=== PATIENT | female | born 1955 | race Caucasian/White ===

== ENCOUNTER → 2017-06-08 | Outpatient (CLI) | payer BC ==
--- NOTE | 2017-06-08 14:04 | MAMMOGRAPHY REPORT ---
BILATERAL DIGITAL SCREENING MAMMOGRAM TOMOSYNTHESIS WITH CAD: 06/08/2017 CLINICAL HISTORY: Routine screening. Patient has no complaints. TECHNIQUE: Breast tomosynthesis in addition to standard 2D mammography was performed. Current study was also evaluated with a Computer Aided Detection (CAD) system. COMPARISON: Comparison is made to exams dated: 05/24/2016 mammogram, 04/16/2015 mammogram, 02/18/2014 m ammogram, 01/31/2013 mammogram, 01/09/2012 mammogram, and 11/15/2010 mammogram - [facility] nter. BREAST COMPOSITION: There are scattered areas of fibroglandular density in both breasts. FINDINGS: No suspicious masses, calcifications, or areas of architectural distortion are noted in ei ther breast. There has been no significant interval change compared to prior exams. There are stable nodular asymmetries in the left inferior breast. IMPRESSION: ACR BI-RADS CATEGORY 2: BENIGN There is no mammographic evidence of malignancy. A 1 year screening mammogram is recommended. The pa tient will receive written notification of the results. Approximately 10% of breast cancers are not detected with mammography. A negative mammographic report should not delay biopsy if a clinically suggestive mass is present. Bel Mir M.D. /:06/08/2017 08:59:23 Cloth Inspector: Tash SHAW)(M), [facility] letter sent: Normal 1/2 BI-RADS Code: ACR BI-RADS Category 2: Benign
== END | disposition home or self-care (01) ==
LOC: C.MAMM 08:26
PROVIDERS: ATTEND Physician Assistant
DX: Z12.31 Encounter for screening mammogram for malignant neoplasm of breast (principal)

== ENCOUNTER 2022-01-18 17:34 | Observation (INO) ==
[2022-01-18 18:10] LABS: Basophils # (auto) 0.03 K/uL (0-0.2); Basophils % (auto) 0.3 %; Eosinophils # (auto) 0.01 K/uL (0-0.5); Eosinophils % (auto) 0.1 %; Hematocrit (blood only) 44.9 % (37-47); Hemoglobin 15.2 g/dL (12.0-16.0); Immature Granulocytes # (auto) 0.02 K/uL (0.00-0.02); Immature Granulocytes % (auto) 0.2 %; Lymphocytes % (auto) 5.1 %; Mean Corpuscular Hemoglobin 30.3 pg (25-34); Mean Corpuscular Hgb Conc 33.9 g/dL (32-36); Mean Corpuscular Volume 89.6 fL (80-100); Mean Platelet Volume 10.5 fL (7.4-10.4); Monocytes # (auto) 0.02 K/uL (0.11-0.59); Monocytes % (auto) 0.2 %; Neutrophils % (auto) 94.1 %; Platelet Count 250 K/uL (130-400); RDW Coefficient of Variation 12.9 % (11.5-14.5); RDW Standard Deviation 42.1 fL (36.4-46.3); Red Blood Count 5.01 M/uL (4.2-5.4); White Blood Count 9.78 K/uL (4.8-10.8)
[2022-01-18 18:26] LABS: Albumin Globulin Ratio 1.5 (0.9-2); Albumin Level 4.4 gm/dl (3.4-5.0); BUN Creatinine Ratio 20.6 (10-20); Bilirubin,Total 0.5 mg/dl (0.2-1.0); Calcium 9.4 mg/dl (8.5-10.1); Creatinine Clr Calc Pharmacy 84.6 ml/min; Est GFR (African American) 104.9 ml/min; Est GFR (Non-African American) 90.5 ml/min; Globulin 2.9 gm/dl (2.5-4.0); Potassium 3.7 mmol/L (3.5-5.1); Total Protein 7.3 gm/dl (6.0-8.3)
[2022-01-18] MEDS ORDERED: SODIUM CHLORIDE 0.9% 1000ML 1,000 ML IV ONE (20:03)
[2022-01-18] MEDS ORDERED: OPTIRAY 320 100ml IV ONE (20:13)
--- NOTE | 2022-01-18 20:29 | Emergency Department Note ---
Impression & Plan Acute appendicitis, Abdominal pain, Hepatic steatosis, Pulmonary nodule ED Provider Note NAME: EDILBERTO LEAL AGE: 66 SEX: F : 1955 ARRIVES VIA: Walk-In INFORMANT: Patient, ED PROVIDER(S): Mika Sotelo MD Chief Complaint: Abdominal pain HPI: Patient presents due to concern for abdominal pain which is described as emanating from the epigastrium area and rating down to her vagina. The patient states that this began after eating lunch today. The patient states that her pain is quite severe and did have some associated nausea but no vomiting. The patient did take some [id number] medications which did slightly improve her symptoms and currently rates it a 6 out of 10 in nature. Patient denies any fevers but did have some chills. The patient denies any dysuria hematuria. The patient has had a recent bowel movement denies any blood in the stools. Patient denies any prior history of abdominal surgeries. The patient states that she had a bout of this that she attributed to eating the same meal for about a week in duration back in August and thought that this may have been similar. The patient thought this might have been due to greasy foods. Patient states that she does have some occasional right upper quadrant pain as well. Patient denies any recent trauma heavy lifting twisting or turning. The patient does not notice any abdominal masses or swelling. ROS: See HPI for pertinent positives and negatives. A total of 10 systems were reviewed and otherwise negative. Past medical history: See below Surgical history: See below Social history: See below Physical Exam: GENERAL: NAD, wearing glasses, wearing a mask, non-toxic. EYE EXAM: Normal conjunctiva. PERRL, no anisocoria and EOM's grossly intact w/o pain. NECK: Supple, no nuchal rigidity, no adenopathy, non-tender. No signs of meningismus. LUNGS: Clear to auscultation. Normal chest wall mechanics. HEART: NSR, no MRG. ABDOMEN: Abdomen soft, epigastric and right upper quadrant pain, suprapubic and right lower quadrant pain, negative obturators and psoas normo-active bowel sounds, no masses, no rebound or guarding. BACK: No CVA TTP. SKIN: No rashes and no bruising. UPPER EXTREMITIES: Upper extremities are grossly normal. LOWER EXTREMITIES: Grossly normal, no edema. NEURO EXAM: A&O x3, cranial nerves II-XII grossly intact, normal speech, moves all 4 extremities on command w/o issue. Differential diagnoses: Appendicitis, ovarian cyst, ovarian torsion, ectopic , TOA, PID, infections, diverticulitis, UTI, obstruction, mesenteric ischemia, aortic pathology, inflammatory bowel disease, renal colic, PUD, pancreatitis, biliary pathology, hernia, volvulus, constipation, as well as oth er pathologies. Course: Patient was seen and evaluated the bedside. Full history physical exam was performed. Imaging Studies: See Below Cardiac monitoring: An order was placed for continuous cardiac monitoring. The monitor shows a rate of 94 with sinus rhythm. MDM: Patient presented to for abdominal pain. Blood work is obtained along with CT abdomen pelvis. The patient has a normal white count H&H and platelet count. Kidney function unremarkable. Mild elevation in blood sugar 158. Patient's LFTs and lipase are unremarkable. Patient CT abdomen pelvis did show concern for appendicitis. Patient was ordered Mefoxin and ordered a Covid test. I did speak to the on-call general surgeon Dr. Hernandes the patient was admitted to the surgical service and pending operative treatment in the OR. Past Med/Surg History Medical History Arthritis Hypertension Hypothyroidism Prediabetes Rectocele Surgical History H/O oral surgery Tooth extraction History of tonsillectomy History of vaginal hysterectomy with anterior and posterior repair Family History Mother Lung cancer Hypothyroidism Father Diabetes Hypertension Sister Hypothyroidism Denies family history of Ovarian cancer Breast cancer Colorectal cancer Social History Smoking Status: Never smoker Preferred Language: [place]rugu[place] Feels Safe at Home: Yes Allergies Allergies Allergy/AdvReac Type Severity Reaction Status Date / Time ibuprofen Allergy Mild rash, hives Verified 01/18/22 20:13 Penicillins Allergy Mild rash, hives Verified 01/18/22 20:13 Sulfa (Sulfonamide Allergy Unknown rash, hives Verified 01/18/22 20:13 Antibiotics) aspirin Allergy Unknown Verified 01/18/22 20:13 Home Meds Home Medications Medication Instructions Recorded Confirmed amlodipine 5 mg tablet 5 mg PO DAILY 02/25/20 01/18/22 biotin 1 mg capsule 0 mg PO DAILY 01/18/22 01/18/22 cholecalciferol (vitamin D3) 25 0 mcg PO DAILY 01/18/22 01/18/22 mcg (1,000 unit) tablet (Vitamin D3) levothyroxine 100 mcg tablet 100 mcg PO DAILY 01/18/22 01/18/22 loratadine 10 mg tablet (Claritin) 10 mg PO DAILY PRN 01/18/22 01/18/22 Results & Data (ED) Vital Signs Vital Signs - 24 hr 01/18/22 17:39 01/18/22 21:00 Temperature 37.1 C Temperature Source Temporal Artery Scan Pulse Rate 110 H Pulse Rate [Right Finger] 92 H Pulse Rhythm [Right Finger] Regular Pulse Strength [Right Finger] Normal Respiratory Rate 19 18 Respiratory Effort / Characteristics Non-Labored Spontaneous Respiratory Depth Normal Blood Pressure 159/84 H Blood Pressure [Right Arm] 177/95 H Blood Pressure Mean 109 Blood Pressure Mean [Right Arm] 122 Blood Pressure Position [Right Arm] Lying Pulse Oximetry 97 97 Oxygen Delivery Method Room Air Room Air Sepsis Recent Fever Within 48 Hours No Sepsis New/Unexplained Change in Mental Status N/A Sepsis Action Taken by Nursing No Action Required Home Medications Current Medication List: was personally reviewed by me Laboratory Data Attestation: I reviewed the patient's lab results. Result diagrams: 01/18/22 17:53 01/18/22 17:53 Lab Results 01/18/22 01/18/22 Range/Units 17:53 17:53 WBC 9.78 (4.8-10.8) K/uL RBC 5.01 (4.2-5.4) M/uL Hgb 15.2 (12.0-16.0) g/dL Hct 44.9 (37-47) % MCV 89.6 (80-100) fL MCH 30.3 (25-34) pg MCHC 33.9 (32-36) g/dL RDW Std Deviation 42.1 (36.4-46.3) fL RDW Coeff of Abilio 12.9 (11.5-14.5) % Plt Count 250 (130-400) K/uL MPV 10.5 H (7.4-10.4) fL Immature Gran % (Auto) 0.2 % Neut % (Auto) 94.1 % Lymph % (Auto) 5.1 % Pratt % (Auto) 0.2 % Eos % (Auto) 0.1 % Baso % (Auto) 0.3 % Neut # (Auto) 9.20 H (1.4-6.5) K/uL Lymph # (Auto) 0.50 L (1.2-3.4) K/uL Pratt # (Auto) 0.02 L (0.11-0.59) K/uL Eos # (Auto) 0.01 (0-0.5) K/uL Baso # (Auto) 0.03 (0-0.2) K/uL Immature Gran # (Auto) 0.02 (0.00-0.02) K/uL Sodium 137 (136-145) mmol/L Potassium 3.7 (3.5-5.1) mmol/L Chloride 101 (98-107) mmol/L Carbon Dioxide 24 (21-32) mmol/L Anion Gap 12 H (3-11) BUN 14 (6-23) mg/dl Creatinine 0.68 (0.6-1.2) mg/dl Est Cr Clr Drug Dosing 84.6 ml/min Est GFR ( Amer) 104.9 ml/min Est GFR (Non-Af Amer) 90.5 ml/min BUN/Creatinine Ratio 20.6 H (10-20) Glucose 158 H (70-99(Fasting)) mg/dl Calcium 9.4 (8.5-10.1) mg/dl Total Bilirubin 0.5 (0.2-1.0) mg/dl AST 18 (13-39) U/L ALT 25 (7-52) U/L Alkaline Phosphatase 62 (34-104) U/L Total Protein 7.3 (6.0-8.3) gm/dl Albumin 4.4 (3.4-5.0) gm/dl Globulin 2.9 (2.5-4.0) gm/dl Albumin/Globulin Ratio 1.5 (0.9-2) Lipase 19 (11-82) U/L Administered Medications Cefoxitin Sodium (Mefoxin) 2,000 mg in 60 mls @ 100 mls/hr IV NOW STA Stop: 01/18/22 21:50 Last Admin: 01/18/22 21:47 Dose: 100 mls/hr Documented by: [id number] Discontinued Medications Sodium Chloride (Nss 1000ml) 1,000 mls @ 999 mls/hr IV .Q1H1M ONE Stop: 01/18/22 21:03 Last Admin: 01/18/22 21:02 Dose: 999 mls/hr Documented by: [id number] Ioversol (Optiray 320 100ml) 93 ml IV ONCE ONE Stop: 01/18/22 20:14 Last Admin: 01/18/22 20:17 Dose: 93 ml Documented by: [id number] Imaging Data Radiologist's Impression: Abdomen/Pelvis CT 01/18/22 20:[address] WITH IV CONTRAST CT DOSE: 578.89 mGy.cm HISTORY: epigastric/RUQ pain and RLQ/suprapubic pain TECHNIQUE: Multiaxial CT images of the abdomen and pelvis were performed following the use of intravenous contrast. A dose lowering technique was utilized adhering to the principles of ALARA. COMPARISON STUDY: None. FINDINGS: There are 2 subcentimeter nodules within the right lower lobe with the largest on image 25 measuring 4 mm. No pneumoperitoneum. No pneumatosis. No fractures within the visualized osseous structures. There is a small hiatus hernia. Hepatic steatosis. The gallbladder, pancreas, spleen, adrenal glands are unremarkable. No hydronephrosis. Bilateral renal peripelvic cysts most pronounced on the left. Mild bladder wall thickening which is likely reactive. The main portal vein is patent. Normal caliber abdominal aorta. No retroperitoneal lymphadenopathy. Prior hysterectomy. 1 cm cyst within the right ovary. Normal left ovary. No evidence for small bowel obstruction. A few right- sided colonic diverticula. No evidence for acute diverticulitis. Mild thickening at the cecal base. The appendix is thick-walled and distended up to 1.4 cm. There is periappendiceal fat stranding and trace fluid within the right lower quadrant. Findings are consistent with acute appendicitis. No perforation or abscess at this time. Mild thickening within the adjacent sigmoid colon and terminal ileum is likely reactive to the acute appendicitis. Small calcified splenic artery aneurysm is noted. IMPRESSION: 1. Acute appendicitis. 2. Hepatic steatosis. 3. Subcentimeter nodules within the right lower lobe measure up to 4 mm. 4. Additional findings as described above. Please refer to below summary of Fleischner criteria recommendations for follow- up of incidental CT nodules (Rocky Shields, Guidelines for management of small pulmonary nodules detected on CT scans: A statement from the Fleischner Society, Radiology 237: [phone].) SOLID NODULES Solitary nodule size: <6 mm * Low risk patients: no follow-up needed * high risk patients: optional CT at 12 months Solitary nodule size: 6-8 mm * Low risk patients: follow-up at 6-12 months, then consider further follow-up at 18-24 months * high risk patients: initial follow-up CT at 6-12 months and then at 18-24 months if no change Solitary nodule size: >8 mm * either low or high risk patients - consider follow-up CT at 3 months, and/or CT-PET, and/or biopsy Multiple nodules size: <6 mm * Low risk patients: no routine follow-up * high risk patients: optional CT at 12 months Multiple nodules size: 6-8 mm * Low risk patients: follow-up at 3-6 months, then consider further follow-up at 18-24 months * high risk patients: follow-up at 3-6 months, then at 18-24 months if no change Multiple nodules size: >8 mm * Low risk patients: follow-up at 3-6 months, then consider further follow-up at 18-24 months * high risk patients: follow-up at 3-6 months, then at 18-24 months if no change Note: newly detected indeterminate nodule in persons 35 years of age or older. * Low risk patients: minimal or absent history of smoking and/or other known risk factors * high risk patients: history of smoking or of other known risk factors (e.g. first degree relative with lung cancer, or exposure to asbestos, radon, uranium) * if a nodule up to 8 mm is partly solid or is ground glass further follow-up is required after 24 months to exclude possible slow growing adenocarcinoma (NAOMI) SUBSOLID NODULES Solitary pure ground-glass nodule * nodule size <6 mm - no CT follow-up required * nodule size >=6 mm - follow-up CT at 6-12 months, then every 2 years until 5 years Solitary part-solid nodule * nodule size <6 mm - no CT follow-up required * nodule size >=6 mm - follow-up CT at 3-6 months. If unchanged, and solid component remains <6 mm, then annual follow-up for 5 years Multiple subsolid nodules * nodule size <6 mm - follow-up CT at 3-6 months, consider further follow-up at 2 and 4 years if stable * nodule size >=6 mm - follow-up CT at 3-6 months, subsequent management based on the most suspicious nodule(s) ACT 112: Negative or not required by law. Electronically signed by: Sohail Zhu M.D. 01/18/2022 8:41 PM Discharge Plan Visit Data Chief Complaint: Abdominal Pain Stated Complaint: ABDOMINAL PAIN, CHILLS, SHAKING, ED Provider: Mika Sotelo Discharge Problem: Acute appendicitis, Abdominal pain, Hepatic steatosis, Pulmonary nodule Patient Disposition: Being Evaluated by Surgeon Forms Stand Alone [facility] Prescriptions Prescriptions: No Action amlodipine 5 mg tablet 5 mg PO DAILY RF: 0 levothyroxine 100 mcg tablet 100 mcg PO DAILY RF: 0 loratadine [Claritin] 10 mg Tablet 10 mg PO DAILY PRN (Reason: allergies) RF: 0 cholecalciferol (vitamin D3) [Vitamin D3] 25 mcg (1,000 unit) Tablet 0 mcg PO DAILY RF: 0 biotin 1 mg Capsule 0 mg PO DAILY RF: 0 Referrals Referrals: Chon Santillan, [Primary Care Provider] -
--- NOTE | 2022-01-18 20:43 | CT Scan Report ---
ABDOMEN AND PELVIS CT WITH IV CONTRAST CT DOSE: 578.89 mGy.cm HISTORY: epigastric/RUQ pain and RLQ/suprapubic pain TECHNIQUE: Multiaxial CT images of the abdomen and pelvis were performed following the use of intrave nous contrast. A dose lowering technique was utilized adhering to the principles of ALARA. COMPARISON STUDY: None. FINDINGS: There are 2 subcentimeter nodules within the right lower lobe with the largest on image 25 measuring 4 mm. No pneumoperitoneum. No pneumatosis. No fractures within the visualized osseous struc tures. There is a small hiatus hernia. Hepatic steatosis. The gallbladder, pancreas, spleen, adrenal glands are unremarkable. No hydronephrosis. Bilateral renal peripelvic cysts most pronounced on the l eft. Mild bladder wall thickening which is likely reactive. The main portal vein is patent. Normal ca liber abdominal aorta. No retroperitoneal lymphadenopathy. Prior hysterectomy. 1 cm cyst within the r ight ovary. Normal left ovary. No evidence for small bowel obstruction. A few right-sided colonic div erticula. No evidence for acute diverticulitis. Mild thickening at the cecal base. The appendix is th ick-walled and distended up to 1.4 cm. There is periappendiceal fat stranding and trace fluid within the right lower quadrant. Findings are consistent with acute appendicitis. No perforation or abscess at this time. Mild thickening within the adjacent sigmoid colon and terminal ileum is likely reactive to the acute appendicitis. Small calcified splenic artery aneurysm is noted. IMPRESSION: 1. Acute appendicitis. 2. Hepatic steatosis. 3. Subcentimeter nodules within the right lower lobe measure up to 4 mm. 4. Additional findings as described above. Please refer to below summary of Fleischner criteria recommendations for follow-up of incidental CT n odules ([place] [employer], Guidelines for management of small pulmonary nodules detected on CT scans: A sta tement from the Fleischner Society, Radiology 237: [phone].) SOLID NODULES Solitary nodule size: <6 mm * Low risk patients: no follow-up needed * high risk patients: optional CT at 12 months Solitary nodule size: 6-8 mm * Low risk patients: follow-up at 6-12 months, then consider further follow-up at 18-24 months * high risk patients: initial follow-up CT at 6-12 months and then at 18-24 months if no change Solitary nodule size: >8 mm * either low or high risk patients - consider follow-up CT at 3 months, and/or CT-PET, and/or biopsy Multiple nodules size: <6 mm * Low risk patients: no routine follow-up * high risk patients: optional CT at 12 months Multiple nodules size: 6-8 mm * Low risk patients: follow-up at 3-6 months, then consider further follow-up at 18-24 months * high risk patients: follow-up at 3-6 months, then at 18-24 months if no change Multiple nodules size: >8 mm * Low risk patients: follow-up at 3-6 months, then consider further follow-up at 18-24 months * high risk patients: follow-up at 3-6 months, then at 18-24 months if no change Note: newly detected indeterminate nodule in persons 35 years of age or older. * Low risk patients: minimal or absent history of smoking and/or other known risk factors * high risk patients: history of smoking or of other known risk factors (e.g. first degree relative with lung cancer, or exposure to asbestos, radon, uranium) * if a nodule up to 8 mm is partly solid or is ground glass further follow-up is required after 24 m onths to exclude possible slow growing adenocarcinoma (NAOMI) SUBSOLID NODULES Solitary pure ground-glass nodule * nodule size <6 mm - no CT follow-up required * nodule size >=6 mm - follow-up CT at 6-12 months, then every 2 years until 5 years Solitary part-solid nodule * nodule size <6 mm - no CT follow-up required * nodule size >=6 mm - follow-up CT at 3-6 months. If unchanged, and solid component remains <6 mm, then annual follow-up for 5 years Multiple subsolid nodules * nodule size <6 mm - follow-up CT at 3-6 months, consider further follow-up at 2 and 4 years if sta ble * nodule size >=6 mm - follow-up CT at 3-6 months, subsequent management based on the most suspiciou s nodule(s) ACT 112: Negative or not required by law. Electronically signed by: Sohail Zhu M.D. 01/18/2022 8:41 PM
[2022-01-18] MEDS ORDERED: cefOXitin 2,000 MG/60 ML BAG IV STA (21:15)
[2022-01-18] MEDS ORDERED: LORazepam 2 MG/1 ML VIAL ONE (22:08)
[2022-01-18] MEDS ORDERED: LORazepam 2 MG/1 ML VIAL IV STA (22:10)
[2022-01-18] MEDS ORDERED: BACITRACIN OINT 15 GM TUBE ONE (22:18)
[2022-01-18] MEDS ORDERED: LIDOCAINE 1% LOCAL 20 ML VIAL ONE (22:18)
[2022-01-18] MEDS ORDERED: BUPIVACAINE 0.5 % 5 MG/1 ML MPF 30ML VIAL ONE (22:18)
[2022-01-18] MEDS ORDERED: PROPOFOL IV EMULSION 10 MG/ML 20 ML VIAL IV ONE (22:19)
[2022-01-18] MEDS ORDERED: ROCURONIUM BROMIDE 10 MG/ML 5 ML VIAL IV ONE (22:19)
[2022-01-18] MEDS ORDERED: SUCCINYLCHOLINE CHLORIDE 20 MG/ML 10 ML VIAL IV ONE (22:19)
[2022-01-18] MEDS ORDERED: GLYCOPYRROLATE 0.2 MG/ML VIAL ONE (22:19)
[2022-01-18] MEDS ORDERED: NEOSTIGMINE METHYLSULFATE 1 MG/ML 10ML VIAL ONE (22:19)
[2022-01-18] MEDS ORDERED: fentaNYL citrate 100 MCG/2 ML VIAL ONE ×2 (22:19)
[2022-01-18] MEDS ORDERED: MIDAZOLAM HCL 1 MG/ML 2ML VIAL ONE (22:19)
[2022-01-18] MEDS ORDERED: ONDANSETRON INJ 2 MG/ML 2 ML VIAL ONE (22:19)
--- NOTE | 2022-01-18 22:20 | Surgery Consultation ---
Date of Consultation January 18, 2022 Assessment & Plan (1) Acute appendicitis: pt is a 66 year-old female who presents with one day history abdominal pain, IMP: acute appendicitis, plan, I recommend to do laparoscopic appendectomy, possible open , D/W benefits, risks and alternatives of the surgery, the risks - infection, bleeding, injury other organs, abscess, NM, DVT, stroke, , incisional hernia, pt and her understood, they agree with the surgery, pt signed informed consent, I answered all questions, pre-op antibiotic, History of Present Illness Reason for Consultation: acute abdominal pain, appendicitis, Requesting Physician: Mika Luceor MD History of Present Illness CC: acute abdominal pain HPI: pt is a 66 year-old female who presents to ER with one day history epigastric pain with nausea, and chills, later on the pain is located at RLQ area, the pain is 7/10, last BM yesterday, pt denies chest pain, no diarrhea, no cough, no dysuria, pt had CT scan done at ER - diagnosis- acute appendicitis, I got a call for consult acute appendicitis, Allergies Allergy/AdvReac Type Severity Reaction Status Date / Time ibuprofen Allergy Mild rash, hives Verified 01/18/22 20:13 Penicillins Allergy Mild rash, hives Verified 01/18/22 20:13 Sulfa (Sulfonamide Allergy Unknown rash, hives Verified 01/18/22 20:13 Antibiotics) aspirin Allergy Unknown Verified 01/18/22 20:13 Home Medications Medication Instructions Recorded Confirmed Type amlodipine 5 mg tablet 5 mg PO DAILY 02/25/20 01/18/22 History biotin 1 mg capsule 0 mg PO DAILY 01/18/22 01/18/22 History cholecalciferol (vitamin D3) 25 0 mcg PO DAILY 01/18/22 01/18/22 History mcg (1,000 unit) tablet (Vitamin D3) levothyroxine 100 mcg tablet 100 mcg PO DAILY 01/18/22 01/18/22 History loratadine 10 mg tablet (Claritin) 10 mg PO DAILY PRN 01/18/22 01/18/22 History Patient History Medical History Arthritis Hypertension Hypothyroidism Prediabetes Rectocele Surgical History H/O oral surgery Tooth extraction History of tonsillectomy History of vaginal hysterectomy with anterior and posterior repair Family History Mother Lung cancer Hypothyroidism Father Diabetes Hypertension Sister Hypothyroidism Denies family history of Ovarian cancer Breast cancer Colorectal cancer Social History Smoking Status: Never smoker Preferred Language: Danish Feels Safe at Home: Yes Review of Systems Constitutional: as per Subjective / HPI Eyes: as per Subjective / HPI Respiratory: as per Subjective / HPI (pulmonary nodule, ) Cardiovascular: Additional Comments: HTN Gastrointestinal: as per Subjective / HPI Genitourinary: as per Subjective / HPI Musculoskeletal: arthritis Neurologic: as per Subjective / HPI Psychiatric: as per Subjective / HPI Endocrine: hypothyroidism Hematologic / Lymphatic: as per Subjective / HPI Physical Exam Constitutional: WD/WN, vitals as above Eyes: PERRL, conjunctivae normal, anicteric sclerae Neck: trachea midline, no thyromegaly Respiratory: normal respiratory effort, lungs clear to auscultation Cardiovascular: RRR, no murmur, no edema Gastrointestinal (Abdomen): soft, tenderness at RLQ, no rebound pain, no distend, BS + Musculoskeletal: no cyanosis or clubbing, extremities motor strength 5/5 Neurologic: patellar DTR's 2+ bilat, sensation intact Psychiatric: A+Ox3, euthymic affect Results & Data ([facility]) Vital Signs (Past 12 Hours) Vital Signs Temp Pulse Pulse Resp BP BP Pulse Ox 01/18/22 21:00 92 H 18 177/95 H 97 01/18/22 17:39 37.1 C 110 H 19 159/84 H 97 Laboratory Results Abnormal lab results 01/18/22 01/18/22 Range/Units 17:53 17:53 MPV 10.5 H (7.4-10.4) fL Neut # (Auto) 9.20 H (1.4-6.5) K/uL Lymph # (Auto) 0.50 L (1.2-3.4) K/uL [place] # (Auto) 0.02 L (0.11-0.59) K/uL Anion Gap 12 H (3-11) BUN/Creatinine Ratio 20.6 H (10-20) Glucose 158 H (70-99(Fasting)) mg/dl Diagnostic Findings ABDOMEN AND PELVIS CT WITH IV CONTRAST CT DOSE: 578.89 mGy.cm HISTORY: epigastric/RUQ pain and RLQ/suprapubic pain TECHNIQUE: Multiaxial CT images of the abdomen and pelvis were performed following the use of intravenous contrast. A dose lowering technique was utilized adhering to the principles of ALARA. COMPARISON STUDY: None. FINDINGS: There are 2 subcentimeter nodules within the right lower lobe with the largest on image 25 measuring 4 mm. No pneumoperitoneum. No pneumatosis. No fractures within the visualized osseous structures. There is a small hiatus hernia. Hepatic steatosis. The gallbladder, pancreas, spleen, adrenal glands are unremarkable. No hydronephrosis. Bilateral renal peripelvic cysts most pronounced on the left. Mild bladder wall thickening which is likely reactive. The main portal vein is patent. Normal caliber abdominal aorta. No retroperitoneal lymphadenopathy. Prior hysterectomy. 1 cm cyst within the right ovary. Normal left ovary. No evidence for small bowel obstruction. A few right- sided colonic diverticula. No evidence for acute diverticulitis. Mild thickening at the cecal base. The appendix is thick-walled and distended up to 1.4 cm. There is periappendiceal fat stranding and trace fluid within the right lower quadrant. Findings are consistent with acute appendicitis. No perforation or abscess at this time. Mild thickening within the adjacent sigmoid colon and terminal ileum is likely reactive to the acute appendicitis. Small calcified splenic artery aneurysm is noted. IMPRESSION: 1. Acute appendicitis. 2. Hepatic steatosis. 3. Subcentimeter nodules within the right lower lobe measure up to 4 mm. 4. Additional findings as described above. (1) Acute appendicitis Acute appendicitis type: with localized peritonitis Appendicitis abscess presence: without abscess Appendicitis gangrene presence: without gangrene Appendicitis perforation presence: without perforation Qualified Code(s): K35.30 - Acute appendicitis with localized peritonitis, without perforation or gangrene
[2022-01-18] MEDS ORDERED: fentaNYL citrate 100 MCG/2 ML VIAL IV PRN (22:23)
[2022-01-18] MEDS ORDERED: ONDANSETRON INJ 2 MG/ML 2 ML VIAL IV PRN (22:23)
[2022-01-18] MEDS ORDERED: ePHEDrine sulfate 50 MG/ML AMP IV PRN (22:23)
[2022-01-18] MEDS ORDERED: HYDROmorphone INJ 1 MG/ML SYRINGE IV PRN (22:23)
[2022-01-18] MEDS ORDERED: ATROPINE SULFATE 0.1 MG/ML 10ML SYR IV PRN (22:23)
--- NOTE | 2022-01-18 22:25 | History & Physical Bridge Note ---
Date of Service January 18, 2022 History & Physical Bridge Note I have examined the patient, reviewed the History & Physical and in the interval since the performance of the History & Physical I have noted the following changes of clinical significance: no changes noted
--- NOTE | 2022-01-18 22:26 | Anesthesiology Consultation ---
Date of Service January 18, 2022 Assessment & Plan (1) Encounter for pre-operative examination: Chart Review Chart Review: Acceptable Risk for Surgery and Patient NOT seen in Pre Admission Testing Consults Requested none History Surgery Operation Date: 01/18/22 23:00 Proposed Procedures p Laparoscopic Appendectomy - Maria Eugenia Hernandes MD Height/Weight Height: 5 ft 5 in Weight: 81.4 kg Allergies Allergy/AdvReac Type Severity Reaction Status Date / Time ibuprofen Allergy Mild rash, hives Verified 01/18/22 20:13 Penicillins Allergy Mild rash, hives Verified 01/18/22 20:13 Sulfa (Sulfonamide Allergy Unknown rash, hives Verified 01/18/22 20:13 Antibiotics) aspirin Allergy Unknown Verified 01/18/22 20:13 Medications Home Medications Medication Instructions Recorded Confirmed Last Taken amlodipine 5 mg tablet 5 mg PO DAILY 02/25/20 01/18/22 01/18/22 12:00 biotin 1 mg capsule 0 mg PO DAILY 01/18/22 01/18/22 Unknown cholecalciferol (vitamin D3) 25 0 mcg PO DAILY 01/18/22 01/18/22 Unknown mcg (1,000 unit) tablet (Vitamin D3) levothyroxine 100 mcg tablet 100 mcg PO DAILY 01/18/22 01/18/22 01/18/22 08:00 loratadine 10 mg tablet (Claritin) 10 mg PO DAILY PRN 01/18/22 01/18/22 Unknown Past Medical History Medical History Arthritis Hypertension Hypothyroidism Prediabetes Rectocele Exercise / Class Metabolic Activity II 4-5 Yardwork/Stairs/Walk up hill Past Family History Family History Mother Lung cancer Hypothyroidism Father Diabetes Hypertension Sister Hypothyroidism Denies family history of Ovarian cancer Breast cancer Colorectal cancer Past Surgical History Surgical History H/O oral surgery Tooth extraction History of tonsillectomy History of vaginal hysterectomy with anterior and posterior repair Past Anesthesia History No Hx of Anesthesia Complications and No Family Hx of Anesthesia Complications History of PONV No Hx of PONV and No Hx of Motion Sickness Social History Smoking Status: Never smoker Physical Exam Vital Signs Last Vital Signs Temp 37.1 C 01/18/22 17:39 Pulse 92 H 01/18/22 21:00 Resp 18 01/18/22 21:00 BP 177/95 H 01/18/22 21:00 Pulse Ox 97 01/18/22 21:00 Testing Laboratory Results 01/18/22 17:53 01/18/22 17:53 Urine Color Yellow 01/18/22 21:11 Urine Appearance Clear (Clear) 01/18/22 21:11 Urine pH 6.5 (4.5-7.5) 01/18/22 21:11 Ur Specific [place] > 1.045 (1.000-1.030) H 01/18/22 21:11 Urine Protein Negative (Negative) 01/18/22 21:11 Urine Glucose (UA) Negative (Negative) 01/18/22 21:11 Urine Ketones Negative (Negative) 01/18/22 21:11 Urine Nitrite Negative (Negative) 01/18/22 21:11 Ur Leukocyte Esterase Negative (Negative) 01/18/22 21:11
[2022-01-18 22:38] LABS: Appearance Urine Clear (Clear); Bilirubin Urine Negative (Negative); Blood Urine Negative (Negative); Color Urine Yellow; Glucose Urine UA Negative (Negative); Ketones Urine Negative (Negative); Leukocyte Esterase Urine Negative (Negative); Nitrite Urine Negative (Negative); Protein Urine Negative (Negative); Specific Gravity Urine > 1.045 (1.000-1.030); Urobilinogen Urine Negative (Negative); pH Urine 6.5 (4.5-7.5)
[2022-01-18] MEDS ORDERED: CIPROFLOXACIN / D5W 400 MG/200 ML BAG IV SCH (23:00)
--- NOTE | 2022-01-19 00:26 | Post Operative Brief Note ---
Immediate Post Op Note v1 Date of Surgery January 19, 2022 Pre & Post Diagnosis Operation Date: 01/18/22 23:00 Pre-Op Diagnosis: Acute appendicitis Post-Op Diagnosis: Acute appendicitis , perforation of appendix I identified the patient and participated in the time-out.: Yes Procedure Operation Date: 01/18/22 23:00 Actual Procedures p Laparoscopic Appendectomy - Maria Eugenia Hernandes MD Surgeon Maria Eugenia Hernandes MD [employer] registered nurse surgical services Estimated Blood Loss 10 Findings Consistent with Post-Op Diagnosis acute appendicitis, with perforation Fluids 1000ml Specimens appendix Drains Cesar-Brewer Drain (10mm Flat) Anesthesia Type General Complications none Disposition Accompanied Patient To Recovery: Yes
--- NOTE | 2022-01-19 01:46 | Anesthesiology Progress Note ---
Date of Service January 19, 2022 Anesthesia Post Procedure Vital Signs Vital Signs: Temp Pulse Pulse Resp BP BP Pulse Ox 01/19/22 01:30 36.6 C 89 20 145/63 H 95 01/19/22 01:25 91 H 16 159/76 H 94 01/19/22 01:20 92 H 12 167/81 H 93 01/19/22 01:15 93 H 16 160/94 H 95 01/19/22 01:10 93 H 22 169/84 H 92 01/19/22 01:05 91 H 20 164/80 H 91 01/19/22 01:01 96 H 17 94 01/19/22 01:00 167/82 H 01/19/22 00:59 97 H 17 93 01/19/22 00:55 98 H 19 174/81 H 94 01/19/22 00:50 100 H 18 171/79 H 95 01/19/22 00:46 101 H 23 92 01/19/22 00:45 178/81 H 01/18/22 23:38 37.5 C 108 H 16 175/93 H 92 01/18/22 21:00 92 H 18 177/95 H 97 01/18/22 17:39 37.1 C 110 H 19 159/84 H 97 Transfer of Care Handoff Completed per policy Notes Mental Status: alert / awake / arousable and participated in evaluation Patient Amnestic to Procedure: Yes Nausea / Vomiting: adequately controlled Pain: adequately controlled Airway Patency, RR, SpO2: stable & adequate BP & HR: stable & adequate Hydration State: stable & adequate Anesthetic Complications: no major complications apparent and Pt Satisfied with anesthetic care Notes: pt to be kept on 2l nc and continuous pulse ox on floor
[2022-01-19] MEDS ORDERED: LORATADINE 10 MG TAB PO PRN (02:02)
[2022-01-19] MEDS ORDERED: ONDANSETRON INJ 2 MG/ML 2 ML VIAL IV PRN (02:02)
[2022-01-19] MEDS: LACTATED RINGER'S 1,000 ML IV SCH ×2 (02:55→16:01)
[2022-01-19] MEDS: HYDROmorphone INJ 0.5 MG/0.5 ML SYR IV PRN ×4 (02:56→21:01)
[2022-01-19] MEDS: CIPROFLOXACIN / D5W 400 MG/200 ML BAG IV SCH ×2 (04:13→16:30)
[2022-01-19] MEDS: LEVOTHYROXINE SODIUM 100 MCG TABLET PO SCH (06:34)
--- NOTE | 2022-01-19 07:05 | Operative Report (OR) ---
DATE OF PROCEDURE: 01/18/2022 PREOPERATIVE DIAGNOSIS: Acute appendicitis. POSTOPERATIVE DIAGNOSIS: Acute appendicitis with perforation of the appendix. OPERATION: Laparoscopic appendectomy. SURGEON: Maria Eugenia Hernandes MD. ANESTHESIA: General. ESTIMATED BLOOD LOSS: About 10 mL FINDINGS: Acute appendicitis with perforation. COMPLICATIONS: None. INDICATIONS FOR THE PROCEDURE: This is a 66-year-old female who presented to ED with 1-day history of abdominal pain and the patient had a CT scan diagnosis of acute appendicitis. I recommended to do laparoscopic appendectomy, possible open. I did talk to the patient and the patient's about the benefits, risks, and alternate procedure. I indicated the risks may include, but not limited to, such as bleeding, infection, abscess, injury to the bowel, bowel perforation, leak, sepsis, myocardial infarction, DVT, stroke, even , incisional hernia. They understand. The patient signed informed consent and I answered all questions. DETAILS OF PROCEDURE: After we identified the patient and verified the procedure, we brought the patient to the OR, put the patient in the supine position on the OR table. The patient received SCD on bilateral leg to prevent DVT. Also, patient received 2 grams cefoxitin IV for prophylactic antibiotic and 400 mg of Cipro IV for prophylactic antibiotic. The patient received general anesthesia without difficulty. The abdomen was prepped and draped in routine sterile fashion. After timeout, I injected the local anesthesia by using 1% lidocaine mixed with 0.5% Marcaine just above the umbilicus. I then made a small incision just above umbilicus, opened fascia, opened peritoneum under direct vision, put a Andreea trocar in, connected to CO2 to create pneumoperitoneum, flow rate at 6 liters per minute, pressure not more than 14 mmHg. Once we got a nice pneumoperitoneum, we put a camera in, looked around the abdomen, it shows significant inflammation with free fluid pus on the right lower quadrant area. Then we put another two 5 mm trocars on the left lower quadrant area, then we mobilized the cecum area. We found the patient had acute appendicitis with appendix base perforation and we suctioned some fluid and send the culture and at this moment, we mobilized the appendix, used the Harmonic to take down the appendiceal, and also the patient has significant inflammation on the cecum. We used a 45 mm Endo-ELVER stapler for transection on the base of appendix, rechecked, no leak, no active bleeding. Then, we used the saline to flush the right lower quadrant area and pelvic area to suction all the fluid out. Then, we put a 10 mm AMARI drainage on the right lower quadrant area and used 2-0 silk to fix the AMARI on the skin. Again, after we removed the appendix through the catch bag. Then, we reinserted the Andreea trocar in, connected to CO2 to create pneumoperitoneum, again looked around the abdomen. No leak on the cecum area and AMARI drainage put on the right lower quadrant area near the cecum. Then, we removed all trocars under direct vision. No active bleeding from the trocar site. Pneumoperitoneum was released, then I closed umbilical incision fascia by using 0 Vicryl [id number] x2, closed subcutaneous layer by using 2-0 Vicryl interruptedly, closed skin by using 4-0 Vicryl continuous running, closed another 5 mm trocar sites skin only by using 4-0 Vicryl. Then, we put the dressing on. The patient tolerated the procedure well. All instrument, needle and sponge counts were correct x2 at the end of the case. The patient was transferred to recovery room in stable condition. The specimen was sent to pathology. After the procedure, I did talk to the patient and the patient's about the OR finding and the procedure we did, they understand. Job ID: [id number] MTDD
[2022-01-19 08:26] LABS: Albumin Globulin Ratio 1.4 (0.9-2); Albumin Level 3.8 gm/dl (3.4-5.0); BUN Creatinine Ratio 13.9 (10-20); Bilirubin,Total 0.5 mg/dl (0.2-1.0); Calcium 8.7 mg/dl (8.5-10.1); Creatinine Clr Calc Pharmacy 76.6 ml/min; Est GFR (African American) 100.4 ml/min; Est GFR (Non-African American) 86.7 ml/min; Globulin 2.7 gm/dl (2.5-4.0); Total Protein 6.5 gm/dl (6.0-8.3)
[2022-01-19] MEDS: amLODIPine BESYLATE 5 MG TAB PO SCH (08:44)
[2022-01-19] MEDS: CHOLECALCIFEROL 1,000 UNITS 25 MCG TAB PO SCH (08:45)
[2022-01-19] MEDS ORDERED: NON-FORMULARY MEDICATION (Biotin 1 mg Capsule) PO SCH (09:00)
[2022-01-19] MEDS ORDERED: ACETAMINOPHEN 325 MG TAB PO PRN (10:53)
[2022-01-19] MEDS ORDERED: LORATADINE 10 MG TAB PO ONE (15:38)
[2022-01-19] MEDS ORDERED: VANCOMYCIN CONSULT ACTIVE PRN (15:47)
[2022-01-19] MEDS ORDERED: VANCOMYCIN HCL 1,000 MG in SODIUM CHLORIDE 0.9% 250 ML IV SCH (16:00)
[2022-01-19] MEDS: metroNIDAZOLE 500 MG/100 ML BAG IV SCH (16:30)
--- NOTE | 2022-01-19 16:44 | Surgery Progress Note ---
Date of Service January 19, 2022 Assessment & Plan (1) Acute appendicitis: Plan: Postop day #0 status post laparoscopic appendectomy for perforated appendicitis Afebrile, vital signs stable Moderate postop pain not well controlled AMARI drain with serosanguineous output No nausea no vomiting Rash of forehead and back, questionable etiology possibly linens versus cefoxitin given her penicillin allergy Plan: Continue pain management as needed we will change IV Dilaudid to every 3 hours as needed and add p.o. Percocet and p.o. Tylenol as needed Advance diet to clear liquids Continue IV fluids Continue IV Cipro but will stop cefoxitin and add IV Flagyl Continue AMARI drain to bulb suction Encourage out of bed to chair and ambulation with better pain management Repeat a.m. labs Likely will be hospitalized for 3 days for IV antibiotics given perforation Discussed with Dr. Hernandes who agrees with above Admission and Anticipated Discharge Date Admission Date: January 19, 2022 Subjective Having moderate amount of pain at incision sites. States forehead and back has a red rash and forehead feels hot to touch. No fevers., No nausea, no vomiting No chest pain or shortness of breath Getting out of bed and ambulating to the bathroom Urinating without difficulty Physical Exam Constitutional: WD/WN, vitals as above no acute distress and not ill appearing Neck: normal visual inspection and trachea midline Respiratory: normal respiratory effort; no respiratory distress, no labored breathing and no retractions Gastrointestinal (Abdomen): Inspection/Auscultation: abdomen normal to inspection, + abdominal surgical incision (Covered with clean, dry, intact dressings) and + abdominal surgical drain present (Serosanguineous); abdomen not distended Percussion/Palpation: + abdomen tender (At incision sites and drain site) and abdomen soft; no guarding and abdomen not rigid Skin: + rash (Small maculopapular rash of the forehead and back no hives) Psychiatric: A+Ox3, euthymic affect Results & Data ([facility]) Vital Signs (Past 12 Hours) Vital Signs Temp Pulse Resp BP Pulse Ox 01/19/22 16:34 37.1 C 01/19/22 15:34 37.1 C 80 16 143/80 H 95 01/19/22 07:37 36.9 C 85 16 139/76 95 01/19/22 05:02 37 C 90 16 149/77 H 97 Laboratory Results 01/19/22 01/18/22 01/18/22 Range/Units 07:12 22:00 21:11 WBC (4.8-10.8) K/uL RBC (4.2-5.4) M/uL Hgb (12.0-16.0) g/dL Hct (37-47) % MCV (80-100) fL MCH (25-34) pg MCHC (32-36) g/dL RDW Std Deviation (36.4-46.3) fL RDW Coeff of Abilio (11.5-14.5) % Plt Count (130-400) K/uL MPV (7.4-10.4) fL Immature Gran % (Auto) % Neut % (Auto) % Lymph % (Auto) % [place] % (Auto) % Eos % (Auto) % Baso % (Auto) % Neut # (Auto) (1.4-6.5) K/uL Lymph # (Auto) (1.2-3.4) K/uL [place] # (Auto) (0.11-0.59) K/uL Eos # (Auto) (0-0.5) K/uL Baso # (Auto) (0-0.2) K/uL Immature Gran # (Auto) (0.00-0.02) K/uL Sodium 135 L (136-145) mmol/L Potassium 4.0 (3.5-5.1) mmol/L Chloride 102 (98-107) mmol/L Carbon Dioxide 24 (21-32) mmol/L Anion Gap 9 (3-11) BUN 10 (6-23) mg/dl Creatinine 0.72 (0.6-1.2) mg/dl Est Cr Clr Drug Dosing 76.6 ml/min Est GFR ( Amer) 100.4 ml/min Est GFR (Non-Af Amer) 86.7 ml/min BUN/Creatinine Ratio 13.9 (10-20) Glucose 188 H (70-99(Fasting)) mg/dl Calcium 8.7 (8.5-10.1) mg/dl Total Bilirubin 0.5 (0.2-1.0) mg/dl AST 14 (13-39) U/L ALT 20 (7-52) U/L Alkaline Phosphatase 48 (34-104) U/L Total Protein 6.5 (6.0-8.3) gm/dl Albumin 3.8 (3.4-5.0) gm/dl Globulin 2.7 (2.5-4.0) gm/dl Albumin/Globulin Ratio 1.4 (0.9-2) Lipase (11-82) U/L Urine Color Yellow Urine Appearance Clear (Clear) Urine pH 6.5 (4.5-7.5) Ur Specific [place] > 1.045 H (1.000-1.030) Urine Protein Negative (Negative) Urine Glucose (UA) Negative (Negative) Urine Ketones Negative (Negative) Urine Blood Negative (Negative) Urine Nitrite Negative (Negative) Urine Bilirubin Negative (Negative) Urine Urobilinogen Negative (Negative) Ur Leukocyte Esterase Negative (Negative) SARS-CoV-2, RNA, NAAT NEGATIVE (NEGATIVE) 01/18/22 01/18/22 Range/Units 17:53 17:53 WBC 9.78 (4.8-10.8) K/uL RBC 5.01 (4.2-5.4) M/uL Hgb 15.2 (12.0-16.0) g/dL Hct 44.9 (37-47) % MCV 89.6 (80-100) fL MCH 30.3 (25-34) pg MCHC 33.9 (32-36) g/dL RDW Std Deviation 42.1 (36.4-46.3) fL RDW Coeff of Abilio 12.9 (11.5-14.5) % Plt Count 250 (130-400) K/uL MPV 10.5 H (7.4-10.4) fL Immature Gran % (Auto) 0.2 % Neut % (Auto) 94.1 % Lymph % (Auto) 5.1 % [place] % (Auto) 0.2 % Eos % (Auto) 0.1 % Baso % (Auto) 0.3 % Neut # (Auto) 9.20 H (1.4-6.5) K/uL Lymph # (Auto) 0.50 L (1.2-3.4) K/uL [place] # (Auto) 0.02 L (0.11-0.59) K/uL Eos # (Auto) 0.01 (0-0.5) K/uL Baso # (Auto) 0.03 (0-0.2) K/uL Immature Gran # (Auto) 0.02 (0.00-0.02) K/uL Sodium 137 (136-145) mmol/L Potassium 3.7 (3.5-5.1) mmol/L Chloride 101 (98-107) mmol/L Carbon Dioxide 24 (21-32) mmol/L Anion Gap 12 H (3-11) BUN 14 (6-23) mg/dl Creatinine 0.68 (0.6-1.2) mg/dl Est Cr Clr Drug Dosing 84.6 ml/min Est GFR ( Amer) 104.9 ml/min Est GFR (Non-Af Amer) 90.5 ml/min BUN/Creatinine Ratio 20.6 H (10-20) Glucose 158 H (70-99(Fasting)) mg/dl Calcium 9.4 (8.5-10.1) mg/dl Total Bilirubin 0.5 (0.2-1.0) mg/dl AST 18 (13-39) U/L ALT 25 (7-52) U/L Alkaline Phosphatase 62 (34-104) U/L Total Protein 7.3 (6.0-8.3) gm/dl Albumin 4.4 (3.4-5.0) gm/dl Globulin 2.9 (2.5-4.0) gm/dl Albumin/Globulin Ratio 1.5 (0.9-2) Lipase 19 (11-82) U/L Urine Color Urine Appearance (Clear) Urine pH (4.5-7.5) Ur Specific [place] (1.000-1.030) Urine Protein (Negative) Urine Glucose (UA) (Negative) Urine Ketones (Negative) Urine Blood (Negative) Urine Nitrite (Negative) Urine Bilirubin (Negative) Urine Urobilinogen (Negative) Ur Leukocyte Esterase (Negative) SARS-CoV-2, RNA, NAAT (NEGATIVE) Microbiology 01/18/22 23:39 Gram Stain - Final Abdomen (1) Acute appendicitis Acute appendicitis type: with localized peritonitis Appendicitis abscess presence: without abscess Appendicitis gangrene presence: without gangrene Appendicitis perforation presence: without perforation Qualified Code(s): K35.30 - Acute appendicitis with localized peritonitis, without perforation or gangrene
[2022-01-20] MEDS: metroNIDAZOLE 500 MG/100 ML BAG IV SCH ×4 (00:22→23:21)
[2022-01-20] MEDS: HYDROmorphone INJ 0.5 MG/0.5 ML SYR IV PRN (00:36)
[2022-01-20] MEDS: CIPROFLOXACIN / D5W 400 MG/200 ML BAG IV SCH ×2 (05:02→16:25)
[2022-01-20] MEDS: LEVOTHYROXINE SODIUM 100 MCG TABLET PO SCH (05:17)
[2022-01-20] MEDS: LACTATED RINGER'S 1,000 ML IV SCH ×2 (05:36→09:51)
[2022-01-20 06:09] LABS: BUN Creatinine Ratio 16.7 (10-20); Calcium 8.5 mg/dl (8.5-10.1); Creatinine Clr Calc Pharmacy 83.5 ml/min; Est GFR (African American) 105.9 ml/min; Est GFR (Non-African American) 91.4 ml/min; Potassium 3.7 mmol/L (3.5-5.1)
[2022-01-20 06:17] LABS: Basophils # (auto) 0.02 K/uL (0-0.2); Basophils % (auto) 0.2 %; Eosinophils # (auto) 0.04 K/uL (0-0.5); Eosinophils % (auto) 0.4 %; Hematocrit (blood only) 39.1 % (37-47); Hemoglobin 13.1 g/dL (12.0-16.0); Immature Granulocytes # (auto) 0.02 K/uL (0.00-0.02); Immature Granulocytes % (auto) 0.2 %; Lymphocytes # (auto) 1.19 K/uL (1.2-3.4); Lymphocytes % (auto) 11.7 %; Mean Corpuscular Hemoglobin 30.6 pg (25-34); Mean Corpuscular Hgb Conc 33.5 g/dL (32-36); Mean Corpuscular Volume 91.4 fL (80-100); Mean Platelet Volume 10.4 fL (7.4-10.4); Monocytes # (auto) 0.84 K/uL (0.11-0.59); Monocytes % (auto) 8.3 %; Neutrophils # (auto) 8.04 K/uL (1.4-6.5); Neutrophils % (auto) 79.2 %; Platelet Count 224 K/uL (130-400); RDW Coefficient of Variation 13.4 % (11.5-14.5); RDW Standard Deviation 44.9 fL (36.4-46.3); Red Blood Count 4.28 M/uL (4.2-5.4); White Blood Count 10.15 K/uL (4.8-10.8)
[2022-01-20] MEDS: oxyCODONE/ACETAMINOPHEN 5mg/325mg TAB PO PRN ×4 (07:41→23:20)
[2022-01-20] MEDS: CHOLECALCIFEROL 1,000 UNITS 25 MCG TAB PO SCH (07:42)
[2022-01-20] MEDS: amLODIPine BESYLATE 5 MG TAB PO SCH ×3 (07:42→12:33)
[2022-01-20] MEDS ORDERED: Nursing to Pharmacy Communication SCH (07:45)
[2022-01-20] MEDS ORDERED: DOCUSATE SODIUM 100 MG CAP PO ONE (09:11)
--- NOTE | 2022-01-20 09:41 | Surgery Progress Note ---
Date of Service January 20, 2022 Assessment & Plan (1) Acute appendicitis: Plan: Postop day #1 status post laparoscopic appendectomy for perforated appendicitis Afebrile, vital signs stable postop pain better controlled AMARI drain with serosanguineous output No nausea no vomiting Rash of forehead and back resolved Plan: Continue pain management as needed, p.o. Percocet and p.o. Tylenol as needed Continue clear liquids Continue IV fluids, decrease rate to 50 cc/hr Continue IV Cipro and IV Flagyl Continue AMARI drain to bulb suction Encourage out of bed to chair and ambulation with better pain management Repeat a.m. labs We will add daily Colace Possibly home tomorrow with 7-day course of oral antibiotics Dr. Hernandes has seen patient and agrees with above Admission and Anticipated Discharge Date Admission Date: January 19, 2022 Subjective feeling better today No nausea, vomiting pain controlled, took Percocet this am, helped with headache rash and sensation of burning skin on forehead and back have resolved urinating without difficulty tolerating clear liquids Physical Exam Constitutional: WD/WN, vitals as above no acute distress and not ill appearing Neck: normal visual inspection and trachea midline Respiratory: normal respiratory effort; no respiratory distress, no labored breathing and no retractions Gastrointestinal (Abdomen): Inspection/Auscultation: abdomen normal to inspection, normal bowel sounds, + abdominal surgical incision (covered with clean,dry,intact dressings) and + abdominal surgical drain present (serosangu ineous); abdomen not distended Percussion/Palpation: + abdomen tender (at incision sites and drain site) and abdomen soft; no guarding and abdomen not rigid Skin: no rashes, warm and dry Psychiatric: A+Ox3, euthymic affect Results & Data ([facility]) Vital Signs (Past 12 Hours) Vital Signs Temp Pulse Resp BP Pulse Ox 01/20/22 07:24 37.6 C H 87 16 132/69 90 Laboratory Results 01/20/22 01/20/22 Range/Units 05:42 05:42 WBC 10.15 (4.8-10.8) K/uL RBC 4.28 (4.2-5.4) M/uL Hgb 13.1 (12.0-16.0) g/dL Hct 39.1 (37-47) % MCV 91.4 (80-100) fL MCH 30.6 (25-34) pg MCHC 33.5 (32-36) g/dL RDW Std Deviation 44.9 (36.4-46.3) fL RDW Coeff of Abilio 13.4 (11.5-14.5) % Plt Count 224 (130-400) K/uL MPV 10.4 (7.4-10.4) fL Immature Gran % (Auto) 0.2 % Neut % (Auto) 79.2 % Lymph % (Auto) 11.7 % [place] % (Auto) 8.3 % Eos % (Auto) 0.4 % Baso % (Auto) 0.2 % Neut # (Auto) 8.04 H (1.4-6.5) K/uL Lymph # (Auto) 1.19 L (1.2-3.4) K/uL [place] # (Auto) 0.84 H (0.11-0.59) K/uL Eos # (Auto) 0.04 (0-0.5) K/uL Baso # (Auto) 0.02 (0-0.2) K/uL Immature Gran # (Auto) 0.02 (0.00-0.02) K/uL Sodium 139 (136-145) mmol/L Potassium 3.7 (3.5-5.1) mmol/L Chloride 106 (98-107) mmol/L Carbon Dioxide 27 (21-32) mmol/L Anion Gap 6 (3-11) BUN 11 (6-23) mg/dl Creatinine 0.66 (0.6-1.2) mg/dl Est Cr Clr Drug Dosing 83.5 ml/min Est GFR ( Amer) 105.9 ml/min Est GFR (Non-Af Amer) 91.4 ml/min BUN/Creatinine Ratio 16.7 (10-20) Glucose 139 H (70-99(Fasting)) mg/dl Calcium 8.5 (8.5-10.1) mg/dl Microbiology 01/18/22 23:39 Gram Stain - Final Abdomen Aerobic and Anaerobic Culture - Preliminary Gram negative bacilli Gram negative bacilli#2 (1) Acute appendicitis Acute appendicitis type: with localized peritonitis Appendicitis abscess presence: without abscess Appendicitis gangrene presence: without gangrene Appendicitis perforation presence: without perforation Qualified Code(s): K35.30 - Acute appendicitis with localized peritonitis, without perforation or gangrene
[2022-01-21] MEDS: CIPROFLOXACIN / D5W 400 MG/200 ML BAG IV SCH (04:14)
[2022-01-21] MEDS: LEVOTHYROXINE SODIUM 100 MCG TABLET PO SCH (05:54)
[2022-01-21] MEDS: LACTATED RINGER'S 1,000 ML IV SCH (05:56)
[2022-01-21 06:18] LABS: Basophils # (auto) 0.02 K/uL (0-0.2); Basophils % (auto) 0.2 %; Eosinophils % (auto) 2.3 %; Hemoglobin 12.2 g/dL (12.0-16.0); Immature Granulocytes # (auto) 0.02 K/uL (0.00-0.02); Immature Granulocytes % (auto) 0.2 %; Lymphocytes % (auto) 14.8 %; Mean Corpuscular Hemoglobin 29.7 pg (25-34); Mean Corpuscular Hgb Conc 32.1 g/dL (32-36); Mean Corpuscular Volume 92.5 fL (80-100); Mean Platelet Volume 10.4 fL (7.4-10.4); Monocytes # (auto) 0.73 K/uL (0.11-0.59); Monocytes % (auto) 8.3 %; Neutrophils # (auto) 6.49 K/uL (1.4-6.5); Neutrophils % (auto) 74.2 %; Platelet Count 229 K/uL (130-400); RDW Coefficient of Variation 13.3 % (11.5-14.5); RDW Standard Deviation 44.6 fL (36.4-46.3); Red Blood Count 4.11 M/uL (4.2-5.4); White Blood Count 8.76 K/uL (4.8-10.8)
[2022-01-21 06:47] LABS: BUN Creatinine Ratio 9.7 (10-20); Calcium 8.1 mg/dl (8.5-10.1); Creatinine Clr Calc Pharmacy 76.6 ml/min; Est GFR (African American) 100.4 ml/min; Est GFR (Non-African American) 86.7 ml/min; Potassium 3.5 mmol/L (3.5-5.1)
[2022-01-21] MEDS ORDERED: DOCUSATE SODIUM 100 MG CAP PO SCH (09:00)
[2022-01-21] MEDS: metroNIDAZOLE 500 MG/100 ML BAG IV SCH (09:11)
[2022-01-21] MEDS: CHOLECALCIFEROL 1,000 UNITS 25 MCG TAB PO SCH (09:12)
--- NOTE | 2022-01-21 10:20 | Discharge Summary ---
Date of Service January 21, 2022 Admission HPI Per Admitting Provider t is a 66 year-old female who presents to ER with one day history epigastric pain with nausea, and chills, later on the pain is located at RLQ area, the pain is 7/10, last BM yesterday, pt denies chest pain, no diarrhea, no cough, no dysuria, pt had CT scan done at ER - diagnosis- acute appendicitis, I got a call for consult acute appendicitis, Principal Diagnosis Acute Perforated appendicitis Discharge Exam Constitutional WD/WN, vitals as above no acute distress and not ill appearing Neck normal visual inspection and trachea midline Respiratory normal respiratory effort; no respiratory distress, no labored breathing and no retractions Gastrointestinal (Abdomen) Inspection/Auscultation: abdomen normal to inspection, normal bowel sounds, + abdominal surgical incision (covered with clean,dry,intact dressings) and + abdominal surgical drain present (serosanguineous); abdomen not distended Percussion/Palpation: + abdomen tender (at incision sites and drain site) and abdomen soft; no guarding and abdomen not rigid Skin no rashes, warm and dry Psychiatric A+Ox3, euthymic affect Discharge Data Allergies Allergy/AdvReac Type Severity Reaction Status Date / Time ibuprofen Allergy Mild rash, hives Verified 01/18/22 20:13 Penicillins Allergy Mild rash, hives Verified 01/18/22 20:13 Sulfa (Sulfonamide Allergy Unknown rash, hives Verified 01/18/22 20:13 Antibiotics) aspirin Allergy Unknown Verified 01/18/22 20:13 Consultations 01/18/22 21:32 ED Decision to Admit Stat Procedures Performed Operation Date: 01/18/22 23:00 Actual Procedures p Laparoscopic Appendectomy - Maria Eugenia Hernandes MD Ordered Studies 01/18/22 20:03 CT abd pelvis IV con only Stat Hospital Course (1) Acute appendicitis: Patient was taken to the operating room for laparoscopic appendectomy by Dr. Hernandes. patient was found to have perforated appendicitis. She tolerated procedure well and was [facility]. She was started on IV Cefoxitin and Cipro. kept NPO. Alexander drain to bulb suction, scds for dvt prophylaxis. IV dilaudid as needed for pain and IV fluids. POD # 0 patient was evaluated and afebrile and vss. Her postop pain was moderate and not well controlled. She was having rash on forehead and back and feeling of forehead being hot. Mild nausea. No vomiting. Her diet was advanced to clear liquids for dinner and IV cefoxitin was discontinued given PCN allergy and possible crossreactivity. She was also given PO Claritin. Advised to ambulate and OOB to chair. POD # 1 , afebrile, vss. Pain better controlled and tolerated clear liquids without nausea or vomiting. Rash was gone. POD # 2 afebrile, vss. Pain minimal and controlled with PO Tylenol. Tolerated clear liquids. Ambulating and urinating without difficulty. Patient was discharged home on POD # 2.5 in stable condition with 7 day course of oral Cipro and Flagyl and pain medication as needed. Total Time Total Time Spent Total Time Spent (In Minutes): 1 hour Total Time Includes: Examination of the Patient, Discharge Planning and Medication Reconciliation Discharge Plan Discharge Items Patient Disposition: Home - Self-Care Reason For Visit: VOMITING, LOWER ABDOMINAL PAIN Discharge Diagnosis: Acute perforated appendicitis Activity: Per Instructions section Non-emergency contact: Surgeon Call non-emergency contact if: your pain is not controlled, your pain is worsening, your pain is concerning for you, you have a fever, your temperature is above 101, your wound has increased redness, your wound has increased drainage and your wound pain has increased Follow-up/Referrals: Chon Santillan DO [Primary Care Provider] - Maria Eguenia Hernandes MD [Physician] - 02/02/22 10:15 am Diet: Regular Addtl Attending Provider Instructions: Post-Surgical ~Discharge Instructions Activity Recommendations: - lifting limitation: (20 pounds for 4 weeks), - exercise/sex/sports limit: (nonstrenuous for 2 weeks), - driving or machine use limit: (none for 1 week, until pain free, and no longer taking narcotic pain medication), - Shower/bathe limit: (may shower beginning 01/22/2022) Diet: - Resume previous diet SPECIAL CARE INSTRUCTIONS: - May shower on 01/22/2022. Let water run over area and pat dry. - Leave steri strips on for one week and then remove. They may fall off on their own that is okay. - Surgical drain will be removed in office. Record output amount and color daily and bring record with you to your postop visit. - Call the surgeon's office with any questions or concerns - - (ex. temperature higher than 101 degrees F, excessive bleeding or pain). MEDICATIONS: - Resume previous medications unless instructed otherwise by your surgeon. - Can take extra strength Tylenol as needed for mild pain - 650 mg Tylenol every 6 hours as needed - Do not exceed 4,000 mg of Tylenol in a 24 hour period - Percocet 1 every 6 hours, as needed for moderate to severe pain - Percocet has 325 mg of Tylenol in each pill FOLLOW UP VISIT: - If not already scheduled, please call the office to schedule a one week follow-up appointment on Monday01/26/2022 for drain removal. Office number Pending Studies at Discharge: Yes (Appendix pathology, will be reviewed at follow-up visit) Stand-Alone Forms: [facility], Opioid Pain Management, Smoking Cessation Medications and DC Order Prescriptions: New ciprofloxacin HCl [Cipro] 500 mg tablet 500 mg PO BID Qty: 14 RF: 0 metronidazole 500 mg tablet 500 mg PO TID Qty: 21 RF: 0 oxycodone-acetaminophen 5-325 mg tablet 1 tab PO Q6H PRN (Reason: pain) Qty: 10 RF: 0 Continued amlodipine 5 mg tablet 5 mg PO DAILY RF: 0 levothyroxine 100 mcg tablet 100 mcg PO DAILY RF: 0 loratadine [Claritin] 10 mg Tablet 10 mg PO DAILY PRN (Reason: allergies) RF: 0 cholecalciferol (vitamin D3) [Vitamin D3] 25 mcg (1,000 unit) Tablet 0 mcg PO DAILY RF: 0 biotin 1 mg Capsule 0 mg PO DAILY RF: 0 Discharge Orders: Discharge Order (Routine); Ordered 01/21/22 Ordered By: Chanel Pool/Other Patient Handouts: What Is Appendicitis?, Surgery for Appendicitis Admission Data Admit Date/Time: 01/19/22 00:33 Attending Provider: Maria Eugenia Hernandes Admit Provider: Maria Eugenia Hernandes Primary Care Provider: Chon Santillan Other Providers: Maria Eugenia Hernandes Other Interventions: Discharge Summary Assessment (RN) Last Done: 01/21/22 11:59
[2022-01-21] MEDS: amLODIPine BESYLATE 5 MG TAB PO SCH (12:03)
== END 2022-01-21 14:53 | disposition home or self-care (01) ==
LOC: ED 17:34 → OR 23:08 → INTOOBSV 01-19 00:33 → 3E 01-19 00:33
DX: Z83.3 Family history of diabetes mellitus; I10 Essential (primary) hypertension; Z88.0 Allergy status to penicillin; R91.1 Solitary pulmonary nodule; E03.9 Hypothyroidism, unspecified; Z88.6 Allergy status to analgesic agent; Z88.2 Allergy status to sulfonamides; K35.32 Acute appendicitis with perforation, localized peritonitis, and gangrene, without abscess; K76.0 Fatty (change of) liver, not elsewhere classified; R73.03 Prediabetes

== ENCOUNTER 2022-02-08 09:59 | Inpatient (IN) ==
--- NOTE | 2022-02-08 11:04 | CT Scan Report ---
CT head/brain wo con CLINICAL HISTORY: 66 years-old Female with Stroke Alert. Acute strokelike symptoms TECHNIQUE: Multiple axial CT images of the head were obtained without contrast. A dose lowering tech nique was utilized adhering to the principles of ALARA. CT DOSE: 537.48 mGy.cm COMPARISON: None. FINDINGS: No acute intracranial hemorrhage, midline shift, intracranial mass, hydrocephalus, territorial ischem ia or abnormal extra-axial collection. Mild white matter hypodensities suggest chronic microvascular ischemic disease. The calvarium is intact. Postoperative changes of the paranasal sinuses. Mild mucosal thickening of the residual ethmoid air cells. Unremarkable soft tissues and orbits. IMPRESSION: No acute intracranial abnormality. ACT 112: Negative or not required by law. The above report was generated using voice recognition software. It may contain grammatical, syntax o r spelling errors. Electronically signed by: Lucius Walters M.D. 02/08/2022 11:02 AM
--- NOTE | 2022-02-08 11:05 | XRay Report ---
XR chest 2V PA/lateral CLINICAL HISTORY: stroke alert. Evaluate cardiopulmonary status COMPARISON STUDY: 04/18/2019 TECHNIQUE: 2 views of the chest FINDINGS: Frontal and lateral radiographs of the chest demonstrate the cardiomediastinal silhouette to be withi n normal limits. The lungs are clear of alveolar opacities. There is no evidence for effusion bilater ally. There is no evidence for vascular congestion. There is no acute osseous pathology. IMPRESSION: 1. No acute cardiopulmonary disease. ACT 112: Negative or not required by law. Electronically signed by: Erwin Koehler M.D. 02/08/2022 11:03 AM
[2022-02-08 11:18] LABS: Hematocrit (blood only) 44.3 % (37-47); Hemoglobin 14.7 g/dL (12.0-16.0); Mean Corpuscular Hemoglobin 29.8 pg (25-34); Mean Corpuscular Hgb Conc 33.2 g/dL (32-36); Mean Corpuscular Volume 89.9 fL (80-100); Mean Platelet Volume 10.3 fL (7.4-10.4); Platelet Count 381 K/uL (130-400); RDW Coefficient of Variation 12.8 % (11.5-14.5); RDW Standard Deviation 42.2 fL (36.4-46.3); Red Blood Count 4.93 M/uL (4.2-5.4); White Blood Count 6.37 K/uL (4.8-10.8)
[2022-02-08] MEDS ORDERED: SODIUM CHLORIDE 0.9% 1000ML 1,000 ML IV ONE (11:20)
--- NOTE | 2022-02-08 11:45 | Emergency Department Note ---
Impression & Plan Lacunar infarct, acute, Hypertension, Ambulatory dysfunction ED Provider Note NAME: EDILBERTO LEAL AGE: 66 SEX: F : 1955 ARRIVES VIA: Walk-In INFORMANT: Patient ED PROVIDER(S): Francisco Dougherty DO CHIEF COMPLAINT: Slow speech and dizzy HPI: Patient is a 66-year-old female who was recently admitted and diagnosed with ruptured appendicitis. She is on Flagyl but has since stopped. She notes this morning around 3 AM she noticed that she was Having trouble walking to the bathroom. She denies any headache or change in vision. She denies anything spi nning or feeling dizzy. No ringing in the ears. No weakness or numbness in arms or legs. No chest pain or shortness of breath. No nausea, vomiting, or diarrhea. She notes that she is talking slower than usual but has no slurred speech. The confirms all this. She also notes when she woke up her eyes were very heavy this morning. ROS: See above HPI for pertinent positives & negatives. A total of 10 systems reviewed and were otherwise negative. PAST MEDICAL HISTORY:See Below PAST SURGICAL HISTORY:See Below FAMILY HISTORY:See Below SOCIAL HISTORY:See Below HOME MEDICATIONS:See Below ALLERGIES:See Below VITALS:See Below PHYSICAL EXAMINATION: GENERAL: Sitting up in bed, alert, well appearing, well nourished, no distress, non-toxic EYE EXAM: normal conjunctiva. PERRL and EOM's intact. OROPHARYNX: no exudate, no erythema, lips, buccal mucosa, and tongue normal and mucous membranes are moist NECK: supple, no nuchal rigidity, no adenopathy, non-tender LUNGS: Clear to auscultation. Normal chest wall mechanics HEART: no murmurs, S1 normal and S2 normal ABDOMEN: abdomen soft, non-tender, normo-active bowel sounds, no masses, no rebound or guarding. BACK: Back is symmetrical on inspection and there is no deformity, no midline tenderness, no CVA tenderness. SKIN: no rashes and no bruising UPPER EXTREMITIES: upper extremities are grossly normal. LOWER EXTREMITIES: No pitting edema. NEURO EXAM: Normal sensorium, cranial nerves II-XII intact, normal speech, no weakness of arms, no weakness of legs. No drift. Finger to nose intact. Gross sensation intact.Rapid alternating movements of upper extremities intact. [id number] intact. MEDICAL DECISION MAKING: Patient is a 66-year-old female who presents the ER notes that she woke up this morning around 3 AM and was having trouble walking. She has no other complaints. On exam she is completely neurologically intact.Due to the protracted wait CTs were initially obtained and ordered by triage.IVs were established with orders obtained. Labs show no significant leukocytosis or anemia. INR unremarkable. BMP with slightly elevated glucose at 150. LFTs bilirubin were unremarkable. Troponins were negative. UA was clean. CT angios were then obtained and were unremarkable following my evaluation. She had no focal neuro deficit. NIH was 0. She was able to walk to the bathroom unas sisted. MR was then obtained and showed a CVA. Patient is allergic to aspirin and this was not given. Patient was updated bedside and discussed with the hospitalist for further evaluation.She was given a dose of Ativan as she was fairly anxious prior to MR.Again stroke alert was not called due to the NIH score and last known well time prior to going to bed last night. Triage Nursing notes reviewed. Limited review of prior medical records performed Vital Signs: reviewed and remarkable for no significant abnormalities Differential diagnosis: Differential diagnosis includes etiologies such as benign positional vertigo, dehydration, hypovolemia, anemia, tumor, infection, hypoglycemia, electrolyte abnormalities, cardiac sources, intracerebral event, toxicologic, neurological, as well as others were entertained. ER treatment provided: See below Diagnostics interpreted by me: ECG: Sinus rhythm rate 88 Normal axis No PVCs Nonspecific ST wave changes in the lateral leads QTC 445 No significant change from 2018 Cardiac Monitoring: An order was placed for continuous cardiac monitoring. The monitor shows a rate of 92 with sinus rhythm. Laboratory studies: As stated above and show below. Imaging studies: CT as well as CT angios the head and neck were negative MRI confirmed CVA Consultation(s): Discussed with hospitalist for further evaluation Procedures: none Critical Care: None Past Med/Surg History Medical History Arthritis Hypertension Hypothyroidism Prediabetes Rectocele Surgical History H/O oral surgery Tooth extraction History of tonsillectomy History of vaginal hysterectomy with anterior and posterior repair Family History Mother Lung cancer Hypothyroidism Father Diabetes Hypertension Sister Hypothyroidism Denies family history of Ovarian cancer Breast cancer Colorectal cancer Social History Smoking Status: Never smoker Second Hand Exposure: No; Hx Alcohol Use: Yes Alcohol type: wine Hx Substance Use: No Preferred Language: Divehi Communication Ability: Effective 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 Beliefs That Will Affect Care: None Current Living Situation: Spouse Current Living Situation Comment: Feels Safe at Home: Yes Assistive Devices: None Allergies Allergies Allergy/AdvReac Type Severity Reaction Status Date / Time ibuprofen Allergy Mild rash, hives Verified 02/08/22 13:15 Penicillins Allergy Mild rash, hives Verified 02/08/22 13:15 Sulfa (Sulfonamide Allergy Unknown rash, hives Verified 02/08/22 13:15 Antibiotics) aspirin Allergy Unknown Verified 02/08/22 13:15 Home Meds Home Medications Medication Instructions Recorded Confirmed amlodipine 5 mg tablet 5 mg PO QDL 02/25/20 02/08/22 biotin 1 mg capsule 0 mg PO HS 01/18/22 02/08/22 cholecalciferol (vitamin D3) 25 0 mcg PO QAM 01/18/22 02/08/22 mcg (1,000 unit) tablet (Vitamin D3) levothyroxine 100 mcg tablet 100 mcg PO DAILYBB 01/18/22 02/08/22 loratadine 10 mg tablet (Claritin) 10 mg PO DAILY PRN 01/18/22 02/08/22 Results & Data (ED) Vital Signs Vital Signs - 24 hr 02/08/22 10:10 02/08/22 11:01 02/08/22 11:17 Temperature 36.8 C Temperature Source Temporal Artery Scan Pulse Rate 101 H 94 H 92 H Pulse Rate [Apical] 98 H Pulse Rate from SpO2 Sensor 91 H Pulse Rhythm Regular Regular Pulse Rhythm [Apical] Regular Pulse Strength [Apical] Normal Respiratory Rate 17 18 17 Respiratory Effort / Characteristics Non-Labored Spontaneous Non-Labored Spontaneous Respiratory Depth Normal Normal Respiratory Pattern Regular Regular Blood Pressure 164/76 H 153/86 H Blood Pressure [Left Arm] 153/86 H Blood Pressure Mean 105 108 Blood Pressure Mean [Left Arm] 108 Blood Pressure Position Sitting Blood Pressure Position [Left Arm] Semi-fowlers Pulse Oximetry 98 98 97 Oxygen Delivery Method Room Air Room Air Sepsis Recent Fever Within 48 Hours No Sepsis New/Unexplained Change in Mental Status No Sepsis Action Taken by Nursing No Action Required 02/08/22 11:30 02/08/22 12:19 02/08/22 12:20 Temperature Temperature Source Pulse Rate 87 89 96 H Pulse Rate [Apical] Pulse Rate from SpO2 Sensor 93 H Pulse Rhythm Pulse Rhythm [Apical] Pulse Strength [Apical] Respiratory Rate 19 15 17 Respiratory Effort / Characteristics Respiratory Depth Respiratory Pattern Blood Pressure 167/80 H Blood Pressure [Left Arm] Blood Pressure Mean 109 Blood Pressure Mean [Left Arm] Blood Pressure Position Blood Pressure Position [Left Arm] Pulse Oximetry 96 Oxygen Delivery Method Room Air Room Air Room Air Sepsis Recent Fever Within 48 Hours Sepsis New/Unexplained Change in Mental Status Sepsis Action Taken by Nursing 02/08/22 12:41 02/08/22 13:00 02/08/22 13:01 Temperature Temperature Source Pulse Rate 108 H 93 H 92 H Pulse Rate [Apical] Pulse Rate from SpO2 Sensor 94 H 92 H Pulse Rhythm Pulse Rhythm [Apical] Pulse Strength [Apical] Respiratory Rate 6 L 17 21 Respiratory Effort / Characteristics Respiratory Depth Respiratory Pattern Blood Pressure 169/101 H Blood Pressure [Left Arm] Blood Pressure Mean 123 Blood Pressure Mean [Left Arm] Blood Pressure Position Blood Pressure Position [Left Arm] Pulse Oximetry 98 97 Oxygen Delivery Method Room Air Room Air Room Air Sepsis Recent Fever Within 48 Hours Sepsis New/Unexplained Change in Mental Status Sepsis Action Taken by Nursing 02/08/22 14:49 Temperature Temperature Source Pulse Rate Pulse Rate [Apical] 95 H Pulse Rate from SpO2 Sensor Pulse Rhythm Pulse Rhythm [Apical] Pulse Strength [Apical] Respiratory Rate 16 Respiratory Effort / Characteristics Non-Labored Spontaneous Respiratory Depth Normal Respiratory Pattern Regular Blood Pressure Blood Pressure [Left Arm] 155/102 H Blood Pressure Mean Blood Pressure Mean [Left Arm] 119 Blood Pressure Position Blood Pressure Position [Left Arm] Sitting Pulse Oximetry 97 Oxygen Delivery Method Room Air Sepsis Recent Fever Within 48 Hours Sepsis New/Unexplained Change in Mental Status Sepsis Action Taken by Nursing Laboratory Data Result diagrams: 02/08/22 11:07 02/08/22 11:07 Lab Results 02/08/22 02/08/22 02/08/22 Range/Units 11:07 11:07 11:07 WBC 6.37 (4.8-10.8) K/uL RBC 4.93 (4.2-5.4) M/uL Hgb 14.7 (12.0-16.0) g/dL Hct 44.3 (37-47) % MCV 89.9 (80-100) fL MCH 29.8 (25-34) pg MCHC 33.2 (32-36) g/dL RDW Std Deviation 42.2 (36.4-46.3) fL RDW Coeff of Abilio 12.8 (11.5-14.5) % Plt Count 381 (130-400) K/uL MPV 10.3 (7.4-10.4) fL PT 11.0 (9.0-12.0) Seconds INR 1.0 (0.9-1.1) APTT 26.3 (21.0-31.0) Seconds PTT Ratio 1.0 Sodium 139 (136-145) mmol/L Potassium 3.8 (3.5-5.1) mmol/L Chloride 105 (98-107) mmol/L Carbon Dioxide 24 (21-32) mmol/L Anion Gap 10 (3-11) BUN 17 (6-23) mg/dl Creatinine 0.75 (0.6-1.2) mg/dl Est Cr Clr Drug Dosing 79.1 ml/min Est GFR ( Amer) 95.6 ml/min Est GFR (Non-Af Amer) 82.5 ml/min BUN/Creatinine Ratio 22.7 H (10-20) Glucose 150 H (70-99(Fasting)) mg/dl Calcium 9.2 (8.5-10.1) mg/dl Magnesium 2.0 (1.7-2.4) mg/dl Total Bilirubin 0.5 (0.2-1.0) mg/dl AST 17 (13-39) U/L ALT 23 (7-52) U/L Alkaline Phosphatase 52 (34-104) U/L Troponin I High Sens (0-14) pg/ml Total Protein 7.5 (6.0-8.3) gm/dl Albumin 4.5 (3.4-5.0) gm/dl Globulin 3.0 (2.5-4.0) gm/dl Albumin/Globulin Ratio 1.5 (0.9-2) Urine Color Urine Appearance (Clear) Urine pH (4.5-7.5) Ur Specific [place] (1.000-1.030) Urine Protein (Negative) Urine Glucose (UA) (Negative) Urine Ketones (Negative) Urine Blood (Negative) Urine Nitrite (Negative) Urine Bilirubin (Negative) Urine Urobilinogen (Negative) Ur Leukocyte Esterase (Negative) 02/08/22 02/08/22 Range/Units 11:07 13:04 WBC (4.8-10.8) K/uL RBC (4.2-5.4) M/uL Hgb (12.0-16.0) g/dL Hct (37-47) % MCV (80-100) fL MCH (25-34) pg MCHC (32-36) g/dL RDW Std Deviation (36.4-46.3) fL RDW Coeff of Abilio (11.5-14.5) % Plt Count (130-400) K/uL MPV (7.4-10.4) fL PT (9.0-12.0) Seconds INR (0.9-1.1) APTT (21.0-31.0) Seconds PTT Ratio Sodium (136-145) mmol/L Potassium (3.5-5.1) mmol/L Chloride (98-107) mmol/L Carbon Dioxide (21-32) mmol/L Anion Gap (3-11) BUN (6-23) mg/dl Creatinine (0.6-1.2) mg/dl Est Cr Clr Drug Dosing ml/min Est GFR ( Amer) ml/min Est GFR (Non-Af Amer) ml/min BUN/Creatinine Ratio (10-20) Glucose (70-99(Fasting)) mg/dl Calcium (8.5-10.1) mg/dl Magnesium (1.7-2.4) mg/dl Total Bilirubin (0.2-1.0) mg/dl AST (13-39) U/L ALT (7-52) U/L Alkaline Phosphatase (34-104) U/L Troponin I High Sens 2.8 (0-14) pg/ml Total Protein (6.0-8.3) gm/dl Albumin (3.4-5.0) gm/dl Globulin (2.5-4.0) gm/dl Albumin/Globulin Ratio (0.9-2) Urine Color Yellow Urine Appearance Clear (Clear) Urine pH 6.5 (4.5-7.5) Ur Specific [place] 1.039 H (1.000-1.030) Urine Protein Negative (Negative) Urine Glucose (UA) Negative (Negative) Urine Ketones Trace H (Negative) Urine Blood Negative (Negative) Urine Nitrite Negative (Negative) Urine Bilirubin Negative (Negative) Urine Urobilinogen Negative (Negative) Ur Leukocyte Esterase Negative (Negative) Administered Medications Discontinued Medications Atorvastatin Calcium (Atorvastatin 40 Mg Tab) 80 mg PO QAM STA Stop: 02/08/22 15:17 Last Admin: 02/08/22 16:15 Dose: 80 mg Documented by: [id number] Clopidogrel Bisulfate (Clopidogrel Bisulfate 75 Mg Tab) 75 mg PO QAM STA Stop: 02/08/22 15:17 Last Admin: 02/08/22 16:15 Dose: 75 mg Documented by: [id number] Sodium Chloride (Nss 1000ml) 1,000 mls @ 999 mls/hr IV .Q1H1M ONE Stop: 02/08/22 12:20 Last Infusion: 02/08/22 12:34 Dose: 0 mls/hr Documented by: [id number] Admin: 02/08/22 11:29 Dose: 999 mls/hr Documented by: [id number] Ioversol (Optiray 320 125ml) 121 ml IV ONCE ONE Stop: 02/08/22 12:35 Last Admin: 02/08/22 12:36 Dose: 121 ml Documented by: [id number] Lorazepam (Lorazepam 2 Mg/1 Ml Vial) 0.5 mg IV NOW STA Stop: 02/08/22 12:57 Last Admin: 02/08/22 13:04 Dose: 0.5 mg Documented by: [id number] Lorazepam (Lorazepam 0.5 Mg Tab) 0.5 mg PO NOW STA Stop: 02/08/22 15:44 Last Admin: 02/08/22 16:15 Dose: 0.5 mg Documented by: [id number] Imaging Data Radiologist's Impression: Chest X-Ray 02/08/22 10:12 XR chest 2V PA/lateral CLINICAL HISTORY: stroke alert. Evaluate cardiopulmonary status COMPARISON STUDY: 04/18/2019 TECHNIQUE: 2 views of the chest FINDINGS: Frontal and lateral radiographs of the chest demonstrate the cardiomediastinal silhouette to be within normal limits. The lungs are clear of alveolar opacities. There is no evidence for effusion bilaterally. There is no evidence for vascular congestion. There is no acute osseous pathology. IMPRESSION: 1. No acute cardiopulmonary disease. ACT 112: Negative or not required by law. Electronically signed by: Erwin Koehler M.D. 02/08/2022 11:[address] 02/08/22 10:12 CT head/brain wo con CLINICAL HISTORY: 66 years-old Female with Stroke Alert. Acute strokelike symptoms TECHNIQUE: Multiple axial CT images of the head were obtained without contrast. A dose lowering technique was utilized adhering to the principles of ALARA. CT DOSE: 537.48 mGy.cm COMPARISON: None. FINDINGS: No acute intracranial hemorrhage, midline shift, intracranial mass, hydrocephalus, territorial ischemia or abnormal extra-axial collection. Mild white matter hypodensities suggest chronic microvascular ischemic disease. The calvarium is intact. Postoperative changes of the paranasal sinuses. Mild mucosal thickening of the residual ethmoid air cells. Unremarkable soft tissues and orbits. IMPRESSION: No acute intracranial abnormality. ACT 112: Negative or not required by law. The above report was generated using voice recognition software. It may contain grammatical, syntax or spelling errors. Electronically signed by: Lucius Walters M.D. 02/08/2022 11:02 AM Head CTA 02/08/22 11:42 CT ANGIOGRAM OF THE BRAIN; CT ANGIOGRAM OF THE NECK CLINICAL HISTORY: Dizziness. COMPARISON STUDY: Unenhanced CT of the brain dated 02/08/2022. TECHNIQUE: Following the IV administration of 121 of Optiray 320, CT angiogram of the head and neck was performed from the aortic arch to the vertex. Images are reviewed in the axial, sagittal, and coronal planes. 3-D MIPS images are created and assessed. IV contrast was administered without complication. All measurements were calculated based on NASCET criteria. A dose lowering technique was utilized adhering to the principles of ALARA. CT DOSE: 441.79 mGy.cm FINDINGS: Brain parenchyma: There is minimal microangiopathic change. There is no evidence of hemorrhage, mass effect, acute territorial ischemia noting angiographic phase technique. There is no evidence of enhancing mass lesion on the angiogram phase images. The ventricles, sulci, and cisterns are normal in configuration. Field- white matter differentiation is preserved. No extra-axial fluid collection is seen. Thoracic aorta: Visualized portions of the thoracic aorta are normal in caliber. The aortic arch demonstrates standard 3-vessel anatomy. Right carotid arterial system: The right common carotid artery is widely patent, as are the right internal and external carotid arteries. Minimal calcified plaque is noted in the carotid bulb. Left carotid arterial system: The left common carotid artery is widely patent, as are the left internal and external carotid arteries. Vertebral arteries: The vertebral arteries are widely patent bilaterally and codominant. Subclavian arteries: Widely patent bilaterally. Intracranial vasculature: There is atherosclerotic calcification of the cavernous carotid arteries. The internal carotid arteries are patent at the skull base, as are the anterior and middle cerebral arteries bilaterally. The vertebrobasilar system and posterior cerebral arteries are widely patent. The vertebral arteries are codominant. There is no aneurysm, high-grade stenosis, or focal vessel cut off seen throughout the intracranial circulation. Jugular veins: Patent bilaterally. Dural sinuses: Patent. Lung apices: Emphysematous change is noted at the lung apices. Upper lobe lung parenchyma is clear as visualized. Soft tissues: The visualized pharyngeal soft tissues are normal in appearance noting angiographic phase technique. The oropharyngeal airway appears widely patent. The salivary and thyroid glands are normal in appearance. No cervical lymphadenopathy is seen. Skeletal structures: The skeletal structures are osteopenic. The calvarium appears intact. The cervical spine is maintained noting multilevel spondylosis. No lytic or blastic lesion is identified. Orbits: The bony orbits are intact. Orbital contents are normal as visualized. Sinuses and mastoids: There is evidence of previous paranasal sinus surgery. Trace mucosal thickening is noted in the ethmoid cavity and the frontal sinuses. The remaining paranasal sinuses are clear. The mastoid air cells are well pneumatized. IMPRESSION: 1. There is no evidence of hemorrhage, mass effect, or acute territorial ischemia noting angiographic phase technique. 2. Unremarkable CT angiogram of the brain. 3. Unremarkable CT angiogram of the neck. 4. Emphysema. ACT 112: Negative or not required by law. Electronically signed by: Cory Cordova M.D. 02/08/2022 12:50 PM Neck CTA 02/08/22 11:42 CT ANGIOGRAM OF THE BRAIN; CT ANGIOGRAM OF THE NECK CLINICAL HISTORY: Dizziness. COMPARISON STUDY: Unenhanced CT of the brain dated 02/08/2022. TECHNIQUE: Following the IV administration of 121 of Optiray 320, CT angiogram of the head and neck was performed from the aortic arch to the vertex. Images are reviewed in the axial, sagittal, and coronal planes. 3-D MIPS images are created and assessed. IV contrast was administered without complication. All measurements were calculated based on NASCET criteria. A dose lowering technique was utilized adhering to the principles of ALARA. CT DOSE: 441.79 mGy.cm FINDINGS: Brain parenchyma: There is minimal microangiopathic change. There is no evidence of hemorrhage, mass effect, acute territorial ischemia noting angiographic phase technique. There is no evidence of enhancing mass lesion on the angiogram phase images. The ventricles, sulci, and cisterns are normal in configuration. Field- white matter differentiation is preserved. No extra-axial fluid collection is seen. Thoracic aorta: Visualized portions of the thoracic aorta are normal in caliber. The aortic arch demonstrates standard 3-vessel anatomy. Right carotid arterial system: The right common carotid artery is widely patent, as are the right internal and external carotid arteries. Minimal calcified plaque is noted in the carotid bulb. Left carotid arterial system: The left common carotid artery is widely patent, as are the left internal and external carotid arteries. Vertebral arteries: The vertebral arteries are widely patent bilaterally and codominant. Subclavian arteries: Widely patent bilaterally. Intracranial vasculature: There is atherosclerotic calcification of the cavernou s carotid arteries. The internal carotid arteries are patent at the skull base, as are the anterior and middle cerebral arteries bilaterally. The vertebrobasilar system and posterior cerebral arteries are widely patent. The vertebral arteries are codominant. There is no aneurysm, high-grade stenosis, or focal vessel cut off seen throughout the intracranial circulation. Jugular veins: Patent bilaterally. Dural sinuses: Patent. Lung apices: Emphysematous change is noted at the lung apices. Upper lobe lung parenchyma is clear as visualized. Soft tissues: The visualized pharyngeal soft tissues are normal in appearance noting angiographic phase technique. The oropharyngeal airway appears widely patent. The salivary and thyroid glands are normal in appearance. No cervical lymphadenopathy is seen. Skeletal structures: The skeletal structures are osteopenic. The calvarium appears intact. The cervical spine is maintained noting multilevel spondylosis. No lytic or blastic lesion is identified. Orbits: The bony orbits are intact. Orbital contents are normal as visualized. Sinuses and mastoids: There is evidence of previous paranasal sinus surgery. Trace mucosal thickening is noted in the ethmoid cavity and the frontal sinuses. The remaining paranasal sinuses are clear. The mastoid air cells are well pneumatized. IMPRESSION: 1. There is no evidence of hemorrhage, mass effect, or acute territorial ischemia noting angiographic phase technique. 2. Unremarkable CT angiogram of the brain. 3. Unremarkable CT angiogram of the neck. 4. Emphysema. ACT 112: Negative or not required by law. Electronically signed by: Cory Cordova M.D. 02/08/2022 12:50 PM Brain MRI 02/08/22 12:56 MRI OF THE BRAIN WITHOUT IV CONTRAST CLINICAL HISTORY: Loss of balance. COMPARISON STUDY: CT of the brain performed the same date 02/08/2022. TECHNIQUE: MRI of the brain was performed utilizing various T1 and T2-weighted sequences in the axial, sagittal, and coronal planes. IV contrast was not administered for this examination. FINDINGS: Brain parenchyma: There is mild microangiopathic change. There is a 1.4 cm focus of faint restricted diffusion identified in the left aspect of the wilda on axial image #8. There is mild corresponding T1 and T2 signal abnormality at this site, this is consistent with acute to subacute lacunar infarct. No additional foci of restricted diffusion are identified typical for acute ischemia. There is no hemorrhage or mass effect. Field-white matter differentiation is preserved. No extra-axial fluid collection is seen. The cerebellar tonsils are normal in configuration. Ventricles, sulci, and cisterns: Normal in configuration. Pituitary and sella: Unremarkable. Intracranial vasculature: Normal flow voids are maintained at the skull base. Orbits: The bony orbits are grossly intact. Orbital contents are normal in appearance. Sinuses and mastoids: There is evidence of previous paranasal sinus surgery. Mild mucosal thickening is noted within the frontal and ethmoid sinuses. The mastoid air cells are clear. Calvarium: Unremarkable. Cervical cord: Partially visualized cervical spinal cord is normal in morphology and signal intensity. IMPRESSION: 1. There is a 1.4 cm acute to subacute lacunar infarct identified in the left aspect of the wilda. 2. No additional foci of acute ischemia are identified. 3. There is no hemorrhage or mass effect.. ACT 112: Negative or not required by law. Electronically signed by: Cory Cordova M.D. 02/08/2022 2:34 PM Discharge Plan Visit Data Chief Complaint: Confusion Stated Complaint: DIFFICULTY WALKING AND TALKING ED Provider: Francisco Dougherty Discharge Problem: Lacunar infarct, acute, Hypertension, Ambulatory dysfunction Forms Stand Alone Forms: My [facility] Prescriptions Prescriptions: No Action amlodipine 5 mg tablet 5 mg PO QDL RF: 0 levothyroxine 100 mcg tablet 100 mcg PO DAILYBB RF: 0 loratadine [Claritin] 10 mg Tablet 10 mg PO DAILY PRN (Reason: allergies) RF: 0 cholecalciferol (vitamin D3) [Vitamin D3] 25 mcg (1,000 unit) Tablet 0 mcg PO QAM RF: 0 biotin 1 mg Capsule 0 mg PO HS RF: 0 Referrals Referrals: Laura Elizalde MD [Primary Care Provider] -
[2022-02-08 11:46] LABS: Partial Thromboplastin Time 26.3 Seconds (21.0-31.0)
[2022-02-08 11:48] LABS: Albumin Globulin Ratio 1.5 (0.9-2); Albumin Level 4.5 gm/dl (3.4-5.0); BUN Creatinine Ratio 22.7 (10-20); Bilirubin,Total 0.5 mg/dl (0.2-1.0); Calcium 9.2 mg/dl (8.5-10.1); Creatinine Clr Calc Pharmacy 79.1 ml/min; Est GFR (African American) 95.6 ml/min; Est GFR (Non-African American) 82.5 ml/min; Potassium 3.8 mmol/L (3.5-5.1); Total Protein 7.5 gm/dl (6.0-8.3)
[2022-02-08] MEDS ORDERED: OPTIRAY 320 125ml IV ONE (12:34)
--- NOTE | 2022-02-08 12:53 | CT Scan Report ---
CT ANGIOGRAM OF THE BRAIN; CT ANGIOGRAM OF THE NECK CLINICAL HISTORY: Dizziness. COMPARISON STUDY: Unenhanced CT of the brain dated 02/08/2022. TECHNIQUE: Following the IV administration of 121 of Optiray 320, CT angiogram of the head and neck w as performed from the aortic arch to the vertex. Images are reviewed in the axial, sagittal, and norma nal planes. 3-D MIPS images are created and assessed. IV contrast was administered without complicati on. All measurements were calculated based on NASCET criteria. A dose lowering technique was utilize d adhering to the principles of ALARA. CT DOSE: 441.79 mGy.cm FINDINGS: Brain parenchyma: There is minimal microangiopathic change. There is no evidence of hemorrhage, mass effect, acute territorial ischemia noting angiographic phase technique. There is no evidence of enhan cing mass lesion on the angiogram phase images. The ventricles, sulci, and cisterns are normal in con figuration. Field-white matter differentiation is preserved. No extra-axial fluid collection is seen. Thoracic aorta: Visualized portions of the thoracic aorta are normal in caliber. The aortic arch demo nstrates standard 3-vessel anatomy. Right carotid arterial system: The right common carotid artery is widely patent, as are the right int ernal and external carotid arteries. Minimal calcified plaque is noted in the carotid bulb. Left carotid arterial system: The left common carotid artery is widely patent, as are the left software development intern al and external carotid arteries. Vertebral arteries: The vertebral arteries are widely patent bilaterally and codominant. Subclavian arteries: Widely patent bilaterally. Intracranial vasculature: There is atherosclerotic calcification of the cavernous carotid arteries. T he internal carotid arteries are patent at the skull base, as are the anterior and middle cerebral ar teries bilaterally. The vertebrobasilar system and posterior cerebral arteries are widely patent. The vertebral arteries are codominant. There is no aneurysm, high-grade stenosis, or focal vessel cut of f seen throughout the intracranial circulation. Jugular veins: Patent bilaterally. Dural sinuses: Patent. Lung apices: Emphysematous change is noted at the lung apices. Upper lobe lung parenchyma is clear as visualized. Soft tissues: The visualized pharyngeal soft tissues are normal in appearance noting angiographic pha se technique. The oropharyngeal airway appears widely patent. The salivary and thyroid glands are nor mal in appearance. No cervical lymphadenopathy is seen. Skeletal structures: The skeletal structures are osteopenic. The calvarium appears intact. The cervic al spine is maintained noting multilevel spondylosis. No lytic or blastic lesion is identified. Orbits: The bony orbits are intact. Orbital contents are normal as visualized. Sinuses and mastoids: There is evidence of previous paranasal sinus surgery. Trace mucosal thickening is noted in the ethmoid cavity and the frontal sinuses. The remaining paranasal sinuses are clear. T he mastoid air cells are well pneumatized. IMPRESSION: 1. There is no evidence of hemorrhage, mass effect, or acute territorial ischemia noting angiographic phase technique. 2. Unremarkable CT angiogram of the brain. 3. Unremarkable CT angiogram of the neck. 4. Emphysema. ACT 112: Negative or not required by law. Electronically signed by: Cory Cordova M.D. 02/08/2022 12:50 PM
[2022-02-08] MEDS ORDERED: LORazepam 2 MG/1 ML VIAL IV STA (12:56)
[2022-02-08 13:57] LABS: Appearance Urine Clear (Clear); Bilirubin Urine Negative (Negative); Blood Urine Negative (Negative); Color Urine Yellow; Glucose Urine UA Negative (Negative); Ketones Urine Trace (Negative); Leukocyte Esterase Urine Negative (Negative); Nitrite Urine Negative (Negative); Protein Urine Negative (Negative); Specific Gravity Urine 1.039 (1.000-1.030); Urobilinogen Urine Negative (Negative); pH Urine 6.5 (4.5-7.5)
--- NOTE | 2022-02-08 14:36 | Magnetic Resonance Report ---
MRI OF THE BRAIN WITHOUT IV CONTRAST CLINICAL HISTORY: Loss of balance. COMPARISON STUDY: CT of the brain performed the same date 02/08/2022. TECHNIQUE: MRI of the brain was performed utilizing various T1 and T2-weighted sequences in the axial , sagittal, and coronal planes. IV contrast was not administered for this examination. FINDINGS: Brain parenchyma: There is mild microangiopathic change. There is a 1.4 cm focus of faint restricted diffusion identified in the left aspect of the wilda on axial image #8. There is mild corresponding T1 and T2 signal abnormality at this site, this is consistent with acute to subacute lacunar infarct. N o additional foci of restricted diffusion are identified typical for acute ischemia. There is no hemo rrhage or mass effect. Field-white matter differentiation is preserved. No extra-axial fluid collectio n is seen. The cerebellar tonsils are normal in configuration. Ventricles, sulci, and cisterns: Normal in configuration. Pituitary and sella: Unremarkable. Intracranial vasculature: Normal flow voids are maintained at the skull base. Orbits: The bony orbits are grossly intact. Orbital contents are normal in appearance. Sinuses and mastoids: There is evidence of previous paranasal sinus surgery. Mild mucosal thickening is noted within the frontal and ethmoid sinuses. The mastoid air cells are clear. Calvarium: Unremarkable. Cervical cord: Partially visualized cervical spinal cord is normal in morphology and signal intensity . IMPRESSION: 1. There is a 1.4 cm acute to subacute lacunar infarct identified in the left aspect of the wilda. 2. No additional foci of acute ischemia are identified. 3. There is no hemorrhage or mass effect.. ACT 112: Negative or not required by law. Electronically signed by: Cory Cordova M.D. 02/08/2022 2:34 PM
--- NOTE | 2022-02-08 15:08 | History & Physical Report ---
Date of Service February 08, 2022 Assessment & Plan (1) Lacunar infarct, acute: Plan: -Admit to tele -MRI completed showing 1.4 cm lacunar infarct of the left aspect of the wilda, CT of the head and neck were negative -Neuro consulted - start on Plavix 75 mg, atorvastatin 80 mg daily -Pt reports allergy to aspirin, taking it many years ago, and reports hives, most likely for a headache, will use plavix instead -Stroke order set ordered -Check 2D echo with bubble study -Fall precautions, PT/OT ordered for complaints of balance issues (2) Hypothyroidism: Plan: - Cont levothyroxine (3) Hypertension: Plan: - Cont amlodipine (4) Prediabetes: Plan: - Check a1c and lipids with am labs - monitor glucose with am labs DVT ppx: - teds, plavix, CODE: FULL Dispo: From home, likely dc within 1-2 days History of Present Illness Chief Complaint: Off balance Primary Care Provider: Laura Elizalde MD This is a 66 yo F with PMhx of prediabetes, HLD, acquired hypothyroidism, HTN, fatty liver, recent laparoscopic appendectomy completed here at [facility] on 01/19/2022 secondary to rupture, who presented today with worsening difficulty with walking, feeling off balance, and slowing speech. She was found to have a 1.4 cm lacunar infarct left aspect of the wilda on MRI. Pt presents here with her , Reymundo at bedside. She notes that her symptoms started last night around 3 am because she felt her eyes were sore, and attempted to get up and walk but felt this was difficult to do. Since having cipro and flagyl during her last hospital stay she feels that she has had dry eyes, mouth and ears. She is very anxious about thinking there is a connection between these events. Last night after having difficulty walking at 3 AM, she went back to bed, and again upon getting up at 7 am she had difficulty walking again. She denies any falls, but reports that she needed to hold onto something to maintain her balance. She denies slurred speech but c/o slowed speech. She denies having drooping face, focal weakness, or other complaints. She has recently and intentionally lost 20 lbs in the past 3 months, as she was attempting to maintain a better glucose and cholesterol levels. She has been borderline to being on medications for such. She reports having allergy to aspirin from years ago, states that she gets hives, and that she was likely to give her headache back at that point in time. She is agreeable to taking Plavix. Pt reports feeling very anxious here in the hospital. Her at bedside attempts to console her. She is requesting a private room several times, but it was explained to her that we cannot guarantee those accommodations. In attempt to help her anxiety, will provide a small dose of ativan. Allergies Allergy/AdvReac Type Severity Reaction Status Date / Time ibuprofen Allergy Mild rash, hives Verified 02/08/22 13:15 Penicillins Allergy Mild rash, hives Verified 02/08/22 13:15 Sulfa (Sulfonamide Allergy Unknown rash, hives Verified 02/08/22 13:15 Antibiotics) aspirin Allergy Unknown Verified 02/08/22 13:15 Home Medications Medication Instructions Recorded Confirmed Type amlodipine 5 mg tablet 5 mg PO QDL 02/25/20 02/08/22 History biotin 1 mg capsule 0 mg PO HS 01/18/22 02/08/22 History cholecalciferol (vitamin D3) 25 0 mcg PO QAM 01/18/22 02/08/22 History mcg (1,000 unit) tablet (Vitamin D3) levothyroxine 100 mcg tablet 100 mcg PO DAILYBB 01/18/22 02/08/22 History loratadine 10 mg tablet (Claritin) 10 mg PO DAILY PRN 01/18/22 02/08/22 History Past Med/Surg History Medical History Arthritis Hypertension Hypothyroidism Prediabetes Rectocele Surgical History H/O oral surgery Tooth extraction History of tonsillectomy History of vaginal hysterectomy with anterior and posterior repair Family History Mother Lung cancer Hypothyroidism Father Diabetes Hypertension Sister Hypothyroidism Denies family history of Ovarian cancer Breast cancer Colorectal cancer Social History Smoking Status: Never smoker Second Hand Exposure: No; Hx Alcohol Use: Yes Alcohol type: wine Hx Substance Use: No Preferred Language: Yi Communication Ability: Effective Anesthesiology Technologist Required: No Beliefs That Will Affect Care: None Current Living Situation: Spouse Current Living Situation Comment: Feels Safe at Home: Yes Safety Concerns: Feels Safe At This Time Assistive Devices: Glasses Review of Systems Review of Systems: Constitutional: No fever, sweats or chills Eyes: No diplopia, no worsening or blurred vision ENT: normal hearing, no trouble swallowing Respiratory: No cough, sputum, dyspnea at rest or on exertion Cardiovascular: No chest pain, tightness or palpitations Abdomen: No pain, nausea, vomiting, diarrhea or constipation Musculoskeletal: No joint pain, calf pain, swelling Neurologic: As per HPI. No focal weakness or numbness/tingling, + balance problems Psychiatric: No anxiety or depression Skin: No rash or itch Physical Exam Physical Exam: General: awake, alert, no apparent distress Head: Normocephalic, atraumatic ENT: PERRL, EOMI, no pharyngeal exudate, mucous membranes moist Chest: Clear to auscultation, on room air, no adventitious breath sounds Cardiac: Regular rate and rhythm, no murmur, no JVD, normal peripheral pulses, good capillary refill Abdominal: NABS x 4 quadrants, soft, nondistended, nontender to palpation, no rebound or guarding Extremities: Normal inspection, no peripheral edema or erythema, calfs nontender to palpation Psych: Normal mood and affect Neuro: AAO x 3, strength intact bilaterally and rated 5/5, no motor deficits, speech is clear, CN II-XII intact, no asymmetry of the face, negative pronator drift, no peripheral sensory deficits Results & Data Results & Data ([facility]) Vital Signs (Past 12 Hours) Vital Signs Temp Pulse Pulse Resp BP BP Pulse Ox 02/08/22 14:49 95 H 16 155/102 H 97 02/08/22 13:01 92 H 21 169/101 H 97 02/08/22 13:00 93 H 17 98 02/08/22 12:41 108 H 6 L 02/08/22 12:20 96 H 17 167/80 H 96 02/08/22 12:19 89 15 02/08/22 11:30 87 19 02/08/22 11:17 92 H 17 153/86 H 97 02/08/22 11:01 94 H 98 H 18 153/86 H 98 02/08/22 10:10 36.8 C 101 H 17 164/76 H 98 Laboratory Results 02/08/22 02/08/22 02/08/22 13:04 11:07 11:07 WBC RBC Hgb Hct MCV MCH MCHC RDW Std Deviation RDW Coeff of Abilio Plt Count MPV PT INR APTT PTT Ratio Sodium 139 Potassium 3.8 Chloride 105 Carbon Dioxide 24 Anion Gap 10 BUN 17 Creatinine 0.75 Est Cr Clr Drug Dosing 79.1 Est GFR ( Amer) 95.6 Est GFR (Non-Af Amer) 82.5 BUN/Creatinine Ratio 22.7 H Glucose 150 H Calcium 9.2 Magnesium 2.0 Total Bilirubin 0.5 AST 17 ALT 23 Alkaline Phosphatase 52 Troponin I High Sens 2.8 Total Protein 7.5 Albumin 4.5 Globulin 3.0 Albumin/Globulin Ratio 1.5 Urine Color Yellow Urine Appearance Clear Urine pH 6.5 Ur Specific [place] 1.039 H Urine Protein Negative Urine Glucose (UA) Negative Urine Ketones Trace H Urine Blood Negative Urine Nitrite Negative Urine Bilirubin Negative Urine Urobilinogen Negative Ur Leukocyte Esterase Negative 02/08/22 02/08/22 11:07 11:07 WBC 6.37 RBC 4.93 Hgb 14.7 Hct 44.3 MCV 89.9 MCH 29.8 MCHC 33.2 RDW Std Deviation 42.2 RDW Coeff of Abilio 12.8 Plt Count 381 MPV 10.3 PT 11.0 INR 1.0 APTT 26.3 PTT Ratio 1.0 Sodium Potassium Chloride Carbon Dioxide Anion Gap BUN Creatinine Est Cr Clr Drug Dosing Est GFR ( Amer) Est GFR (Non-Af Amer) BUN/Creatinine Ratio Glucose Calcium Magnesium Total Bilirubin AST ALT Alkaline Phosphatase Troponin I High Sens Total Protein Albumin Globulin Albumin/Globulin Ratio Urine Color Urine Appearance Urine pH Ur Specific [place] Urine Protein Urine Glucose (UA) Urine Ketones Urine Blood Urine Nitrite Urine Bilirubin Urine Urobilinogen Ur Leukocyte Esterase Diagnostic Findings Chest X-Ray 02/08/22 10:12 XR chest 2V PA/lateral CLINICAL HISTORY: stroke alert. Evaluate cardiopulmonary status COMPARISON STUDY: 04/18/2019 TECHNIQUE: 2 views of the chest FINDINGS: Frontal and lateral radiographs of the chest demonstrate the cardiomediastinal silhouette to be within normal limits. The lungs are clear of alveolar opacit ies. There is no evidence for effusion bilaterally. There is no evidence for vascular congestion. There is no acute osseous pathology. IMPRESSION: 1. No acute cardiopulmonary disease. ACT 112: Negative or not required by law. Electronically signed by: Erwin Koehler M.D. 02/08/2022 11:[address] 02/08/22 10:12 CT head/brain wo con CLINICAL HISTORY: 66 years-old Female with Stroke Alert. Acute strokelike symptoms TECHNIQUE: Multiple axial CT images of the head were obtained without contrast. A dose lowering technique was utilized adhering to the principles of ALARA. CT DOSE: 537.48 mGy.cm COMPARISON: None. FINDINGS: No acute intracranial hemorrhage, midline shift, intracranial mass, hydrocephalus, territorial ischemia or abnormal extra-axial collection. Mild white matter hypodensities suggest chronic microvascular ischemic disease. The calvarium is intact. Postoperative changes of the paranasal sinuses. Mild mucosal thickening of the residual ethmoid air cells. Unremarkable soft tissues and orbits. IMPRESSION: No acute intracranial abnormality. ACT 112: Negative or not required by law. The above report was generated using voice recognition software. It may contain grammatical, syntax or spelling errors. Electronically signed by: Lucius Walters M.D. 02/08/2022 11:02 AM Head CTA 02/08/22 11:42 CT ANGIOGRAM OF THE BRAIN; CT ANGIOGRAM OF THE NECK CLINICAL HISTORY: Dizziness. COMPARISON STUDY: Unenhanced CT of the brain dated 02/08/2022. TECHNIQUE: Following the IV administration of 121 of Optiray 320, CT angiogram of the head and neck was performed from the aortic arch to the vertex. Images are reviewed in the axial, sagittal, and coronal planes. 3-D MIPS images are created and assessed. IV contrast was administered without complication. All measurements were calculated based on NASCET criteria. A dose lowering technique was utilized adhering to the principles of ALARA. CT DOSE: 441.79 mGy.cm FINDINGS: Brain parenchyma: There is minimal microangiopathic change. There is no evidence of hemorrhage, mass effect, acute territorial ischemia noting angiographic phase technique. There is no evidence of enhancing mass lesion on the angiogram phase images. The ventricles, sulci, and cisterns are normal in configuration. Field- white matter differentiation is preserved. No extra-axial fluid collection is seen. Thoracic aorta: Visualized portions of the thoracic aorta are normal in caliber. The aortic arch demonstrates standard 3-vessel anatomy. Right carotid arterial system: The right common carotid artery is widely patent, as are the right internal and external carotid arteries. Minimal calcified plaque is noted in the carotid bulb. Left carotid arterial system: The left common carotid artery is widely patent, as are the left internal and external carotid arteries. Vertebral arteries: The vertebral arteries are widely patent bilaterally and codominant. Subclavian arteries: Widely patent bilaterally. Intracranial vasculature: There is atherosclerotic calcification of the cavernous carotid arteries. The internal carotid arteries are patent at the skull base, as are the anterior and middle cerebral arteries bilaterally. The vertebrobasilar system and posterior cerebral arteries are widely patent. The vertebral arteries are codominant. There is no aneurysm, high-grade stenosis, or focal vessel cut off seen throughout the intracranial circulation. Jugular veins: Patent bilaterally. Dural sinuses: Patent. Lung apices: Emphysematous change is noted at the lung apices. Upper lobe lung parenchyma is clear as visualized. Soft tissues: The visualized pharyngeal soft tissues are normal in appearance noting angiographic phase technique. The oropharyngeal airway appears widely patent. The salivary and thyroid glands are normal in appearance. No cervical lymphadenopathy is seen. Skeletal structures: The skeletal structures are osteopenic. The calvarium appears intact. The cervical spine is maintained noting multilevel spondylosis. No lytic or blastic lesion is identified. Orbits: The bony orbits are intact. Orbital contents are normal as visualized. Sinuses and mastoids: There is evidence of previous paranasal sinus surgery. Trace mucosal thickening is noted in the ethmoid cavity and the frontal sinuses. The remaining paranasal sinuses are clear. The mastoid air cells are well pneumatized. IMPRESSION: 1. There is no evidence of hemorrhage, mass effect, or acute territorial ischemia noting angiographic phase technique. 2. Unremarkable CT angiogram of the brain. 3. Unremarkable CT angiogram of the neck. 4. Emphysema. ACT 112: Negative or not required by law. Electronically signed by: Cory Cordova M.D. 02/08/2022 12:50 PM Neck CTA 02/08/22 11:42 CT ANGIOGRAM OF THE BRAIN; CT ANGIOGRAM OF THE NECK CLINICAL HISTORY: Dizziness. COMPARISON STUDY: Unenhanced CT of the brain dated 02/08/2022. TECHNIQUE: Following the IV administration of 121 of Optiray 320, CT angiogram of the head and neck was performed from the aortic arch to the vertex. Images are reviewed in the axial, sagittal, and coronal planes. 3-D MIPS images are created and assessed. IV contrast was administered without complication. All measurements were calculated based on NASCET criteria. A dose lowering technique was utilized adhering to the principles of ALARA. CT DOSE: 441.79 mGy.cm FINDINGS: Brain parenchyma: There is minimal microangiopathic change. There is no evidence of hemorrhage, mass effect, acute territorial ischemia noting angiographic phase technique. There is no evidence of enhancing mass lesion on the angiogram phase images. The ventricles, sulci, and cisterns are normal in configuration. Field- white matter differentiation is preserved. No extra-axial fluid collection is seen. Thoracic aorta: Visualized portions of the thoracic aorta are normal in caliber. The aortic arch demonstrates standard 3-vessel anatomy. Right carotid arterial system: The right common carotid artery is widely patent, as are the right internal and external carotid arteries. Minimal calcified plaque is noted in the carotid bulb. Left carotid arterial system: The left common carotid artery is widely patent, as are the left internal and external carotid arteries. Vertebral arteries: The vertebral arteries are widely patent bilaterally and codominant. Subclavian arteries: Widely patent bilaterally. Intracranial vasculature: There is atherosclerotic calcification of the cavernous carotid arteries. The internal carotid arteries are patent at the skull base, as are the anterior and middle cerebral arteries bilaterally. The vertebrobasilar system and posterior cerebral arteries are widely patent. The vertebral arteries are codominant. There is no aneurysm, high-grade stenosis, or focal vessel cut off seen throughout the intracranial circulation. Jugular veins: Patent bilaterally. Dural sinuses: Patent. Lung apices: Emphysematous change is noted at the lung apices. Upper lobe lung parenchyma is clear as visualized. Soft tissues: The visualized pharyngeal soft tissues are normal in appearance noting angiographic phase technique. The oropharyngeal airway appears widely patent. The salivary and thyroid glands are normal in appearance. No cervical lymphadenopathy is seen. Skeletal structures: The skeletal structures are osteopenic. The calvarium appears intact. The cervical spine is maintained noting multilevel spondylosis. No lytic or blastic lesion is identified. Orbits: The bony orbits are intact. Orbital contents are normal as visualized. Sinuses and mastoids: There is evidence of previous paranasal sinus surgery. Trace mucosal thickening is noted in the ethmoid cavity and the frontal sinuses. The remaining paranasal sinuses are clear. The mastoid air cells are well pneumatized. IMPRESSION: 1. There is no evidence of hemorrhage, mass effect, or acute territorial ischemia noting angiographic phase technique. 2. Unremarkable CT angiogram of the brain. 3. Unremarkable CT angiogram of the neck. 4. Emphysema. ACT 112: Negative or not required by law. Electronically signed by: Cory Cordova M.D. 02/08/2022 12:50 PM Brain MRI 02/08/22 12:56 MRI OF THE BRAIN WITHOUT IV CONTRAST CLINICAL HISTORY: Loss of balance. COMPARISON STUDY: CT of the brain performed the same date 02/08/2022. TECHNIQUE: MRI of the brain was performed utilizing various T1 and T2-weighted sequences in the axial, sagittal, and coronal planes. IV contrast was not administered for this examination. FINDINGS: Brain parenchyma: There is mild microangiopathic change. There is a 1.4 cm focus of faint restricted diffusion identified in the left aspect of the wilda on axial image #8. There is mild corresponding T1 and T2 signal abnormality at this site, this is consistent with acute to subacute lacunar infarct. No additional foci of restricted diffusion are identified typical for acute ischemia. There is no hemorrhage or mass effect. Field-white matter differentiation is preserved. No extra-axial fluid collection is seen. The cerebellar tonsils are normal in configuration. Ventricles, sulci, and cisterns: Normal in configuration. Pituitary and sella: Unremarkable. Intracranial vasculature: Normal flow voids are maintained at the skull base. Orbits: The bony orbits are grossly intact. Orbital contents are normal in appearance. Sinuses and mastoids: There is evidence of previous paranasal sinus surgery. Mild mucosal thickening is noted within the frontal and ethmoid sinuses. The mastoid air cells are clear. Calvarium: Unremarkable. Cervical cord: Partially visualized cervical spinal cord is normal in morphology and signal intensity. IMPRESSION: 1. There is a 1.4 cm acute to subacute lacunar infarct identified in the left aspect of the wilda. 2. No additional foci of acute ischemia are identified. 3. There is no hemorrhage or mass effect.. ACT 112: Negative or not required by law. Electronically signed by: Cory Cordova M.D. 02/08/2022 2:34 PM Code Status & VTE Plan Code Status Full code- discussed with pt and her at bedside. Supervising Physician Co-Signing Physician Notes Pt is a 66 y/o F with hx of hypothyroidism, HTN, HLD, and recent admission for perforated appendicitis s/p appendectomy admitted for acute to subacute lacunar infarct PE: NAD Lungs: CTA, no wheezing or crackles Cards: Normal S1/S2, no murmur Abd: ND, soft, NT Neuro: CN II-XII intact, normal motor strength, & sensation, EOMI, PERRLA Psych: anxious, AAOx3 A/P: Acute to subacute lacunar infarct -Normal neuro exam -VSS -Pt is allergic to aspirin (hives) therefore will do Plavix and statin -will get echo - Neurology consulted -PT/OT -will do bedside swallow and cardiac diet if pt passes Other chronic conditions: -continue home meds Agree with A/P by Honey Duenas PA-C
[2022-02-08] MEDS ORDERED: ATORVASTATIN 40 MG TAB PO STA (15:16)
[2022-02-08] MEDS ORDERED: CLOPIDOGREL BISULFATE 75 MG TAB PO STA (15:16)
--- NOTE | 2022-02-08 15:32 | Neurology Consultation ---
Date of Consultation February 08, 2022 Assessment & Plan (1) Lacunar infarct, acute: 1. MRI brain- left wilda infarct 2. CTA head/neck- unremarkable 3. start plavix 75 mg daily aspirin allergy 4. optimize HTN, HLD, LDL <70 5. PT/OT speech for discharge needs 6. TTE if not all ready done- with bubble study 7. ZIO as outpatient will follow up in 4-6 weeks with neurology Priya Lugo PAC (2) Hypertension: optimize Supervising Physician Co-Signing Physician Notes I have seen and discussed above patient with Dr Priya Dick, neurology. Patient seen and examined history reviewed. Sudden onset of the right hemiparesis with unsteadiness in the middle of the night last night. Several years ago she had an event where she briefly felt unsteady but was not vertigin ous and that resolved with sleep. She recently had an appendectomy but has not had ongoing fever. No head or neck trauma other medical or dental procedures. She has voluntarily lost about 20 pounds over the last several months. She has known hypertension. Apparently her blood sugar and cholesterol were borderline but she was working with diet to control. She does not smoke and there is no [facility] history of stroke Patient is awake and alert speech is intermittently dysarthric affect appropriate no carotid vertebral or supraclavicular bruits no heart murmurs neck is supple pupils are equal no papilledema normal medrano motility without nystagmus. Normal facial sensation. Mild flattening of the right nasolabial fold and the aforementioned dysarthria. Motor right upper and right lower about 4 out of 5 there is a right drift with decreased right rapid alternating movements. There is some mild clumsiness right [id number] and [id number]. Intact light touch and temperature bilaterally. Reflexes symmetric toes downgoing gait not tested Impression small vessel left pontine infarction. Permissive hypertension. Statin therapy. Echo with bubble study. ZIO as an outpatient. Patient is allergic to aspirin Plavix is recommended. Patient will need PT and OT evaluation and may need inpatient therapy. We will follow with you Priya Dick MD History of Present Illness Reason for Consultation: left wilda infarct Requesting Physician: Honey DE LEÓN History of Present Illness Priya is a 66 year old female with PMH of pre DM, HLD, acquired hypothyroidism, HTN, fatty liver, recent laparoscopic appendectomy completed here at [facility] on 01/19/2022 secondary to rupture, who presented today with worsening difficulty with walking, feeling off balance, and slowing speech. She was found to have a 1.4 cm lacunar infarct left aspect of the wilda on MRI. Her is in the room and thinks her speech is much improved. denies CP, SOB, abdominal pain, vision changes swallowing issues. denies any abnormal bleeding or family history of bleeding disorder. Allergies Allergy/AdvReac Type Severity Reaction Status Date / Time ibuprofen Allergy Mild rash, hives Verified 02/08/22 13:15 Penicillins Allergy Mild rash, hives Verified 02/08/22 13:15 Sulfa (Sulfonamide Allergy Unknown rash, hives Verified 02/08/22 13:15 Antibiotics) aspirin Allergy Unknown Verified 02/08/22 13:15 Home Medications Medication Instructions Recorded Confirmed Type amlodipine 5 mg tablet 5 mg PO QDL 02/25/20 02/08/22 History biotin 1 mg capsule 0 mg PO HS 01/18/22 02/08/22 History cholecalciferol (vitamin D3) 25 0 mcg PO QAM 01/18/22 02/08/22 History mcg (1,000 unit) tablet (Vitamin D3) levothyroxine 100 mcg tablet 100 mcg PO DAILYBB 01/18/22 02/08/22 History loratadine 10 mg tablet (Claritin) 10 mg PO DAILY PRN 01/18/22 02/08/22 History Patient History Medical History Arthritis Hypertension Hypothyroidism Prediabetes Rectocele Surgical History H/O oral surgery Tooth extraction History of tonsillectomy History of vaginal hysterectomy with anterior and posterior repair Family History Mother Lung cancer Hypothyroidism Father Diabetes Hypertension Sister Hypothyroidism Denies family history of Ovarian cancer Breast cancer Colorectal cancer Social History Smoking Status: Never smoker Second Hand Exposure: No; Hx Alcohol Use: Yes Alcohol type: wine Hx Substance Use: No Preferred Language: Hebrew Communication Ability: Effective 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: No Beliefs That Will Affect Care: None Current Living Situation: Spouse Current Living Situation Comment: Feels Safe at Home: Yes Assistive Devices: None Review of Systems Review of Systems: All systems reviewed & are unremarkable except as noted in HPI & below Physical Exam Physical Exam: Physical Exam: Constitutional: appearance nourished, healthy and normal Ears, Nose, Mouth and Throat: mucous membranes moist, no injection and skin normal, eyes normal Cardiovascular: normal S-1 and S-2 and regular rate and rhythm Respiratory: clear to auscultation (CTA) and no rales, ronchi or wheeze Musculoskeletal: no peripheral edema and good distal pulses Skin: no stigmata of neurocutaneous disease noted and normal and intact Eyes: extraocular muscles intact (EOMI) and pupils equal, round and reactive to light (PERRL) NEUROLOGIC EXAMINATION: Mental status: Alert and interactive Oriented to full date and location, names thumb pen -write with it, no ifs ands buts Oriented to person Speech dysarthric Cranial Nerves smile eye brow raise symmetric, flattening of nasolabial fold right Reflexes: Deep tendon reflexes were symmetrical and graded 2/5. down going toes Sensory: light cool touch intact Coordination: finger to nose dysmetric on right, clumsy on right with rapid hand movements Gait/Stance: Posture normal. Gait normal: with steady with steps, base, turning, heel and toe walking and tandem gait. Motor: right pronator drift Strength: hand cell changer biceps triceps, wrist flex ext, intrinsics right 4+/5, hip flex 4+/5. able to stand and support weight Results & Data ([facility]) Vital Signs (Past 12 Hours) Vital Signs Temp Pulse Pulse Resp BP BP Pulse Ox 02/08/22 14:49 95 H 16 155/102 H 97 02/08/22 13:01 92 H 21 169/101 H 97 02/08/22 13:00 93 H 17 98 02/08/22 12:41 108 H 6 L 02/08/22 12:20 96 H 17 167/80 H 96 02/08/22 12:19 89 15 02/08/22 11:30 87 19 02/08/22 11:17 92 H 17 153/86 H 97 02/08/22 11:01 94 H 98 H 18 153/86 H 98 02/08/22 10:10 36.8 C 101 H 17 164/76 H 98 Laboratory Results Abnormal lab results 02/08/22 02/08/22 Range/Units 11:07 13:04 BUN/Creatinine Ratio 22.7 H (10-20) Glucose 150 H (70-99(Fasting)) mg/dl Ur Specific [place] 1.039 H (1.000-1.030) Urine Ketones Trace H (Negative) Diagnostic Findings CT head-No acute intracranial abnormality. CTA head/neck-. There is no evidence of hemorrhage, mass effect, or acute territorial ischemia noting angiographic phase technique. Unremarkable CT angiogram of the brain. Unremarkable CT angiogram of the neck. Emphysema. MRI brain-there is a 1.4 cm acute to subacute lacunar infarct identified in the left aspect of the wilda. No additional foci of acute ischemia are identified. There is no hemorrhage or mass effect..
[2022-02-08] MEDS ORDERED: LORazepam 0.5 MG TAB PO STA (15:43)
[2022-02-08] MEDS ORDERED: PHARMACIST DISCHARGE MED REC CONSULT PRN (17:11)
[2022-02-08] MEDS ORDERED: ZOLPIDEM TARTRATE 5 MG TAB PO STA (22:44)
--- NOTE | 2022-02-09 05:54 | Electrocardiogram Report ---
Test Reason : Blood Pressure : / mmHG Vent. Rate : 088 BPM Atrial Rate : 088 BPM P-R Int : 150 ms QRS Dur : 076 ms QT Int : 368 ms P-R-T Axes : 047 009 034 degrees QTc Int : 445 ms Normal sinus rhythm Normal ECG When compared with ECG of 18-APR-2018 14:28, Premature supraventricular complexes are no longer Present Confirmed by Jose Jay ([id number]) on 02/09/2022 5:53:47 AM Referred By: REFERRED SELF Confirmed By:Jose Jay
[2022-02-09] MEDS: LEVOTHYROXINE SODIUM 100 MCG TABLET PO SCH (06:06)
[2022-02-09 07:07] LABS: BUN Creatinine Ratio 21.4 (10-20); Chol HDL Ratio 4.7 (0-5); Creatinine Clr Calc Pharmacy 81.6 ml/min; Est GFR (African American) 103.9 ml/min; Est GFR (Non-African American) 89.7 ml/min; Potassium 3.8 mmol/L (3.5-5.1)
[2022-02-09 07:13] LABS: Basophils # (auto) 0.04 K/uL (0-0.2); Basophils % (auto) 0.7 %; Eosinophils # (auto) 0.12 K/uL (0-0.5); Hemoglobin 13.5 g/dL (12.0-16.0); Lymphocytes # (auto) 1.87 K/uL (1.2-3.4); Lymphocytes % (auto) 30.4 %; Mean Corpuscular Hemoglobin 29.9 pg (25-34); Mean Corpuscular Hgb Conc 32.9 g/dL (32-36); Mean Corpuscular Volume 90.7 fL (80-100); Mean Platelet Volume 10.6 fL (7.4-10.4); Monocytes # (auto) 0.53 K/uL (0.11-0.59); Monocytes % (auto) 8.6 %; Neutrophils # (auto) 3.59 K/uL (1.4-6.5); Neutrophils % (auto) 58.3 %; Platelet Count 330 K/uL (130-400); RDW Coefficient of Variation 13.1 % (11.5-14.5); RDW Standard Deviation 43.1 fL (36.4-46.3); Red Blood Count 4.52 M/uL (4.2-5.4); White Blood Count 6.15 K/uL (4.8-10.8)
[2022-02-09 07:59] LABS: Estimated Average Glucose 131 mg/dl; Hemoglobin A1C 6.2 % (4.5-5.6)
[2022-02-09] MEDS: ATORVASTATIN 40 MG TAB PO SCH (08:48)
[2022-02-09] MEDS: CLOPIDOGREL BISULFATE 75 MG TAB PO SCH (08:48)
[2022-02-09] MEDS: amLODIPine BESYLATE 5 MG TAB PO SCH (09:08)
--- NOTE | 2022-02-09 10:41 | Hospitalist Progress Note ---
Date of Service February 09, 2022 Assessment & Plan (1) Lacunar infarct, acute: Plan: -Admitted to tele -MRI completed showing 1.4 cm lacunar infarct of the left aspect of the wilda, CT of the head and neck were negative -Neuro consulted - started on Plavix 75 mg, atorvastatin 80 mg daily -Pt reports allergy to aspirin, taking it many years ago, and reports hives, most likely for a headache, will use plavix instead -Stroke order set ordered -LDL 145, HbA1c 6.2 -echo with bubble study obtained - positive for PFO -Fall precautions, PT/OT ordered for complaints of balance issues - given PFO, will obtain dopplers of UAs and LEs (2) Hypothyroidism: Plan: - Cont levothyroxine (3) Hypertension: Plan: - Cont amlodipine (4) Prediabetes: Plan: - HbA1c 6.2%, LDL 145 - started on statin, further follow up w/ PCP DVT ppx: - teds, plavix, CODE: FULL Dispo: From home, likely dc tomorrow Admission and Anticipated Discharge Date Admission Date: February 08, 2022 Subjective Pt seen in follow up of CVA Currently sitting up in bed in [facility], family at the bedside Denies fever, chills, chest pain, shortness of breath. She has occasional CANELA. Pt feels improved from yesterday and is able to ambulate with a walker. Review of Systems Review of Systems: All systems reviewed & are unremarkable except as noted in Subjective Physical Exam Physical Exam: General: awake, alert, no apparent distress Head: Normocephalic, atraumatic ENT: PERRL, EOMI, mucous membranes moist Chest: Clear to auscultation, on room air, no adventitious breath sounds Cardiac: Regular rate and rhythm, no murmur, no JVD, normal peripheral pulses, good capillary refill Abdominal: NABS x 4 quadrants, soft, nondistended, nontender to palpation, no rebound or guarding Extremities: Normal inspection, no peripheral edema or erythema, calves nontender to palpation Psych: Normal mood and affect Neuro: AAO x 3, mild dysarthria, no significant facial asymmetry noted, able to ambulate with a walker Results & Data Results & Data ([facility]) Vital Signs (Past 12 Hours) Vital Signs Temp Pulse Pulse Resp BP Pulse Ox 02/09/22 08:03 37.0 C 81 19 115/61 93 02/09/22 08:00 82 02/09/22 02:27 36.6 C 80 16 146/76 H 95 02/08/22 23:26 36.8 C 82 16 145/58 H 94 Laboratory Results 02/09/22 02/09/22 02/09/22 Range/Units 05:53 05:53 05:53 WBC 6.15 (4.8-10.8) K/uL RBC 4.52 (4.2-5.4) M/uL Hgb 13.5 (12.0-16.0) g/dL Hct 41.0 (37-47) % MCV 90.7 (80-100) fL MCH 29.9 (25-34) pg MCHC 32.9 (32-36) g/dL RDW Std Deviation 43.1 (36.4-46.3) fL RDW Coeff of Abilio 13.1 (11.5-14.5) % Plt Count 330 (130-400) K/uL MPV 10.6 H (7.4-10.4) fL Immature Gran % (Auto) 0.0 % Neut % (Auto) 58.3 % Lymph % (Auto) 30.4 % [place] % (Auto) 8.6 % Eos % (Auto) 2.0 % Baso % (Auto) 0.7 % Neut # (Auto) 3.59 (1.4-6.5) K/uL Lymph # (Auto) 1.87 (1.2-3.4) K/uL [place] # (Auto) 0.53 (0.11-0.59) K/uL Eos # (Auto) 0.12 (0-0.5) K/uL Baso # (Auto) 0.04 (0-0.2) K/uL Immature Gran # (Auto) 0.00 (0.00-0.02) K/uL PT (9.0-12.0) Seconds INR (0.9-1.1) APTT (21.0-31.0) Seconds PTT Ratio Sodium 141 (136-145) mmol/L Potassium 3.8 (3.5-5.1) mmol/L Chloride 108 H (98-107) mmol/L Carbon Dioxide 24 (21-32) mmol/L Anion Gap 9 (3-11) BUN 15 (6-23) mg/dl Creatinine 0.70 (0.6-1.2) mg/dl Est Cr Clr Drug Dosing 81.6 ml/min Est GFR ( Amer) 103.9 ml/min Est GFR (Non-Af Amer) 89.7 ml/min BUN/Creatinine Ratio 21.4 H (10-20) Glucose 92 (70-99(Fasting)) mg/dl Estimat Average Glucose 131 mg/dl Hemoglobin A1c 6.2 H (4.5-5.6) % Calcium 9.0 (8.5-10.1) mg/dl Magnesium (1.7-2.4) mg/dl Total Bilirubin (0.2-1.0) mg/dl AST (13-39) U/L ALT (7-52) U/L Alkaline Phosphatase (34-104) U/L Troponin I High Sens (0-14) pg/ml Total Protein (6.0-8.3) gm/dl Albumin (3.4-5.0) gm/dl Globulin (2.5-4.0) gm/dl Albumin/Globulin Ratio (0.9-2) Triglycerides 103 (0-150) mg/dl Cholesterol 211 H (0-200) mg/dl LDL Cholesterol, Calc 145 mg/dl VLDL Cholesterol, Calc 21 (0-30) mg/dl HDL Cholesterol 45 mg/dl Cholesterol/HDL Ratio 4.7 (0-5) Urine Color Urine Appearance (Clear) Urine pH (4.5-7.5) Ur Specific [place] (1.000-1.030) Urine Protein (Negative) Urine Glucose (UA) (Negative) Urine Ketones (Negative) Urine Blood (Negative) Urine Nitrite (Negative) Urine Bilirubin (Negative) Urine Urobilinogen (Negative) Ur Leukocyte Esterase (Negative) 02/08/22 02/08/22 02/08/22 Range/Units 13:04 11:07 11:07 WBC (4.8-10.8) K/uL RBC (4.2-5.4) M/uL Hgb (12.0-16.0) g/dL Hct (37-47) % MCV (80-100) fL MCH (25-34) pg MCHC (32-36) g/dL RDW Std Deviation (36.4-46.3) fL RDW Coeff of Abilio (11.5-14.5) % Plt Count (130-400) K/uL MPV (7.4-10.4) fL Immature Gran % (Auto) % Neut % (Auto) % Lymph % (Auto) % [place] % (Auto) % Eos % (Auto) % Baso % (Auto) % Neut # (Auto) (1.4-6.5) K/uL Lymph # (Auto) (1.2-3.4) K/uL [place] # (Auto) (0.11-0.59) K/uL Eos # (Auto) (0-0.5) K/uL Baso # (Auto) (0-0.2) K/uL Immature Gran # (Auto) (0.00-0.02) K/uL PT (9.0-12.0) Seconds INR (0.9-1.1) APTT (21.0-31.0) Seconds PTT Ratio Sodium 139 (136-145) mmol/L Potassium 3.8 (3.5-5.1) mmol/L Chloride 105 (98-107) mmol/L Carbon Dioxide 24 (21-32) mmol/L Anion Gap 10 (3-11) BUN 17 (6-23) mg/dl Creatinine 0.75 (0.6-1.2) mg/dl Est Cr Clr Drug Dosing 79.1 ml/min Est GFR ( Amer) 95.6 ml/min Est GFR (Non-Af Amer) 82.5 ml/min BUN/Creatinine Ratio 22.7 H (10-20) Glucose 150 H (70-99(Fasting)) mg/dl Estimat Average Glucose mg/dl Hemoglobin A1c (4.5-5.6) % Calcium 9.2 (8.5-10.1) mg/dl Magnesium 2.0 (1.7-2.4) mg/dl Total Bilirubin 0.5 (0.2-1.0) mg/dl AST 17 (13-39) U/L ALT 23 (7-52) U/L Alkaline Phosphatase 52 (34-104) U/L Troponin I High Sens 2.8 (0-14) pg/ml Total Protein 7.5 (6.0-8.3) gm/dl Albumin 4.5 (3.4-5.0) gm/dl Globulin 3.0 (2.5-4.0) gm/dl Albumin/Globulin Ratio 1.5 (0.9-2) Triglycerides (0-150) mg/dl Cholesterol (0-200) mg/dl LDL Cholesterol, Calc mg/dl VLDL Cholesterol, Calc (0-30) mg/dl HDL Cholesterol mg/dl Cholesterol/HDL Ratio (0-5) Urine Color Yellow Urine Appearance Clear (Clear) Urine pH 6.5 (4.5-7.5) Ur Specific [place] 1.039 H (1.000-1.030) Urine Protein Negative (Negative) Urine Glucose (UA) Negative (Negative) Urine Ketones Trace H (Negative) Urine Blood Negative (Negative) Urine Nitrite Negative (Negative) Urine Bilirubin Negative (Negative) Urine Urobilinogen Negative (Negative) Ur Leukocyte Esterase Negative (Negative) 02/08/22 02/08/22 Range/Units 11:07 11:07 WBC 6.37 (4.8-10.8) K/uL RBC 4.93 (4.2-5.4) M/uL Hgb 14.7 (12.0-16.0) g/dL Hct 44.3 (37-47) % MCV 89.9 (80-100) fL MCH 29.8 (25-34) pg MCHC 33.2 (32-36) g/dL RDW Std Deviation 42.2 (36.4-46.3) fL RDW Coeff of Abilio 12.8 (11.5-14.5) % Plt Count 381 (130-400) K/uL MPV 10.3 (7.4-10.4) fL Immature Gran % (Auto) % Neut % (Auto) % Lymph % (Auto) % [place] % (Auto) % Eos % (Auto) % Baso % (Auto) % Neut # (Auto) (1.4-6.5) K/uL Lymph # (Auto) (1.2-3.4) K/uL [place] # (Auto) (0.11-0.59) K/uL Eos # (Auto) (0-0.5) K/uL Baso # (Auto) (0-0.2) K/uL Immature Gran # (Auto) (0.00-0.02) K/uL PT 11.0 (9.0-12.0) Seconds INR 1.0 (0.9-1.1) APTT 26.3 (21.0-31.0) Seconds PTT Ratio 1.0 Sodium (136-145) mmol/L Potassium (3.5-5.1) mmol/L Chloride (98-107) mmol/L Carbon Dioxide (21-32) mmol/L Anion Gap (3-11) BUN (6-23) mg/dl Creatinine (0.6-1.2) mg/dl Est Cr Clr Drug Dosing ml/min Est GFR ( Amer) ml/min Est GFR (Non-Af Amer) ml/min BUN/Creatinine Ratio (10-20) Glucose (70-99(Fasting)) mg/dl Estimat Average Glucose mg/dl Hemoglobin A1c (4.5-5.6) % Calcium (8.5-10.1) mg/dl Magnesium (1.7-2.4) mg/dl Total Bilirubin (0.2-1.0) mg/dl AST (13-39) U/L ALT (7-52) U/L Alkaline Phosphatase (34-104) U/L Troponin I High Sens (0-14) pg/ml Total Protein (6.0-8.3) gm/dl Albumin (3.4-5.0) gm/dl Globulin (2.5-4.0) gm/dl Albumin/Globulin Ratio (0.9-2) Triglycerides (0-150) mg/dl Cholesterol (0-200) mg/dl LDL Cholesterol, Calc mg/dl VLDL Cholesterol, Calc (0-30) mg/dl HDL Cholesterol mg/dl Cholesterol/HDL Ratio (0-5) Urine Color Urine Appearance (Clear) Urine pH (4.5-7.5) Ur Specific [place] (1.000-1.030) Urine Protein (Negative) Urine Glucose (UA) (Negative) Urine Ketones (Negative) Urine Blood (Negative) Urine Nitrite (Negative) Urine Bilirubin (Negative) Urine Urobilinogen (Negative) Ur Leukocyte Esterase (Negative) Medications Administered Current Inpatient Medications Amlodipine Besylate (Amlodipine Besylate 5 Mg Tab) 5 mg PO QDL BHANU Stop: 03/11/22 11:29 Last Admin: 02/09/22 09:08 Dose: Not Given Documented by: Atorvastatin Calcium (Atorvastatin 40 Mg Tab) [facility] Stop: 03/11/22 08:59 Last Admin: 02/09/22 08:48 Dose: 80 mg Documented by: Clopidogrel Bisulfate (Clopidogrel Bisulfate 75 Mg Tab) 75 mg [facility] Stop: 03/11/22 08:59 Last Admin: 02/09/22 08:48 Dose: 75 mg Documented by: Levothyroxine Sodium (Levothyroxine Sodium 100 Mcg Tablet) [facility] Stop: 03/11/22 06:29 Last Admin: 02/09/22 06:06 Dose: 100 mcg Documented by: Miscellaneous Information (Pharmacist Discharge Med Rec Consult) 1 ea N/A UD PRN PRN Reason: Consult Stop: 03/10/22 17:10 (1) Hypertension Hypertension type: unspecified Qualified Code(s): I10 - Essential (primary) hypertension
--- NOTE | 2022-02-09 13:51 | Neurology Progress Note ---
Date of Service February 09, 2022 Assessment & Plan (1) Lacunar infarct, acute: Plan: 1. MRI brain- left wilda infarct 2. CTA head/neck- unremarkable 3. start plavix 75 mg daily aspirin allergy 4. optimize HTN, HLD, LDL <70 5. PT/OT speech for discharge needs 6. TTE with bubble study- pending read 7. ZIO as outpatient ok to discharge once TTE is resulted will follow up in 4-6 weeks with neurology Priya DE LEÓN (2) Hypertension: Plan: optimize Admission and Anticipated Discharge Date Admission Date: February 08, 2022 Supervising Physician Co-Signing Physician Notes I have seen and discussed above patient with Dr Priya Dick, neurology. Patient seen and examined. Echo shows a small PFO which is of low risk with a right to left shunt. LDL was 145 and hemoglobin A1c 6.2. The patient is feeling improved. Exam notable for minimal F at all dysarthria. Marginal flattening of the right nasolabial fold. Normal extraocular motility. Right upper extremity 4+ right lower extremity for approximately 3+ to 4. There is a right drift with marginal decreased right rapid alternating movements [id number] is mildly clumsy as is rtew-[id number]-enge on the right both improved. Impression left pontine infarction likely related to small branch occlusion continue risk factor modification antiplatelet therapy with Plavix. Agree with statin therapy. Defer to primary care regarding need for treatment of elevated hemoglobin A1c of 6.2. Patient has a PFO with a right to left shunt. This is unlikely related to her stroke however prior to discharge I would recommend obtaining a venous ultrasound of the upper and lower extremities. Patient should see us post discharge. We will order a CO. Outpatient PT and OT recommended. Priya Matute Priya is a 66 year old female with PMH of pre DM, HLD, acquired hypothyroidism, HTN, fatty liver, recent laparoscopic appendectomy completed here at [facility] on 01/19/2022 secondary to rupture, who presented today with worsening difficulty with walking, feeling off balance, and slowing speech. She was found to have a 1.4 cm lacunar infarct left aspect of the wilda on MRI. She thinks her speech is much improved. She has been up and walking with physical therapy and doing well. She is using a walker but feels steady on her feet. She did say the TTE was done today. denies CP, SOB, abdominal pain, vision changes swallowing issues. denies any abnormal bleeding or family history of bleeding disorder. Review of Systems Review of Systems: All systems reviewed & are unremarkable except as noted in HPI & below Physical Exam Physical Exam: Physical Exam: Constitutional: appearance nourished, healthy and normal Ears, Nose, Mouth and Throat: mucous membranes moist, no injection and skin normal, eyes normal Cardiovascular: normal S-1 and S-2 and regular rate and rhythm Respiratory: clear to auscultation (CTA) and no rales, ronchi or wheeze Musculoskeletal: no peripheral edema and good distal pulses Skin: no stigmata of neurocutaneous disease noted and normal and intact Eyes: extraocular muscles intact (EOMI) and pupils equal, round and reactive to light (PERRL) NEUROLOGIC EXAMINATION: Mental status: Alert and interactive Oriented to full date and location Oriented to person Speech slight dysarthric Cranial Nerves smile eye brow raise symmetric, slight flattening of nasolabial fold right Reflexes: Deep tendon reflexes were symmetrical and graded 2/5. down going toes Sensory: light cool touch intact, and cool Coordination: finger to nose dysmetric on right, clumsy on right with rapid hand movements Gait/Stance: Posture normal. Gait normal: with steady tandem gait. 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 able to stand and support weight Results & Data ([facility]) Vital Signs (Past 12 Hours) Vital Signs Temp Pulse Pulse Resp BP Pulse Ox 02/09/22 08:03 37.0 C 81 19 115/61 93 02/09/22 08:00 82 02/09/22 02:27 36.6 C 80 16 146/76 H 95 Laboratory Results Abnormal lab results 02/08/22 02/09/22 02/09/22 Range/Units 13:04 05:53 05:53 MPV 10.6 H (7.4-10.4) fL Chloride 108 H (98-107) mmol/L BUN/Creatinine Ratio 21.4 H (10-20) Hemoglobin A1c (4.5-5.6) % Cholesterol 211 H (0-200) mg/dl Ur Specific [place] 1.039 H (1.000-1.030) Urine Ketones Trace H (Negative) 02/09/22 Range/Units 05:53 MPV (7.4-10.4) fL Chloride (98-107) mmol/L BUN/Creatinine Ratio (10-20) Hemoglobin A1c 6.2 H (4.5-5.6) % Cholesterol (0-200) mg/dl Ur Specific [place] (1.000-1.030) Urine Ketones (Negative) Diagnostic Findings TTE- not resulted (1) Hypertension Hypertension type: unspecified Qualified Code(s): I10 - Essential (primary) hypertension
[2022-02-10] MEDS: LEVOTHYROXINE SODIUM 100 MCG TABLET PO SCH (05:57)
[2022-02-10 06:03] LABS: Basophils # (auto) 0.05 K/uL (0-0.2); Basophils % (auto) 0.8 %; Eosinophils # (auto) 0.15 K/uL (0-0.5); Eosinophils % (auto) 2.3 %; Hematocrit (blood only) 42.2 % (37-47); Immature Granulocytes # (auto) 0.01 K/uL (0.00-0.02); Immature Granulocytes % (auto) 0.2 %; Lymphocytes # (auto) 2.12 K/uL (1.2-3.4); Lymphocytes % (auto) 33.1 %; Mean Corpuscular Hgb Conc 33.2 g/dL (32-36); Mean Corpuscular Volume 90.6 fL (80-100); Mean Platelet Volume 10.5 fL (7.4-10.4); Monocytes % (auto) 9.4 %; Neutrophils # (auto) 3.48 K/uL (1.4-6.5); Neutrophils % (auto) 54.2 %; Platelet Count 315 K/uL (130-400); RDW Standard Deviation 43.1 fL (36.4-46.3); Red Blood Count 4.66 M/uL (4.2-5.4); White Blood Count 6.41 K/uL (4.8-10.8)
[2022-02-10 06:25] LABS: BUN Creatinine Ratio 23.4 (10-20); Calcium 9.4 mg/dl (8.5-10.1); Creatinine Clr Calc Pharmacy 73.7 ml/min; Est GFR (African American) 92.6 ml/min; Est GFR (Non-African American) 79.9 ml/min; Potassium 4.1 mmol/L (3.5-5.1)
--- NOTE | 2022-02-10 06:34 | Ultrasound Report ---
BILATERAL LOWER EXTREMITY VENOUS DOPPLER HISTORY: Acute stroke like symptoms. Lower extremity swelling. cva w/ hx of pfo COMPARISON STUDY: None. FINDINGS: There is normal compressibility, flow, and augmentation within the bilateral lower extremit y deep venous systems. IMPRESSION: No DVT within the right or left lower extremity. ACT 112: Negative or not required by law. Electronically signed by: Lucius Walters M.D. 02/10/2022 6:32 AM
--- NOTE | 2022-02-10 07:09 | Ultrasound Report ---
BILATERAL UPPER EXTREMITY VENOUS DOPPLER HISTORY: Stroke w/ hx of pain foramen ovale. Assess for DVT COMPARISON STUDY: None. FINDINGS: The bilateral internal jugular veins are patent. There is normal flow within the bilateral subclavian veins. There is normal flow and compressibility within the bilateral axillary, basilic, br achial, radial, ulnar, and left cephalic veins. Nonocclusive thrombus identified within the distal ri ght cephalic vein superior to the patient's intravenous line. This measures approximately 4 cm in matthew gth. IMPRESSION: No DVT within the right upper extremity. Superficial thrombus identified within the right cephalic ve in. ACT 112: Negative or not required by law. Electronically signed by: Sohail Zhu M.D. 02/10/2022 7:07 AM
[2022-02-10] MEDS: ATORVASTATIN 40 MG TAB PO SCH (08:14)
[2022-02-10] MEDS: CLOPIDOGREL BISULFATE 75 MG TAB PO SCH (08:14)
[2022-02-10] MEDS ORDERED: LORATADINE 10 MG TAB PO ONE (11:00)
--- NOTE | 2022-02-10 11:02 | Hospitalist Progress Note ---
Date of Service February 10, 2022 Assessment & Plan (1) Lacunar infarct, acute: Plan: -Admitted to tele -MRI completed showing 1.4 cm lacunar infarct of the left aspect of the wilda, CT of the head and neck were negative -Neuro consulted - started on Plavix 75 mg, atorvastatin 80 mg daily -Pt reports allergy to aspirin, taking it many years ago, and reports hives, most likely for a headache, will use plavix instead -Stroke order set ordered -LDL 145, HbA1c 6.2 -echo with bubble study obtained - positive for PFO -Fall precautions, PT/OT ordered for complaints of balance issues - given PFO, obtained dopplers of UAs and LEs - no DVT in LEs, there is superficial thrombus in right cephalic vein, superior to IV line All results discussed with neurology, plan to discharge patient today (2) Hypothyroidism: Plan: - Cont levothyroxine (3) Hypertension: Plan: - Cont amlodipine (held initially d/t permissive hypertension) (4) Prediabetes: Plan: - HbA1c 6.2%, LDL 145 - started on statin, further follow up w/ PCP DVT ppx: - teds, plavix, CODE: FULL Dispo: Plan to DC home today. Prescription for rolling walker and PT evaluation treatment provided Admission and Anticipated Discharge Date Admission Date: February 08, 2022 Subjective Pt seen in follow up of CVA Currently sitting up in chair in NAD Pt is able to ambulate with a walker. Speech seems to be improved. Denies fever, chills, chest pain, shortness of breath. Review of Systems Review of Systems: All systems reviewed & are unremarkable except as noted in Subjective Physical Exam Physical Exam: General: awake, alert, no apparent distress Head: Normocephalic, atraumatic ENT: PERRL, EOMI, mucous membranes moist Chest: Clear to auscultation, on room air, no adventitious breath sounds Cardiac: Regular rate and rhythm, no murmur, no JVD, normal peripheral pulses, good capillary refill Abdominal: NABS x 4 quadrants, soft, nondistended, nontender to palpation, no rebound or guarding Extremities: Normal inspection, no peripheral edema or erythema, calves nontender to palpation Psych: Normal mood and affect Neuro: AAO x 3, mild dysarthria, no significant facial asymmetry noted, able to ambulate with a walker Results & Data Results & Data ([facility]) Vital Signs (Past 12 Hours) Vital Signs Temp Pulse Pulse Resp BP Pulse Ox 02/10/22 07:41 63 02/10/22 07:09 36.8 C 68 16 120/64 97 02/10/22 04:53 36.9 C 71 14 131/91 96 Laboratory Results 02/10/22 02/10/22 Range/Units 05:30 05:30 WBC 6.41 (4.8-10.8) K/uL RBC 4.66 (4.2-5.4) M/uL Hgb 14.0 (12.0-16.0) g/dL Hct 42.2 (37-47) % MCV 90.6 (80-100) fL MCH 30.0 (25-34) pg MCHC 33.2 (32-36) g/dL RDW Std Deviation 43.1 (36.4-46.3) fL RDW Coeff of Abilio 13.0 (11.5-14.5) % Plt Count 315 (130-400) K/uL MPV 10.5 H (7.4-10.4) fL Immature Gran % (Auto) 0.2 % Neut % (Auto) 54.2 % Lymph % (Auto) 33.1 % [place] % (Auto) 9.4 % Eos % (Auto) 2.3 % Baso % (Auto) 0.8 % Neut # (Auto) 3.48 (1.4-6.5) K/uL Lymph # (Auto) 2.12 (1.2-3.4) K/uL [place] # (Auto) 0.60 H (0.11-0.59) K/uL Eos # (Auto) 0.15 (0-0.5) K/uL Baso # (Auto) 0.05 (0-0.2) K/uL Immature Gran # (Auto) 0.01 (0.00-0.02) K/uL Sodium 141 (136-145) mmol/L Potassium 4.1 (3.5-5.1) mmol/L Chloride 108 H (98-107) mmol/L Carbon Dioxide 27 (21-32) mmol/L Anion Gap 6 (3-11) BUN 18 (6-23) mg/dl Creatinine 0.77 (0.6-1.2) mg/dl Est Cr Clr Drug Dosing 73.7 ml/min Est GFR ( Amer) 92.6 ml/min Est GFR (Non-Af Amer) 79.9 ml/min BUN/Creatinine Ratio 23.4 H (10-20) Glucose 92 (70-99(Fasting)) mg/dl Calcium 9.4 (8.5-10.1) mg/dl Medications Administered Current Inpatient Medications Amlodipine Besylate (Amlodipine Besylate 5 Mg Tab) 5 mg PO QDL [facility] Stop: 03/11/22 11:29 Last Admin: 02/09/22 09:08 Dose: Not Given Documented by: Atorvastatin Calcium (Atorvastatin 40 Mg Tab) 80 mg PO [facility] Stop: 03/11/22 08:59 Last Admin: 02/10/22 08:14 Dose: 80 mg Documented by: Clopidogrel Bisulfate (Clopidogrel Bisulfate 75 Mg Tab) 75 mg PO [facility] Stop: 03/11/22 08:59 Last Admin: 02/10/22 08:14 Dose: 75 mg Documented by: Levothyroxine Sodium (Levothyroxine Sodium 100 Mcg Tablet) [facility] Stop: 03/11/22 06:29 Last Admin: 02/10/22 05:57 Dose: 100 mcg Documented by: Loratadine (Loratadine 10 Mg Tab) 10 mg PO NOW ONE Stop: 02/10/22 11:01 Miscellaneous Information (Pharmacist Discharge Med Rec Consult) 1 ea N/A UD PRN PRN Reason: Consult Stop: 03/10/22 17:10 (1) Hypertension Hypertension type: unspecified Qualified Code(s): I10 - Essential (primary) hypertension
[2022-02-10] MEDS ORDERED: STROKE PATIENT DISCHARGE STA (11:12)
--- NOTE | 2022-02-10 11:13 | Discharge Summary ---
Date of Service February 10, 2022 Admission HPI Per Admitting Provider This is a 66 yo F with PMhx of prediabetes, HLD, acquired hypothyroidism, HTN, fatty liver, recent laparoscopic appendectomy completed here at [facility] on 01/19/2022 secondary to rupture, who presented today with worsening difficulty with walking, feeling off balance, and slowing speech. She was found to have a 1.4 cm lacunar infarct left aspect of the wilda on MRI. Pt presents here with her , Reymundo at bedside. She notes that her symptoms started last night around 3 am because she felt her eyes were sore, and attempted to get up and walk but felt this was difficult to do. Since having cipro and flagyl during her last hospital stay she feels that she has had dry eyes, mouth and ears. She is very anxious about thinking there is a connection between these events. Last night after having difficulty walking at 3 AM, she went back to bed, and again upon getting up at 7 am she had difficulty walking again. She denies any falls, but reports that she needed to hold onto something to maintain her balance. She denies slurred speech but c/o slowed speech. She denies having drooping face, focal weakness, or other complaints. She has recently and intentionally lost 20 lbs in the past 3 months, as she was attempting to maintain a better glucose and cholesterol levels. She has been borderline to being on medications for such. She reports having allergy to aspirin from years ago, states that she gets hives, and that she was likely to give her headache back at that point in time. She is agreeable to taking Plavix. Pt reports feeling very anxious here in the hospital. Her at bedside attempts to console her. She is requesting a private room several times, but it was explained to her that we cannot guarantee those accommodations. In attempt to help her anxiety, will provide a small dose of ativan. Admission Exam Per Admitting Provider General: awake, alert, no apparent distress Head: Normocephalic, atraumatic ENT: PERRL, EOMI, no pharyngeal exudate, mucous membranes moist Chest: Clear to auscultation, on room air, no adventitious breath sounds Cardiac: Regular rate and rhythm, no murmur, no JVD, normal peripheral pulses, good capillary refill Abdominal: NABS x 4 quadrants, soft, nondistended, nontender to palpation, no rebound or guarding Extremities: Normal inspection, no peripheral edema or erythema, calfs nontender to palpation Psych: Normal mood and affect Neuro: AAO x 3, strength intact bilaterally and rated 5/5, no motor deficits, speech is clear, CN II-XII intact, no asymmetry of the face, negative pronator drift, no peripheral sensory deficits Principal Diagnosis CVA Discharge Exam General: awake, alert, no apparent distress Head: Normocephalic, atraumatic ENT: PERRL, EOMI, mucous membranes moist Chest: Clear to auscultation, on room air, no adventitious breath sounds Cardiac: Regular rate and rhythm, no murmur, no JVD, normal peripheral pulses, good capillary refill Abdominal: NABS x 4 quadrants, soft, nondistended, nontender to palpation, no rebound or guarding Extremities: Normal inspection, no peripheral edema or erythema, calves nontender to palpation Psych: Normal mood and affect Neuro: AAO x 3, mild dysarthria, no significant facial asymmetry noted, able to ambulate with a walker Discharge Data Allergies Allergy/AdvReac Type Severity Reaction Status Date / Time ibuprofen Allergy Mild rash, hives Verified 02/08/22 13:15 Penicillins Allergy Mild rash, hives Verified 02/08/22 13:15 Sulfa (Sulfonamide Allergy Unknown rash, hives Verified 02/08/22 13:15 Antibiotics) aspirin Allergy Unknown Verified 02/08/22 13:15 Consultations 02/08/22 14:54 ED Decision to Admit Stat 02/08/22 17:11 Consult Neurology Routine Ordered Studies 02/08/22 10:12 CT head/brain wo con Stat 02/08/22 11:42 CT angio head w con Stat CT angio neck with con Stat 02/08/22 12:56 MR brain wo con Stat 02/09/22 17:18 US venous doppler LE BI Routine 02/09/22 17:19 US venous doppler UE BI Urgent Hospital Course (1) Lacunar infarct, acute: -Admitted to tele -MRI completed showing 1.4 cm lacunar infarct of the left aspect of the wilda, CT of the head and neck were negative -Neuro consulted - started on Plavix 75 mg, atorvastatin 80 mg daily -Pt reports allergy to aspirin, taking it many years ago, and reports hives, most likely for a headache, will use plavix instead -Stroke order set ordered -LDL 145, HbA1c 6.2 -echo with bubble study obtained - positive for PFO -Fall precautions, PT/OT ordered for complaints of balance issues - given PFO, obtained dopplers of UAs and LEs - no DVT in LEs, there is superficial thrombus in right cephalic vein, superior to IV line All results discussed with neurology, plan to discharge patient today (2) Hypothyroidism: - Cont levothyroxine (3) Hypertension: - Cont amlodipine (held initially d/t permissive hypertension) (4) Prediabetes: - HbA1c 6.2%, LDL 145 - started on statin, further follow up w/ PCP DVT ppx: - teds, plavix, CODE: FULL Dispo: Plan to DC home today. Prescription for rolling walker and PT evaluation treatment provided Total Time Total Time Spent Total Time Spent (In Minutes): 40 Discharge Plan Discharge Items Patient Disposition: Home - Self-Care Reason For Visit: CVA Discharge Diagnosis: CVA Activity: Per Instructions section Non-emergency contact: Primary Care Provider and Neurologist Call non-emergency contact if: you have any medication questions and your symptoms worsen Follow-up/Referrals: Priya Lugo PA-C [Physician Tag Stringer] - (Date & Time 03/11/2022 11:20 AM Provider Priya Lugo PA-C Department Neurology [facility] ) Chanel Winters PA-C [Physician Tag Stringer] - (Date & Time 03/01/2022 12:30 PM Provider Chanel Winters PA-C Department General Surgery, [facility] ) Laura Elizalde MD [Primary Care Provider] - (Date & Time 02/15/2022 10:20 AM Provider Laura Haq MD Department General Internal Medicine [facility] ) Diet: Heart Healthy Addtl Attending Provider Instructions: Follow-up with your primary care physician and neurologist. Start taking Plavix and atorvastatin daily as prescribed. Prescription for rolling walker and physical therapy evaluation and treatment provided. Pending Studies at Discharge: No Stand-Alone Forms: Medications to Prevent Stroke, [employer], Smoking Cessation Medications and DC Order Prescriptions: New clopidogrel 75 mg Tablet 75 mg PO QAM Qty: 30 RF: 0 atorvastatin 40 mg Tablet 80 mg PO QAM Qty: 60 RF: 0 Continued amlodipine 5 mg tablet 5 mg PO QDL RF: 0 levothyroxine 100 mcg tablet 100 mcg PO DAILYBB RF: 0 loratadine [Claritin] 10 mg Tablet 10 mg PO DAILY PRN (Reason: allergies) RF: 0 cholecalciferol (vitamin D3) [Vitamin D3] 25 mcg (1,000 unit) Tablet 0 mcg PO QAM RF: 0 biotin 1 mg Capsule 0 mg PO HS RF: 0 Discharge Orders: Discharge Order (Routine); Ordered 02/10/22 Ordered By: Zev Pool/Other Patient Handouts: Prediabetes, 5 Steps for Eating Healthier Admission Data Admit Date/Time: 02/08/22 15:41 Attending Provider: Zev Alberts Admit Provider: Misty Dent Primary Care Provider: Laura Elizalde Other Providers: Misty Dent ; Priya Dick Other Interventions: Discharge Summary Assessment (RN) Last Done: 02/10/22 11:26
--- NOTE | 2022-02-10 11:45 | Pharmacy Report ---
Pharmacist Stroke Counseling - Date of Service February 10, 2022 - Scope: Pharmacy has been consulted to provide medication discharge counseling for this patient admitted with ischemic stroke as per the Pharmacist Discharge Counseling for Stroke Patients Protocol. - Medications on Discharge: Home Medications Medication Instructions Recorded Confirmed amlodipine 5 mg tablet 5 mg PO QDL 02/25/20 02/08/22 biotin 1 mg capsule 0 mg PO HS 01/18/22 02/08/22 cholecalciferol (vitamin D3) 25 0 mcg PO QAM 01/18/22 02/08/22 mcg (1,000 unit) tablet (Vitamin D3) levothyroxine 100 mcg tablet 100 mcg PO DAILYBB 01/18/22 02/08/22 loratadine 10 mg tablet (Claritin) 10 mg PO DAILY PRN 01/18/22 02/08/22 New Rx's Medication Instructions Recorded atorvastatin 40 mg tablet 80 mg PO QAM #60 tab 02/10/22 clopidogrel 75 mg tablet 75 mg PO QAM #30 tab 02/10/22 - Action: The above medications, specifically ones for stroke treatment/prophylaxis, have been reviewed in detail with the patient and HER prior to discharge. This includes indication, common adverse reactions, drug interactions, and medication administration. Medication counseling has been employed using the t each-back method to ensure understanding. - Outcome: The patient and HER have demonstrated understanding of the medications. Additional comments: -ANSWERED ALL QUESTIONS -ASKED IF SHE COULD TAKE CLARITIN HAVING SOME ISSUES. I TOLD HER YES AND INFORMED HER OF S/S OF WORSENING ALLERGIC REACTIONS Thank you for allowing pharmacy to be involved in the care of this patient. Please call [phone] with any additional questions
[2022-02-10] MEDS: amLODIPine BESYLATE 5 MG TAB PO SCH (12:03)
== END 2022-02-10 12:44 | disposition home or self-care (01) | DRG 65 ==
LOC: ED 09:59 → SUATTDRO 15:41 → 2E 15:41

== ENCOUNTER 2025-02-25 07:46 | Inpatient (IN) ==
--- OUTSIDE RECORDS SUMMARY | 2025-02-25 07:58 | External Medical Summary | Continuity of Care Document ---
Author Name Unknown Organization [id number] Address [address] [place] [address] [id number] Care Team Providers Care Operations Professional Name Role Phone SvenChon hutton Marciano Primary Care Physician [phone] [id number] Date(s): 11/28/[facility] - [facility]/28/[facility] [address] [facility] [address] [facility] [address] [place] [id number] Encounter Diagnosis Right knee DJD(Discharge Diagnosis) - 11/28/24 Discharge Disposition: Home or Self Care Attending Physician: CRISTINO Corona, Nancy Allergies, Adverse Reactions, Alerts Substance Criticality Severity Reaction Reaction Severity Status ibuprofen hives Active penicillin hives Active sulfa drugs hives Active Medications amLODIPine 5 mg oral tablet Start: 02/28/20 10:49:00 AM EDT, 1 tab, PO, Daily Start Date: 02/28/20 Status: Ordered atorvastatin 80 mg oral tablet Start: 03/12/24 8:27:00 AM EDT, 90 each, 0 Refill(s), TAKE 1 TABLET BY MOUTH EVERY DAY IN THE MORNING Start Date: 03/12/24 Status: Ordered clopidogrel 75 mg oral tablet Start: 03/12/24 8:27:00 AM EDT, 90 each, 0 Refill(s), TAKE 1 TABLET BY MOUTH EVERY DAY IN THE MORNING Start Date: 03/12/24 Status: Ordered hydrocortisone 2.5% topical cream Start: 01/08/19 5:09:00 PM EDT, See Instructions, Disp# 20 g, Refills: 1, Apply in a thin film to the affected skin at the eyebrows once daily as needed, do NOT apply to eyelashes, Pharmacy: [facility] Start Date: 01/08/19 Status: Ordered levothyroxine 100 mcg (0.1 mg) oral tablet Start: 03/12/24 8:27:00 AM EDT, 90 each, 0 Refill(s), TAKE 1 TABLET BY MOUTH EVERY MORNING 30 MINUTES BEFORE BREAKFAST OR OTHER MEDICATIONS Start Date: 03/12/24 Status: Ordered levothyroxine 88 mcg (0.088 mg) oral tablet Start: 07/31/17 10:03:00 AM EDT, 1 tab, PO, Daily Start Date: 07/31/17 Status: Ordered triamcinolone 0.1% topical cream Start: 07/31/17 10:22:00 AM EDT, 1 appl, topical, bid, Disp# 30 g, Refills: 2, To red rash BID PRN, Pharmacy: [facility] Start Date: 07/31/17 Status: Ordered Vitamin D3 Start: 08/10/20 11:50:00 AM EDT, 2,000 Int_Unit =, PO, Daily Start Date: 08/10/20 Status: Ordered Mental Status 11/28/24 Barriers to Learning one year None evide nt Mandatory Health Literacy Documentation Yes Health Literacy Communication Barriers N ever Primary Language Mauritanian Problem List Condition Confirmation Course Effective Dates Status H ealth Status Informant Xerosis cutis Confirmed Active Stroke 1 Confirmed Active Dermatographia Confirmed Active Thyroid disease Confirmed Active Rectocele Confirmed Active Right hip pain Confirmed Active High blood pressure Confirmed Active Hypothyroidism Confirmed Active Left knee pain Confirmed Active Right knee DJD Confirmed Active Sebaceous hyperplasia Confirmed Active Skin lesion Confirmed Active Urticaria Confirmed Active 1speech slow Diagnosis Diagnosis Type Effective Dates Health Status Cl inical Service Informant Right knee DJD Discharge Diagnosis 11/28/24 Procedures Procedure Date Related Diagnosis Body Site Status Posterior colporrhaphy 08/17/20 Co mpleted Hysterectomy 1 Completed [id number] Social History Social History Type Response Smoking Status Never smoked cigaret yao Sex Female Sex Representation Female (finding) Patient Care team information Care Team Personnel Name: DO Santillan Shane D Position: Referring DIRECT Member Role: Primary Care Provider Address: [address] [place] [address] [place] Care Team Related Persons Name: VANCE LEAL
--- OUTSIDE RECORDS SUMMARY | 2025-02-25 07:58 | External Medical Summary | Summary of Care ---
Author Name Unknown Organization [facility] Address [address] [place] [address] Phone [phone] Care Team Providers Care Underground Mine Superintendent Name Role Phone Laura Haq MD Primary Care Provider [phone] Reason for Visit * Reason Onset Date Comments Appointment 11/18/2024 Encounter Details Date Type Department Care Team (Late st Contact Info) Description 11/18/2024 Telephone Gastroenterology, [facility] [address] [place] [address] Services, Scheduling [address] [place] [address] Appointment Allergies Active Allergy Reactions Criticality Noted Date Comments Aspirin 02/15/2022 H/o hives on excedrin yrs ago per pt Ibuprofen 03/31/2009 Penicillins 10/31/2000 Sulfa Antibiotics 10/04/2002 documented as of this encounter (statuses as of 02/18/2025) Medications Loratadine 10 MG Oral Tablet (Claritin)Indicat ions:Cellulitis of chest wall,Rash without hives Take 1 Tablet by mouth daily as needed (hives). x1-2 wks then as needed-otc 30 Tablet 5 1 Active Vitamin D (Cholecalciferol) 50 MCG (1999) Oral CapsuleIndication s:Age-related osteoporosis without current pathological fracture Take by mouth. Activ e Zoster Vac Recomb Adjuvanted 50 MCG/0.5ML Intramuscular Suspension Reconstituted (Shingrix)Indicat ions:Need for shingles vaccine Inject 0.5 mL into a large muscle now and repeat dose in 60 to 180 days 1 Each 1 4 Active Additional Information Patient not taking.Reported on 11/25/2024 Atorvastatin Calcium 80 MG Oral Tablet (Lipitor)Indicati ons:Left pontine CVA (HCC),Mixed dyslipidemia take 1 tablet by mouth every morning 90 Tablet 3 4 Active Ventolin HFA 108 (90 Base) MCG/ACT Inhalation Aerosol SolutionIndicatio ns:Subacute cough Inhale 2 Puffs by mouth every 4 hours as needed for Wheezing. 18 g 2 4 Active Additional Information Patient not taking.Reported on 11/25/2024 Clopidogrel Bisulfate 75 MG Oral Tablet (pLAVix)Indicatio ns:Left pontine CVA (HCC) TAKE 1 TABLET BY MOUTH EVERY DAY IN THE MORNING 90 Tablet 1 4 Active Ezetimibe 10 MG Oral Tablet (Zetia)Indication s:Left pontine CVA (HCC),Mixed dyslipidemia Take 1 Tablet by mouth in the morning. Start 11/11/2024. 90 Tablet 3 5 Active documented as of this encounter (statuses as of 02/18/2025) Active Problems Problem Noted Date Diagnosed Date Primary osteoarthritis of both knees 11/11/2024 Microscopic hematuria 11/11/2024 Elevated ALT measurement 11/11/2024 History of acute sinusitis 11/11/2024 Superficial varicosities 05/08/2023 Age-related osteoporosis wit hout current pathological fracture 01/11/2023 Overview (01/11/2023): dexa 01/10/23--0.9/-2.1-HR--[place] appt Left pontine CVA 02/15/2022 PFO (patent foramen ovale) 02/15/2022 Mixed dyslipidemia 02/02/2022 Bunion 02/02/2022 Prediabetes 06/08/2020 Overview: Per Prediabetes protocol Dermatitis of both ear canals 06/17/2019 Seborrheic dermatitis 11/13/2018 HTN, goal below 130/80 04/30/2018 Fatty liver 07/21/2015 Overview (07/21/2015): 2004 [place]. Obesity, Class I, BMI 30.0-34.9 (see actual BMI) 07/21/2015 Acquired hypothyroidism 03/09/2009 Chronic rhinitis 11/18/2002 documented as of this encounter (statuses as of 02/18/2025) Resolved Problems Problem Noted Date Diagnosed Date Resolved Date LFT elevation 07/21/2015 02/02/2022 Overview (07/21/2015): 2004, nl LFTs since. Vertigo 10/10/2011 02/02/2022 Otitis externa, eczematoid 10/05/2011 0 01/15/2018 Recurrent sinusitis 10/05/2011 01/16/20 18 TMJ (temporomandibular joint syndrome) 10/05/2011 05/25/2020 Dysfunction of eustachian tube 10/05/2011 01/15/2018 ADVANCE DIRECTIVE INFORMATION 11/16/2005 02/02/2022 Overview (11/16/2005): No, Advance Directive brochure given to patient at prior appointment. ABNORMAL THYROID FUNCT STUDY 07/28/2004 01/15/2018 documented as of this encounter (statuses as of 02/18/2025) Immunizations Name Administration Dates Next Due COVID-19 mRNA, LNP-s, No Pre serve, 2-Dose Series (Moderna) 12/28/2020,11/24/2020 COVID-19, mRNA, LNP-s, PF, B ooster, 100mcg/0.5mg (Moderna) 08/30/2021 Covid-19, Mrna, Lnp-s, Pf, B ivalent, 50 Mcg, IM, 12 yrs and above (Moderna) 08/08/2022 Pneumococcal Conjugate Vaccine, 20-valent (Prevn ar20) 11/07/2022 Seasonal Influenza, High Dos e, Trivalent, PF, IM (Fluzone HD) 11/11/2024 Seasonal Influenza, Quadrivalent Hd (Fluzone Hd) 11/17/2023,11/07/2022 TDAP (age 10 and older)(Boostrix) 12/05/2012 documented as of this encounter Social History Tobacco Use Types Packs/Day Years Used Date Smoking Tobacco: Never Smokeless Tobacco: Never Alcohol Use Standard Drinks/Week Comments Yes 0 (1 standard drink = 0.6 oz pur e alcohol) rare PHQ-2 Answer Date Recorded PHQ Adult Total Score 0 11/09/2023 Comments No Sex and Gender Information Value Date Recorded Sex Assigned at Not on file Legal Sex Female 5:57 AM EST Gender Identity Not on file Sexual Orientation Not on file Occupation Industry Job Start Date Job End Date Not on file Not on file Not on file Not on file documented as of this encounter Miscellaneous Notes * Telephone Encounter - Ana Laura Hicks OSA - 11/18/2024 4:02 PM EST Pt would like to reschedule appointment scheduled for 11/25/24, please assist documented in this encounter Plan of Treatment Upcoming Encounters Date Type Department Care Team (Latest Contact Info) Description 03/11/2025 8:15 AM EDT Imaging Radiology [address] [place] [address] 04/17/2025 2:30 PM EDT Hospital Encounter [facility], Endoscopy Room [facility] [address] [place] [address] Lorene Ojeda MD [address] [place] [address] 04/17/2025 2:30 PM EDT - 04/17/2025 3:00 PM EDT Surgery ENDO [facility], Endoscopy Room [facility] [address] [place] [address] Lorene Ojeda MD [address] [place] [address] COLONOSCOPY FLEXIBLE PROXIMAL DIAGNOSTIC 05/13/2025 8:30 AM EDT Imaging Radiology [facility] [address] [place] [address] 05/16/2025 8:00 AM EDT Office Visit General Internal Medicine State Inessa Hansen [address] [place], [place] [address] Laura Haq MD [address] [place] [address] Scheduled Procedures Name Priority Associated Diagnoses Date/Ti me COLONOSCOPY FLEXIBLE PROXIMAL DIAGNOSTIC Recall Special screening for malignant neoplasms, colon 04/17/2025 2:30 PM EDT Health Maintenance Due Date Last Done Comments Cologuard 1999 Fecal Occult Blood Test 1999 Sigmoidoscopy 1999 Zoster Vaccines (1 of 2) 2004 Depression Screening 01/24/2017 01/25/2016 (Laura capps) Adult Wellness Visit 2020 DTap/Tdap Vaccines (2 - Td or Tdap) 12/05/2022 12/05/2012 *BISPHONATE OR OTHER ACCEPTABLE MEDICATION NEEDED FOR OSTEOPOROSIS (REFER TO SMARTSET #1146) 01/14/2023 Colonoscopy 03/17/2024 03/17/2014, 03/17/2014 Colorectal Cancer Screening 03/17/2024 COVID-19 Vaccine ( season) 2024 08/08/2022, 08/30/2021, 12/28/2020, Additional history exists DXA Scan 01/09/2025 01/09/2023 Mammogram 09/11/2025 09/11/2024, 07/3 10/2022, 11/19/2018, Additional history exists GFR 11/08/2025 11/08/2024, 110 02/2024, 05/06/2024, Additional history exists HbA1c 11/08/2025 11/08/2024, 07/0 05/2024, 11/06/2023, Additional history exists TSH 11/08/2025 11/08/2024, 07/0 05/2024, 11/06/2023, Additional history exists Albumin/Creatinine Ratio 11/08/2027 025, 11/06/2023, 05/03/2022 Pneumococcal Vaccine: 50+ Years Completed 11/07/2022 VITAMIN D LEVEL ONCE IN A LIFETIME-USE SMARTSET# 99083 Completed 05/06/2024, 02/06/2023 Influenza Vaccine (FLU shot) Completed , 11/17/2023, 11/07/2022 HPV (Gardasil) Vaccine Aged Out No lo nger eligible based on patient's age to complete this topic Hepatitis B Vaccine Aged Out No longe r eligible based on patient's age to complete this topic MENINGOCOCCAL (MENACTRA/MENVEO) Aged Out No longer eligible based on patient's age to complete this topic Meningitis B Vaccine (Bexsero/Trumemba) Aged Out No longer eligible based on patient's age to complete this topic documented as of this encounter Medical Devices Not on filedocumented as of this encounter Care Teams Underground Mine Superintendent Relationship Specialty Start Date End Date Laura Haq MD [address] [place] [address] PCP - General Internal Medicine 02/02/22 documented as of this encounter
--- OUTSIDE RECORDS SUMMARY | 2025-02-25 07:58 | External Medical Summary | Continuity of Care Document ---
Author Name Unknown Organization [id number] Address [address] [place] [id number] Care Team Providers Care Gravity Prospector Name Role Phone Tyrell Chon Marciano Primary Care Physician [phone] [id number] Date(s): 11/14/24 - 11/14/24 [facility] [address] [facility] [address] [facility] Medicine [address] [address] Encounter Diagnosis Right knee DJD(Discharge Diagnosis) - 11/14/24 Discharge Disposition: Home or Self Care Attending Physician: CRISTINO Vanessa Dennis Allergies, Adverse Reactions, Alerts Substance Criticality Severity Reaction Reaction Severity Status ibuprofen hives Active penicillin hives Active sulfa drugs hives Active Assessment and Plan Extracted from: Title:Clinical Document Author:CRISTINO Vanessa Denn is Date:11/14/24 OUTPATIENT NOTE Name: EDILBERTO LEAL Patient Number:[id number] : 1955 Date of Service: 11/14/2024 HPI: This 69-year-old female presents to the clinic today for right knee Euflexxa injection #1. Patient states she has never had viscosupplementation injections in the past. She states she has documented arthritis in both knees but her left knee does not hurt. She experiences significant pain in her right knee mostly over the medial joint space. She states this seems to be a little flared up today because she has been watching her granddaughter for the past several days. Physical examination: Right knee; range of motion is from 0 degrees of extension to approximately 118 degrees of flexion. She experiences medial joint line tenderness when the knee is palpated in a flexed position. She has some slight visible varus malalignment. She has no laxity with varus or valgus stressing. With drawer sign Danny test are negative. Patient is neurovascularly intact in the right lower extremity. Impression: Right knee degenerative joint disease Procedure: Patient was seated on the edge of the table with the right knee placed in the flexed position. Using a skin marker the appropriate extremity was marked. Using the cap of the needle the lateral joint space of the right knee was marked. A timeout was performed with the patient and she verbalizes that we will proceed with right knee Euflexxa injection #1. Marked site as cleansed with a Betadine swab, anesthetized with ethyl chloride spray, and wiped clean with alcohol soaked 4 x 4. A 22-gauge needle connected to a prefilled syringe containing Euflexxa was easily passed through the lateral joint space of the right knee and injected free- flowing without meeting resistance. Upon removal of the needle patient had no bleeding. Site was again cleansed with an alcohol soaked 4 x 4, wiped dry with a sterile 4 x 4 and covered with a Band-Aid. SUPERVISOR SAMPLERonit Spain served as a witness for this procedure. Plan: Patient was advised to watch for signs and symptoms of infection if any should occur she was advised to either contact our clinic or go to the emergency department immediately. Patient verbalized understanding of all information provided during today's visit. She thanks for the care that she received. If she has questions or concerns prior to her next injection in 1 week, she will contact the clinic. This chart was completed utilizing [employer] voice recognition software. Grammatical errors, random word insertions, pronoun errors, and in complete sentences are an occasional consequence of the system. Any questions or concerns about the content, text, or information contained within the body of this dictation should be addressed directly to the physician for clarification. Medications amLODIPine 5 mg oral tablet Start: [...] THE MORNING Start Date: 03/12/24 Status: Ordered Euflexxa 10 mg/mL intra-articular solution Start: 11/06/24 12:07:00 PM EST, 20 mg =, intra-articular, q7days, Disp# 6 mL, X 3 weeks, Refills: 0,R KNEE DJD M17.11, Note to Pharmacy: 3 syringes for R knee. Please ship to physician's office: Ely Marcus. Oswaldo. [address] [place] [id number], Stop: 11/27/24 12:07:00 PM EST, Pharmacy: [facility] Start Date: 11/06/24 Stop Date: 11/27/24 Status: Ordered hydrocortisone 2.5% topical cream Start: 01/08/19 5:09:00 PM EDT, See Instructions, Disp# 20 g, Refills: 1, Apply in a thin film to the affected skin at the eyebrows once daily as needed, do NOT apply to eyelashes, Pharmacy: [facility] Start Date: 01/08/19 Status: Ordered levothyroxine 100 [...] 2, To red rash BID PRN, Pharmacy: [facility] Start Date: 07/31/17 Status: Ordered Vitamin D3 Start: 08/10/20 11:50:00 AM EDT, 2,000 Int_Unit =, PO, Daily Start Date: 08/10/20 Status: Ordered Mental Status 11/14/24 Barriers to Learning one year None evide nt Mandatory Health Literacy Documentation Yes Health Literacy Communication Barriers N ever Primary Language Andorran Problem List Condition Confirmation Course Effective Dates Status H ealth Status Informant Xerosis cutis Confirmed Active Stroke 1 Confirmed Active Dermatographia Confirmed Active Thyroid disease Confirmed Active Rectocele Confirmed Active Right hip pain Confirmed Active High blood pressure Confirmed Active Hypothyroidism Confirmed Active Left knee pain Confirmed Active Sebaceous hyperplasia Confirmed Active Skin lesion Confirmed Active Urticaria Confirmed Active 1speech slow Diagnosis Diagnosis Type Effective Dates Health Status Cl inical Service Informant Right knee DJD Discharge Diagnosis 11/14/24 Procedures Procedure Date Related Diagnosis Body Site Status Posterior colporrhaphy 08/17/20 Co mpleted Hysterectomy 1 Completed [id number] Social History Social History Type Response Smoking Status Never smoked cigaret yao Sex Female Sex Representation Female (finding) Outpatient Note * CRISTINO Vanessa, Navjot: PERFORM Event Display: .Outpt Note Authored Date: [id number] OUTPATIENT NOTE Name: EDILBERTO LEAL Patient Number:[id number] : 1955 Date of Service: 11/14/2024 HPI: This 69-year-old female presents to the clinic today for right knee Euflexxa injection #1. Patient states she has never had viscosupplementation injections in the past. She states she has documented arthritis in both knees but her left knee does not hurt. She experiences significant pain in her right knee mostly over the medial joint space. She states this seems to be a little flared up today because she has been watching her granddaughter for the past several days. Physical examination: Right knee; range of motion is from 0 degrees of extension to approximately 118 degrees of flexion. She experiences medial joint line tenderness when the knee is palpated in a flexed position. She has some slight visible varus malalignment. She has no laxity with varus or valgus stressing. With drawer sign Danny test are negative. Patient is neurovascularly intact in the right lower extremity. Impression: Right knee degenerative joint disease Procedure: Patient was seated on the edge of the table with the right knee placed in the flexed position. Using a skin marker the appropriate extremity was marked. Using the cap of the needle the lateral joint space of the right knee was marked. A timeout was performed with the patient and she verbalizes that we will proceed with right knee Euflexxa injection #1. Marked site as cleansed with a Betadine swab, anesthetized with ethyl chloride spray, and wiped clean with alcohol soaked 4 x 4. A 22-gauge needle connected to a prefilled syringe containing Euflexxa was easily passed through the lateral joint space of the right knee and injected free-flowing without meeting resistance. Upon removal of the needle patient had no bleeding. Site was again cleansed with an alcohol soaked 4 x 4, wipeddry with a sterile 4 x 4 and covered with a Band-Aid. SUPERVISOR SAMPLE Eliud Spain served as a witness for this procedure. Plan: Patient was advised to watch for signs and symptoms of infection if any should occur she was advised to either contact our clinic or go to the emergency department immediately. Patient verbalized understanding of all information provided during today's visit. She thanks for the care that shereceived. If she has questions or concerns prior to her next injection in 1 week, she will contact the clinic. This chart was completed utilizing [employer] voice recognition software. Grammatical errors,random word insertions, pronoun errors, and in complete sentences are an occasional consequence of the system. Any questions or concerns about the content, text, or information contained within the body of this dictation should be addressed directly to the physician for clarification. Electronic Signature on File Electronically Reviewed/Signed by: Navjot Vanessa PA-C Author Signature Dt/Tm:11/14/2024 02:33 PM Division of Sports Medicine Electronically Reviewed/Signed by: Anderson Ferrer MD Cosigner Signature Dt/Tm: 11/14/2024 04:45 PM Software Implementation Project Manager for Clinical Affairs, [facility] Megan Professor in Orthopaedics Laborer/Key Man, [facility] Sports [facility] Patient Care team information Care Team Personnel Name: DO Santillan Shane D Position: Referring DIRECT Member Role: Primary Care Provider Address: [address] [place] [address] [place] Care Team Related Persons Name: VANCE LEAL
--- OUTSIDE RECORDS SUMMARY | 2025-02-25 07:58 | External Medical Summary | Summary of Care ---
Author Name Unknown Organization [facility] Address [address] [place] [address] Phone [phone] Care Team Providers Care Hospitality Recruiter Name Role Phone Laura Haq MD Primary Care Provider [phone] Reason for Visit * Reason Onset Date Comments Appointment 02/21/2025 Encounter Details Date Type Department Care Team (Late st Contact Info) Description 02/21/2025 Telephone Gastroenterology, [facility] [address] [place] [address] Specified, Zz No Resource [address] [place] [address] Appointment Allergies Active Allergy Reactions Criticality Noted Date Comments Aspirin 02/15/2022 H/o hives on excedrin yrs ago per pt Ibuprofen 03/31/2009 Penicillins 10/31/2000 Sulfa Antibiotics 10/04/2002 documented as of this encounter (statuses as of 02/21/2025) Medications Loratadine 10 MG Oral Tablet (Claritin)Indicati ons:Cellulitis of chest wall,Rash without hives Take 1 Tablet by mouth daily as needed (hives). x1-2 wks then as needed-otc 30 Tablet 5 09/16/20 21 Active Vitamin D (Cholecalciferol) 50 MCG (1999 UT) Oral CapsuleIndications :Age-related osteoporosis without current pathological fracture Take by mouth. Activ e Zoster Vac Recomb Adjuvanted 50 MCG/0.5ML Intramuscular Suspension Reconstituted (Shingrix)Indicati ons:Need for shingles vaccine Inject 0.5 mL into a large muscle now and repeat dose in 60 to 180 days 1 Each 11/09/19 24 Active Additional Information Patient not taking.Reported on 11/25/2024 Atorvastatin Calcium 80 MG Oral Tablet (Lipitor)Indicatio ns:Left pontine CVA (HCC),Mixed dyslipidemia take 1 tablet by mouth every morning 90 Tablet 3 06/18/20 24 Active Ventolin HFA 108 (90 Base) MCG/ACT Inhalation Aerosol SolutionIndication s:Subacute cough Inhale 2 Puffs by mouth every 4 hours as needed for Wheezing. 18 g 2 09/03/20 24 Active Additional Information Patient not taking.Reported on 11/25/2024 Clopidogrel Bisulfate 75 MG Oral Tablet (pLAVix)Indication s:Left pontine CVA (HCC) TAKE 1 TABLET BY MOUTH EVERY DAY IN THE MORNING 90 Tablet 1 09/05/20 24 Active Ezetimibe 10 MG Oral Tablet (Zetia)Indications :Left pontine CVA (HCC),Mixed dyslipidemia Take 1 Tablet by mouth in the morning. Start 11/11/2024. 90 Tablet 3 11/11/19 25 Active Hydrocortisone 2.5 % External CreamIndications:S eborrheic dermatitis Apply to areas of redness on face nightly for 10 days, then only on weekends 30 g 12/02/19 25 Active Ketoconazole 2 % External CreamIndications:S eborrheic dermatitis Apply to rash on face each morning 30 g 12/02/19 25 Active Ketoconazole 2 % External Shampoo (Nizoral)Indicatio ns:Seborrheic dermatitis Lather into scalp three times per week in shower, then rinse 120 mL 12/02/19 25 Active Levothyroxine Sodium 100 MCG Oral Tablet (Levoxyl)Indicatio ns:Acquired hypothyroidism TAKE 1 TABLET BY MOUTH EVERY MORNING 30 MINUTES BEFORE BREAKFAST OR OTHER MEDICATIONS 90 Tablet 12/17/19 25 Active amLODIPine Besylate 5 MG Oral Tablet (Norvasc)Indicatio ns:HTN, goal below 130/80 TAKE 1 TABLET BY MOUTH EVERY DAY IN THE MORNING 90 Tablet 3 12/17/19 25 Active documented as of this encounter (statuses as of 02/21/2025) Active Problems Problem Noted Date Diagnosed Date [...] as of this encounter (statuses as of 02/21/2025) Resolved Problems Problem Noted Date Diagnosed Date [...] as of this encounter (statuses as of 02/21/2025) Immunizations Name Administration Dates Next Due COVID-19 [...] encounter Miscellaneous Notes * Telephone Encounter - Ladi Nicole OSA - 02/21/2025 2:01 PM EDT LM FOR PT TO RESCHEDULE 04/17 PROCEDURE. documented in this encounter Plan of Treatment Upcoming Encounters Date Type Department Care Team (Latest Contact Info) Description 02/26/2025 9:30 AM EDT Laboratory [facility] [address] [place] [id number] [address] [place] [address] 03/11/2025 8:15 AM EDT Imaging Radiology [facility] 2nd [facility] [address] [facility] [place] [address] 05/13/2025 8:30 AM EDT Imaging Radiology [facility] [address] [place] [phone] 05/16/2025 8:00 AM EDT Office Visit General Internal Medicine [facility] [address] [place] [address] Laura Haq MD 200 [facility] [place] [address] 07/11/2025 2:00 PM EDT Hospital Encounter ENDO [facility], Endoscopy Room [facility] [address] [facility] [place] [phone] Lorene Ojeda MD [address] [place] [address] 07/11/2025 2:00 PM EDT - 07/11/2025 2:30 PM EDT Surgery ENDO [facility], Endoscopy Room [facility] [address] [facility] [place] [phone] Lorene Ojeda MD [address] [place] [id number] COLONOSCOPY FLEXIBLE PROXIMAL DIAGNOSTIC Scheduled Procedures Name Priority Associated Diagnoses Date/Ti me COLONOSCOPY FLEXIBLE PROXIMAL DIAGNOSTIC Recall Special screening for malignant neoplasms, colon 07/11/2025 2:00 PM EDT Health Maintenance Due Date Last Done Comments Cologuard 1999 Fecal Occult Blood Test 1999 Sigmoidoscopy 1999 Zoster Vaccines (1 of 2) 2004 Depression Screening 01/24/2017 01/25/2016 (Discusse d) Adult Wellness Visit 2020 DTap/Tdap Vaccines (2 - Td or Tdap) 12/05/2022 12/05/2012 *BISPHONATE OR OTHER ACCEPTABLE MEDICATION NEEDED FOR OSTEOPOROSIS (REFER TO SMARTSET #1146) 01/14/2023 Colonoscopy 03/17/2024 03/17/2014, 03/17/2014 Colorectal Cancer Screening 03/17/2024 COVID-19 Vaccine ( season) 2024 08/08/2022, 08/30/2021, 12/28/2020, Additional history exists DXA Scan 01/09/2025 01/09/2023 Mammogram 09/11/2025 09/11/2024, 05/01, 11/19/2018, Additional history exists GFR 11/08/2025 11/08/2024, 1102/2024, 05/06/2024, Additional history exists HbA1c 11/08/2025 11/08/2024, 07/0 05/2024, 11/06/2023, Additional history exists TSH 11/08/2025 11/08/2024, 070 05/2024, 11/06/2023, Additional history exists Albumin/Creatinine Ratio 11/08/2027 025, 11/06/2023, 05/03/2022 Pneumococcal Vaccine: 50+ Years Completed 11/07/2022 VITAMIN D LEVEL ONCE IN A LIFETIME-USE SMARTSET# [id number] Completed 05/06/2024, 02/06/2023 Influenza Vaccine (FLU shot) [...] filedocumented as of this encounter Care Teams Hospitality Recruiter Relationship Specialty Start Date End Date Laura Haq MD [address] [place] [address] [place] [address] PCP - General Internal Medicine 02/02/22 documented as of this encounter
--- OUTSIDE RECORDS SUMMARY | 2025-02-25 07:58 | External Medical Summary | Summary of Care ---
Author Name Unknown Organization [facility] Address [address] [place] [address] Phone [phone] Care Team Providers Care Town Justice Name Role Phone Laura Haq MD Primary Care Provider [phone] Reason for Visit * Reason Onset Date Comments Medication Refill 11/30/2024 Encounter Details Date Type Department Care Team (Late st Contact Info) Description 11/30/2024 Refill Dermatology [facility] [place] [address] [facility] [place] [address] Jacob Mott MD [address] [facility] [place] [address] Seborrheic dermatitis Allergies Active Allergy Reactions Criticality Noted Date Comments Aspirin 02/15/2022 H/o hives on excedrin yrs ago per pt Ibuprofen 03/31/2009 Penicillins 10/31/2000 Sulfa Antibiotics 10/04/2002 documented as of this encounter (statuses as of 12/03/2024) Medications Loratadine 10 MG Oral Tablet (Claritin)Indicati [...] Additional Information Patient not taking.Reported on 11/25/2024 Levothyroxine Sodium 100 MCG Oral Tablet (Levoxyl)Indicatio ns:Acquired hypothyroidism TAKE 1 TABLET BY MOUTH EVERY MORNING 30 MINUTES BEFORE BREAKFAST OR OTHER MEDICATIONS 90 Tablet 3 12/05/19 24 Active amLODIPine Besylate 5 MG Oral Tablet (Norvasc)Indicatio ns:HTN, goal below 130/80 Take 1 Tablet by mouth in the morning. 90 Tablet 3 02/27/20 24 Active Atorvastatin Calcium 80 MG Oral Tablet (Lipitor)Indicatio [...] days, then only on weekends 30 g 1 12/02/19 25 Active Ketoconazole 2 % External CreamIndications:S eborrheic dermatitis Apply to rash on face each morning 30 g 3 12/02/19 25 Active Ketoconazole 2 % External Shampoo (Nizoral)Indicatio ns:Seborrheic dermatitis Lather into scalp three times per week in shower, then rinse 120 mL 12/02/19 25 Active Hydrocortisone 2.5 % External CreamIndications:S eborrheic dermatitis Apply to areas of redness on face nightly for 10 days, then only on weekends 30 g 1 11/16/19 24 025 Discontin ued(Refil l) Ketoconazole 2 % External CreamIndications:S eborrheic dermatitis Apply to rash on face each morning 30 g 3 11/16/19 24 025 Discontin ued(Refil l) Ketoconazole 2 % External Shampoo (Nizoral)Indicatio ns:Seborrheic dermatitis Lather into scalp three times per week in shower, then rinse 120 mL 11 12/07/19 24 025 Discontin ued(Refil l) documented as of this encounter (statuses as of 12/03/2024) Active Problems Problem Noted Date Diagnosed Date [...] 130/80 04/30/2018 Fatty liver 07/21/2015 Overview (07/21/2015): 2003 [place]. Obesity, Class I, BMI 30.0-34.9 (see actual BMI) 07/21/2015 Acquired hypothyroidism 03/09/2009 Chronic rhinitis 11/18/2002 documented as of this encounter (statuses as of 12/03/2024) Resolved Problems Problem Noted Date Diagnosed Date [...] as of this encounter (statuses as of 12/03/2024) Immunizations Name Administration Dates Next Due COVID-19 [...] encounter Miscellaneous Notes * Telephone Encounter - Jacob Mott MD - 12/02/2024 12:16 PM EST Signed Prescriptions: Disp Refills Hydrocortisone 2.5 % External Cream 30 g 1 Sig: Apply to areas of redness on face nightly for 10 days, then only on weekends Authorizing Provider: JACOB MOTT Ketoconazole 2 % External Cream 30 g 3 Sig: Apply to rash on face each morning Authorizing Provider: JACOB MOTT Ketoconazol e 2 % External Shampoo (Nizoral)120 mL 11 Sig: Lather into scalp three times per week in shower, then rinse Authorizing Provider: JACOB MOTT * Telephone Encounter - Ronda Escobedo LPN - 12/02/2024 9:38 AM EST Pending Prescriptions: Disp Refills Hydrocortisone 2.5 % External Cream 30 g 1 Sig: Apply to areasof redness on face nightly for 10 days, then only on weekends Ketoconazole 2 % External Cream 30 g 3 Sig: Apply to rash on face each morning Ketoconazole 2 % External Shampoo (Nizoral)120 mL 11 Sig: Lather into scalp three times per week in shower, then rinse--- documented in this encounter Plan of Treatment Upcoming Encounters Date Type Department Care Team (Latest Contact Info) Description 03/11/2025 8:15 AM EDT Imaging Radiology [facility] [address] [facility] [address] [facility] [place] [address] 04/17/2025 2:30 PM EDT Hospital Encounter ENDO [facility], Endoscopy Room [facility] [address] [place] [phone] Lorene Ojeda MD [address] [place] [id number] 04/17/2025 2:30 PM EDT - 04/17/2025 3:00 PM EDT Surgery ENDO [facility], Endoscopy Room [facility] [address] [place] [phone] Lorene Ojeda MD [address] [place] [address] COLONOSCOPY FLEXIBLE PROXIMAL DIAGNOSTIC 05/13/2025 8:30 AM EDT Imaging Radiology [facility] [address] [place] [address] 05/16/2025 8:00 AM EDT Office Visit General Internal Medicine [facility] [address] [facility] [place] [address] Laura Haq MD [address] [facility] [place] [address] Scheduled Procedures Name Priority Associated Diagnoses Date/Ti me COLONOSCOPY FLEXIBLE PROXIMAL DIAGNOSTIC Recall Special screening for malignant neoplasms, colon 04/17/2025 2:30 PM EDT Health Maintenance Due Date Last Done Comments Cologuard 1999 Fecal Occult Blood Test 1999 Sigmoidoscopy 1999 Zoster Vaccines (1 of 2) 2004 Adult Wellness Visit 2020 DTap/Tdap Vaccines (2 - Td or Tdap) 12/05/2022 12/05/2012 *BISPHONATE OR OTHER ACCEPTABLE MEDICATION NEEDED FOR OSTEOPOROSIS (REFER TO SMARTSET #1146) 01/14/2023 Colonoscopy 03/17/2024 03/17/2014, 03/17/2014 Colorectal Cancer Screening 03/17/2024 COVID-19 Vaccine ( season) 2024 08/08/2022, 08/30/2021, 12/28/2020, Additional history exists Depression Screening 11/09/2024 11/09/2023, 01/25/2016 (Discussed) DXA Scan 01/09/2025 01/09/2023 Mammogram 09/11/2025 09/11/2024, 07/3 10/2022, 11/19/2018, Additional history exists GFR 11/08/2025 11/08/2024, 110 02/2024, 05/06/2024, Additional history exists HbA1c 11/08/2025 11/08/2024, 07/0 05/2024, 11/06/2023, Additional history exists TSH 11/08/2025 11/08/2024, 07/0 05/2024, 11/06/2023, Additional history exists Albumin/Creatinine Ratio 11/08/2027 025, 11/06/2023, 05/03/2022 Pneumococcal Vaccine: 50+ Years Completed 11/07/2022 VITAMIN D LEVEL ONCE IN A LIFETIME-USE SMARTSET# [id number] Completed 05/06/2024, 02/06/2023 Influenza Vaccine (FLU shot) [...] Not on filedocumented as of this encounter Visit Diagnoses Diagnosis Seborrheic dermatitis Seborrheic dermatitis, unspecified Special screening for malignant neoplasms, colon documented in this encounter Care Teams Town Justice Relationship Specialty Start Date End Date Laura aHq MD [address] [facility] [place] [address] PCP - General Internal Medicine 02/02/22 documented as of this encounter
--- OUTSIDE RECORDS SUMMARY | 2025-02-25 07:58 | External Medical Summary | Continuity of Care Document ---
Author Name Unknown Organization [id number] Address [address] [place] [id number] Care Team Providers Care Ict Analyst Name Role Phone SvenChon hutton Marciano Primary Care Physician [phone] [id number] Date(s): 11/22/24 - 11/22/24 [facility] [address] [facility] [address] [facility] [place] [facility] Medicine [address] [place] [id number] Encounter Diagnosis Right knee DJD(Discharge Diagnosis) - 11/22/24 Discharge Disposition: Home or Self Care Attending Physician: MD Kumar Philip J Allergies, Adverse Reactions, Alerts Substance Criticality Severity Reaction Reaction Severity Status ibuprofen hives Active penicillin hives Active sulfa drugs hives Active Assessment and Plan Extracted from: Title:Orthopaedics Office Visit Note Author:Ramon dejesus MD, Philip J Date:11/22/24 1. Right knee DJD The patient would like to proceed with the landmark-based Euflexxa injection. Risks and benefits of injection were discussed. The site of injection was confirmed and the patient was correctly identified. I was assisted with the injection by Ines Rivera LPN. With the patient in the seated position, the samir-lateral aspect of the knee was cleaned with a chlorhexadine swab. Ethyl chloride spray used for topical anesthetic. A 22-gauge 1.5 inch needle was used to inject 2mL solution of Euflexxa into the rightknee via an anterior lateral approach. Patient tolerated the procedure well without any complications. Pain was minimal after the procedure. Area covered with adhesive bandage. Postinjection care was reviewed and patient will call for any adverse reactions. Follow-up in 1 week for injection #3 of 3 Medications amLODIPine 5 mg oral tablet Start: [...] R knee. Please ship to physician's office: [facility] [place] [address] [address], Stop: 11/27/24 12:07:00 PM EST, Pharmacy: [facility] Start Date: 11/06/24 Stop Date: 11/27/24 Status: Ordered hydrocortisone 2.5% topical cream Start: 01/08/19 5:09:00 PM EDT, See Instructions, Disp# 20 g, Refills: 1, Apply in a thin film to the affected skin at the eyebrows once daily as needed, do NOT apply to eyelashes, Pharmacy: [facility] Start Date: 01/08/19 Status: Ordered levothyroxine [...] To red rash BID PRN, Pharmacy: [facility] Start Date: 07/31/17 Status: Ordered Vitamin D3 Start: 08/10/20 11:50:00 AM EDT, 2,000 Int_Unit =, PO, Daily Start Date: 08/10/20 Status: Ordered Mental Status 11/22/24 Barriers to Learning one year None evide [...] Service Informant Right knee DJD Discharge Diagnosis 11/22/24 Procedures Procedure Date Related Diagnosis Body Site Status Posterior colporrhaphy 08/17/20 Co mpleted Hysterectomy 1 Completed [address] Social History Social History Type Response Smoking Status Never smoked cigaret yao Sex Female Sex Representation Female (finding) Ortho Outpt Note * MD Stacy, Kenny Gtz: PERFORM Event Display: Ortho Outpt Note Authored Date: Primary Care Provider DO Santillan Shane D History of Present Illness Edilberto is a 69-year-old female seen for the second of 3 Euflexxa injections for right knee DJD. She noticed some anterior knee discomfort after last week's injection. She has not had any redness or warmth in this area and is not having any pain at the injection site. She denies any recent injury. Physical Exam General: Appears well, ambulating comfortably. Right knee: No effusion, mildly tender over the medial joint line and medial tibial plateau. No hamstring or pes anserine tenderness or swelling. No redness or warmth. Pain-free and full strength with resisted knee flexion and knee extension. No bruising or tenderness at the previous injection site. Assessment/Plan 1. Right knee DJD The patient would like to proceed with the landmark- based Euflexxa injection. Risks and benefits of injection were discussed. The site of injection was confirmed and the patient was correctly identified. I was assisted with the injection by Ines Rivera LPN. With the patient in the seated position, the samir-lateral aspect of the knee was cleaned with achlorhexadine swab. Ethyl chloride spray used for topical anesthetic. A 22-gauge 1.5 inch needle was used to inject 2mL solution of Euflexxa into the rightknee via an anterior lateral approach. Patient tolerated the procedure well without any complications. Pain was minimal after the procedure. Area covered with adhesive bandage. Postinjection care was reviewed and patient will callfor any adverse reactions. Follow-up in 1 week for injection #3 of 3 Problem List/Past Medical History Ongoing Dermatographia High blood pressure Hypothyroidism Left knee pain Rectocele Right hip pain Right knee DJD Sebaceous hyperplasia Skin lesion Stroke Thyroid disease Urticaria Xerosis cutis Procedure/Surgical History •Posterior colporrhaphy| Service Date: 08/17/2020•Hysterectomy Medications amLODIPine(amLODIPine 5 mg oral tablet), 5 mg= 1 tab, PO, Daily atorvastatin(atorvastatin 80 mg oral tablet) cholecalciferol(Vitamin D3), 2000 Int_Unit, PO, Daily clopidogrel(clopidogrel 75 mg oral tablet) hydrocortisone topical(hydrocortisone 2.5% topical cream), See Instructions, 1 refills levothyroxine(levothyroxine 88 mcg (0.088 mg) oral tablet), 88 mcg= 1 tab, PO, Daily levothyroxine(levothyroxine 100 mcg (0.1 mg) oral tablet) sodium hyaluronate(Euflexxa 10 mg/mL intra-articular solution), 20 mg, intra- articular, q7days triamcinolone topical(triamcinolone 0.1% topical cream), 1 appl, topical, bid, 2 refills Allergies ibuprofen hives penicillin hives sulfa drugs hives Social History Smoking Status Never smoked cigarettes Family History Cancer: Unknown. Diabetes type: Unknown. Heart disease: Unknown. Health Status Family Member(s) Recommendations Health Maintenance Pending (in the next year) OverDue Adult Influenza Vaccine due 04/29/24 and every 1 year Due Adult COVID-19 Vaccination due 11/24/24 Unknown Frequency Adult Social Determinants of Health Screening due 11/24/24 Unknown Frequency Adult Tdap/Td Vaccine due 11/24/24 Unknown Frequency Breast Cancer Screening due 11/24/24 Unknown Frequency Colorectal Cancer Screening due 11/24/24 Unknown Frequency Hepatitis C Screening due 11/24/24 One-time only Medicare Annual Wellness Visit due 11/24/24 and every 1 year Osteoporosis Screening due 11/24/24 One-time only Pneumococcal Vaccine Older Adults due 11/24/24 One-time only Shingles Vaccine due 11/24/24 One-time only Due In Future Body Mass Index not due until 03/13/25 and every 366 day Satisfied (in the past 1 year) Satisfied Body Mass Index on 03/12/24. Satisfied by YESSICA [place] Kennie L Electronic Signature on File Electronically Reviewed/Signed by: Kenny Kumar MD Author Signature Dt/Tm:11/24/2024 04:42 PM Division of Sports Medicine [facility] Patient Care team information Care Team Personnel Name: DO Santillan Shane D Position: Referring DIRECT Member Role: Primary Care Provider Address: [address] [place] [address] Care Team Related Persons Name: VANCE LEAL"
--- OUTSIDE RECORDS SUMMARY | 2025-02-25 07:58 | External Medical Summary | Summary of Care ---
Author Name Unknown Organization [facility] Address [address] [place] [address] Phone [phone] Care Team Providers Care Credit Officer Name Role Phone Laura Haq MD Primary Care Provider Reason for Visit * Reason Comments eRx-Medication Refill Encounter Details Date Type Department Care Team (Late st Contact Info) Description 12/16/2024 Refill General Internal Medicine [facility] [address] [place] [address] Laura Haq MD [address] [place] [address] Acquired hypothyroidism; HTN, goal below 130/80 Allergies Active Allergy Reactions Criticality Noted Date Comments Aspirin 02/15/2022 H/o hives on excedrin yrs ago per pt Ibuprofen 03/31/2009 Penicillins 10/31/2000 Sulfa Antibiotics 10/04/2002 documented as of this encounter (statuses as of 12/18/2024) Medications Loratadine 10 MG Oral Tablet (Claritin)Indicat ions:Cellulitis of chest wall,Rash without hives Take 1 Tablet by mouth daily as needed (hives). x1-2 wks then as needed-otc 30 Tablet 5 021 Active Vitamin D (Cholecalciferol) 50 MCG (1999 UT) Oral CapsuleIndication s:Age-related osteoporosis without current pathological fracture Take by mouth. Activ e Zoster Vac Recomb Adjuvanted 50 MCG/0.5ML Intramuscular Suspension Reconstituted (Shingrix)Indicat ions:Need for shingles vaccine Inject 0.5 mL into a large muscle now and repeat dose in 60 to 180 days 1 Each 024 Active Additional Information Patient not taking.Reported on 11/25/2024 Atorvastatin Calcium 80 MG Oral Tablet (Lipitor)Indicati ons:Left pontine CVA (HCC),Mixed dyslipidemia take 1 tablet by mouth every morning 90 Tablet 3 024 Active Ventolin HFA 108 (90 Base) MCG/ACT Inhalation Aerosol SolutionIndicatio ns:Subacute cough Inhale 2 Puffs by mouth every 4 hours as needed for Wheezing. 18 g 2 024 Active Additional Information Patient not taking.Reported on 11/25/2024 Clopidogrel Bisulfate 75 MG Oral Tablet (pLAVix)Indicatio ns:Left pontine CVA (HCC) TAKE 1 TABLET BY MOUTH EVERY DAY IN THE MORNING 90 Tablet 1 024 Active Ezetimibe 10 MG Oral Tablet (Zetia)Indication s:Left pontine CVA (HCC),Mixed dyslipidemia Take 1 Tablet by mouth in the morning. Start 11/11/2024. 90 Tablet 3 025 Active Hydrocortisone 2.5 % External CreamIndications: Seborrheic dermatitis Apply to areas of redness on face nightly for 10 days, then only on weekends 30 g 025 Active Ketoconazole 2 % External CreamIndications: Seborrheic dermatitis Apply to rash on face each morning 30 g 025 Active Ketoconazole 2 % External Shampoo (Nizoral)Indicati ons:Seborrheic dermatitis Lather into scalp three times per week in shower, then rinse 120 mL 025 Active Levothyroxine Sodium 100 MCG Oral Tablet (Levoxyl)Indicati ons:Acquired hypothyroidism TAKE 1 TABLET BY MOUTH EVERY MORNING 30 MINUTES BEFORE BREAKFAST OR OTHER MEDICATIONS 90 Tablet 3 025 Active amLODIPine Besylate 5 MG Oral Tablet (Norvasc)Indicati ons:HTN, goal below 130/80 TAKE 1 TABLET BY MOUTH EVERY DAY IN THE MORNING 90 Tablet 3 025 Active Levothyroxine Sodium 100 MCG Oral Tablet (Levoxyl)Indicati ons:Acquired hypothyroidism TAKE 1 TABLET BY MOUTH EVERY MORNING 30 MINUTES BEFORE BREAKFAST OR OTHER MEDICATIONS 90 Tablet 3 024 2024 Discontinued amLODIPine Besylate 5 MG Oral Tablet (Norvasc)Indicati ons:HTN, goal below 130/80 Take 1 Tablet by mouth in the morning. 90 Tablet 3 024 2024 Discontinued documented as of this encounter (statuses as of 12/18/2024) Active Problems Problem Noted Date Diagnosed Date Primary osteoarthritis of both knees 11/11/2024 Microscopic hematuria 11/11/2024 Elevated ALT measurement 11/11/2024 History of acute sinusitis 11/11/2024 Superficial varicosities 05/08/2023 Age-related osteoporosis wit hout current pathological fracture 01/11/2023 Overview (01/11/2023): dexa 01/10/23--0.9/-2.1-HR--adllas appt Left pontine CVA 02/15/2022 PFO (patent [...] as of this encounter (statuses as of 12/18/2024) Resolved Problems Problem Noted Date Diagnosed Date [...] as of this encounter (statuses as of 12/18/2024) Immunizations Name Administration Dates Next Due COVID-19 [...] encounter Miscellaneous Notes * Telephone Encounter - Eboni Castellanos [facility] - 12/17/2024 4:14 PM ESTSigned Prescriptions: Disp Refills Levothyroxine Sodium 100 MCG Oral Tablet (*90 Tab*3 Sig: TAKE 1 TABLET BY MOUTH EVERY MORNING 30 MINUTES BEFORE BREAKFAST OR OTHER MEDICATIONSAuthorizing Provider: Padmini HAQ User: EBONI CASTELLANOS amLODIPine Besylate 5 MG Oral Tablet (Norv*90 Tab*3 Sig: TAKE 1 TABLET BY MOUTH EVERY DAY IN THE MORNINGAuthorizing Provider: Padmini HAQ User:EBONI CASTELLANOS documented in this encounter Plan of Treatment Upcoming Encounters Date Type Department Care Team (Latest Contact Info) Description 03/11/2025 8:15 AM EDT Imaging Radiology [facility] 2nd [facility] [address] [place] [address] 04/17/2025 2:30 PM EDT Hospital Encounter ENDO O[facility], Endoscopy Room [facility] [address] [place] [place] [phone] Lorene Ojeda MD [address] [place] [address] 04/17/2025 2:30 PM EDT - 04/17/2025 3:00 PM EDT Surgery ENDO [facility], Endoscopy Room [facility] [address] [place] [phone] Lorene Ojeda MD [address] [place] [id number] COLONOSCOPY FLEXIBLE PROXIMAL DIAGNOSTIC 05/13/2025 8:30 AM EDT Imaging Radiology [facility] [address] [place] [place] [phone] 05/16/2025 8:00 AM EDT Office Visit General Internal Medicine [facility] [address] [facility] [place] [address] Laura Haq MD [address] [place] [address] Scheduled Procedures Name Priority Associated Diagnoses Date/Ti [...] D LEVEL ONCE IN A LIFETIME-USE SMARTSET# [id number] Completed 05/06/2024, 02/06/2023 Influenza Vaccine (FLU shot) [...] as of this encounter Visit Diagnoses Diagnosis Acquired hypothyroidism Unspecified hypothyroidism HTN, goal below 130/80 Unspecified essential hypertension Special screening for malignant neoplasms, colon documented in this encounter Care Teams Credit Officer Relationship Specialty Start Date End Date Laura Haq MD [address] [place] [address] PCP - General Internal Medicine 02/02/22 documented as of this encounter
--- OUTSIDE RECORDS SUMMARY | 2025-02-25 07:58 | External Medical Summary | Summary of Care ---
Author Name Unknown Organization [facility] Address [address] [place] [address] Phone [phone] Care Team Providers Care Tack Puller Machine Name Role Phone Chandu Haq MD Primary Care Provider [phone] Reason for Visit * Reason Comments Skin Check Pt presents today fo r a 6 m f/u for seborrheic dermatitis, scalp and forehead, face: HCT 2.5% and ketoconazole cream, scalp: ketoconazole shampoo, both show very little improvment Encounter Details Date Type Department Care Team (Late st Contact Info) Description 11/25/2024 9:00 AM EST Office Visit Dermatology [facility] [place] [address] [place] [address] Jacob Mott MD [address] [place] [address] Seborrheic dermatitis*; Androgenetic alopecia Allergies Active Allergy Reactions Criticality Noted Date Comments Aspirin 02/15/2022 H/o hives on excedrin yrs ago per pt Ibuprofen 03/31/2009 Penicillins 10/31/2000 Sulfa Antibiotics 10/04/2002 documented as of this encounter (statuses as of 11/25/2024) Medications Loratadine 10 MG Oral Tablet (Claritin)Indicati [...] Additional Information Patient not taking.Reported on 11/25/2024 Hydrocortisone 2.5 % External CreamIndications:S eborrheic dermatitis Apply to areas of redness on face nightly for 10 days, then only on weekends 30 g 11/16/19 24 Active Ketoconazole 2 % External CreamIndications:S eborrheic dermatitis Apply to rash on face each morning 30 g 11/16/19 24 Active Levothyroxine Sodium 100 MCG Oral Tablet (Levoxyl)Indicatio ns:Acquired hypothyroidism TAKE 1 TABLET BY MOUTH EVERY MORNING 30 MINUTES BEFORE BREAKFAST OR OTHER MEDICATIONS 90 Tablet 3 12/05/19 24 Active Ketoconazole 2 % External Shampoo (Nizoral)Indicatio ns:Seborrheic dermatitis Lather into scalp three times per week in shower, then rinse 120 mL 11 12/07/19 24 Active amLODIPine Besylate 5 MG Oral [...] 11/11/2024. 90 Tablet 3 11/11/19 25 Active documented as of this encounter (statuses as of 11/25/2024) Active Problems Problem Noted Date Diagnosed Date [...] as of this encounter (statuses as of 11/25/2024) Resolved Problems Problem Noted Date Diagnosed Date [...] as of this encounter (statuses as of 11/25/2024) Immunizations Name Administration Dates Next Due COVID-19 [...] on file documented as of this encounter Progress Notes * Jacob Mott MD - 11/25/2024 8:58 AM EST SUBJECTIVE: Chief Complaint: Chief Complaint Patient presents with Skin Check Pt presents today for a 6 m f/u for seborrheic dermatitis, scalp and forehead, face: HCT 2.5% and ketoconazole cream, scalp: ketoconazole shampoo, both show very little improvment HPI: Priya Church is a 69 year old female seen for f/u of adama derm of face and scalp. Did get approved for zoryve foam, but didn't start because thought it wasn't bad. Really only notices it in certain lights Currently just using ketoconazole cream and HCT Her main concern today is hair thinning. Scalp feels very crusty Not much family history of hair thinning Does have history of hypothyroidism, on levothyroxine Recently noticed gradual thinning OBJECTIVE: GEN: Healthy, alert, no distress, appears oriented, pleasant, and cooperative SKIN: Problem focused exam reveals: Scalp with scattered thin erosions No significant lesions/rash of face Mildly decreased hair density, particularly with a mildly widened part Negative hair pull test ASSESSMENT/PLAN: Seborrheic dermatitis, early/mild androgenetic alopecia - encouraged use of zoryve foam as previously prescribed - recommend treating underlying adama derm to eliminate inflammatory causes for hair loss - reviewed potential treatments for androgenetic alopecia including finasteride and minoxidil. Willconsider topical minoxidil - healthy diet, protein, collagen F/u - 6 months for skin check and hair loss Jacob Mott MD REF: SELF [address] ADDRESS AVAILABLE PCP: [place] [facility] [address] documented in this encounter Nursing Notes * Deanna Tse MED ASSIST - 11/25/2024 8:53 AM EST Chief Complaint Patient presents with Skin Check Pt presents today for a 6 m f/u for seborrheic dermatitis, scalp and forehead, face: HCT 2.5% and ketoconazole cream, scalp: ketoconazole shampoo, both show very little improvment documented in this encounter Plan of Treatment Upcoming Encounters Date Type Department Care Team (Latest Contact Info) Description 03/11/2025 8:15 AM EDT Imaging Radiology [facility]nd [facility] [place] [address] 04/17/2025 2:30 PM EDT Hospital Encounter ENDO [facility], Endoscopy Room [facility] [address] [facility] [place] [phone] Lorene Ojeda MD [address] [facility] [place] [id number] 04/17/2025 2:30 PM EDT - 04/17/2025 3:00 PM EDT Surgery ENDO [facility], Endoscopy Room [facility] [address] [facility] [place] [phone] Lorene Ojeda MD [address] [place] [address] COLONOSCOPY FLEXIBLE PROXIMAL DIAGNOSTIC 05/13/2025 8:30 AM EDT Imaging Radiology [facility] [address] [facility] [place] [phone] 05/16/2025 8:00 AM EDT Office Visit General Internal Medicine [facility] [place] [address] [place] [address] Chandu Haq MD [address] [facility] [place] [address] Scheduled Procedures Name Priority Associated Diagnoses Date/Ti [...] 11/19/2018, Additional history exists GFR 11/08/2025 11/08/2024, 11/0 02/2024, 05/06/2024, Additional history exists HbA1c 11/08/2025 11/08/2024, 07/0 05/2024, 11/06/2023, Additional history exists TSH 11/08/2025 11/08/2024, 07/0 05/2024, 11/06/2023, Additional history exists Albumin/Creatinine Ratio 11/08/2027 025, 11/06/2023, 05/03/2022 Pneumococcal Vaccine: 50+ Years Completed 11/07/2022 VITAMIN D LEVEL ONCE IN A LIFETIME-USE SMARTSET# [id number] Completed 05/06/2024, 02/06/2023 Influenza Vaccine (FLU shot) [...] of this encounter Visit Diagnoses Diagnosis Seborrheic dermatitis- Primary Seborrheic dermatitis, unspecified Androgenetic alopecia Other alopecia Special screening for malignant neoplasms, colon documented in this encounter Care Teams Tack Puller Machine Relationship Specialty Start Date End Date Chandu Haq MD [address] [place] [address] PCP - General Internal Medicine 02/02/22 documented as of this encounter
--- OUTSIDE RECORDS SUMMARY | 2025-02-25 07:58 | External Medical Summary | Summary of Care ---
Author Name Unknown Organization [facility] Address [address] [place] [address] Phone [phone] Care Team Providers Care Clerical Administrator Name Role Phone Laura Haq MD Primary Care Provider [phone] Reason for Visit * Reason Onset Date Comments Preop Pt Assessment 11/14/2024 Encounter Details Date Type Department Care Team (Late st Contact Info) Description 11/14/2024 Telephone Pre [facility] [address] [facility] [phone] Lorene Ojeda MD [address] [place], [place] [address] [address] Preop Pt Assessment Allergies Active Allergy Reactions Criticality Noted Date Comments Aspirin 02/15/2022 H/o hives on excedrin yrs ago per pt Ibuprofen 03/31/2009 Penicillins 10/31/2000 Sulfa Antibiotics 10/04/2002 documented as of this encounter (statuses as of 11/20/2024) Medications Loratadine 10 MG Oral Tablet (Claritin)Indicati ons:Cellulitis of chest wall,Rash without hives Take 1 Tablet by mouth daily as needed (hives). x1-2 wks then as needed-otc 30 Tablet 5 09/16/20 21 Active Vitamin D (Cholecalciferol) 50 MCG (1999) Oral CapsuleIndications :Age-related osteoporosis without current pathological fracture Take by mouth. Activ e Zoster Vac Recomb Adjuvanted 50 MCG/0.5ML Intramuscular Suspension Reconstituted (Shingrix)Indicati ons:Need for shingles vaccine Inject 0.5 mL into a large muscle now and repeat dose in 60 to 180 days 1 Each 1 11/09/19 24 Active Additional Information Patient not taking.Reported on 11/11/2024 Hydrocortisone 2.5 % External CreamIndications:S eborrheic dermatitis Apply to areas of redness on face nightly for 10 days, then only on weekends 30 g 1 11/16/19 24 Active Ketoconazole 2 % External CreamIndications:S eborrheic dermatitis Apply to rash on face each morning 30 g 3 11/16/19 24 Active Levothyroxine Sodium 100 MCG [...] Active Additional Information Patient not taking.Reported on 11/11/2024 Clopidogrel Bisulfate 75 MG Oral Tablet (pLAVix)Indication s:Left pontine CVA (HCC) TAKE 1 TABLET BY MOUTH EVERY DAY IN THE MORNING 90 Tablet 1 09/05/20 24 Active Ezetimibe 10 MG Oral Tablet (Zetia)Indications :Left pontine CVA (HCC),Mixed dyslipidemia Take 1 Tablet by mouth in the morning. Start 11/11/2024. 90 Tablet 3 11/11/19 25 Active documented as of this encounter (statuses as of 11/20/2024) Active Problems Problem Noted Date Diagnosed Date [...] as of this encounter (statuses as of 11/20/2024) Resolved Problems Problem Noted Date Diagnosed Date [...] as of this encounter (statuses as of 11/20/2024) Immunizations Name Administration Dates Next Due COVID-19 [...] on file documented as of this encounter Plan of Treatment Upcoming Encounters Date Type Department Care Team (Latest Contact Info) Description 11/25/2024 9:00 AM EST Office Visit Dermatology [facility] [place] [address] [place] [address] Jacob Mott MD [address] [place] [address] 03/11/2025 8:15 AM EDT Imaging Radiology [facility] 2nd [facility] [place] [address] [facility] [place] [address] 04/17/2025 2:30 PM EDT Hospital Encounter ENDO [facility], Endoscopy Room [facility] [address] [place] [phone] Lorene Ojeda MD [address] [place] [address] 04/17/2025 2:30 PM EDT - 04/17/2025 3:00 PM EDT Surgery ENDO [facility], Endoscopy Room [facility] [address] [place] [phone] Lorene Ojeda MD [address] [place] [address] COLONOSCOPY FLEXIBLE PROXIMAL DIAGNOSTIC 05/13/2025 8:30 AM EDT Imaging Radiology [facility] [address] [place] [phone] 05/16/2025 8:00 AM EDT Office Visit General Internal Medicine [facility] [address] [facility] [place] [address] Laura Haq MD [address] [facility] [place] [address] Scheduled Procedures Name Priority Associated Diagnoses Date/Ti [...] 11/06/2023, Additional history exists TSH 11/08/2025 11/08/2024, 0 05/2024, 11/06/2023, Additional history exists Albumin/Creatinine Ratio 11/08/2027 025, 11/06/2023, 05/03/2022 Pneumococcal Vaccine: 50+ Years Completed 11/07/2022 VITAMIN D LEVEL ONCE IN A LIFETIME-USE SMARTSET# [id number] Completed 05/06/2024, 02/06/2023 Influenza Vaccine (FLU shot) [...] filedocumented as of this encounter Care Teams Clerical Administrator Relationship Specialty Start Date End Date Laura Haq MD [address] [facility] [place] [address] PCP - General Internal Medicine 02/02/22 documented as of this encounter
--- OUTSIDE RECORDS SUMMARY | 2025-02-25 07:59 | External Medical Summary ---
Author Name Unknown Address Unknown Organization [id number]:[facility] [place] [address] [facility] [address] Laboratory Report Ordering Provider Test Date Status BONNIE SCHOFIELD 11/08/2024 08:31:41 Final Observation Date Value Abnormality Reference (Units ) Status TSH 11/08/2024 08:31:41 2.17 0.27-4.20 (uIU/mL) Final Performing Location [facility] [place] [address] [facility] [address]
--- OUTSIDE RECORDS SUMMARY | 2025-02-25 07:59 | External Medical Summary ---
Author Name Unknown Address Unknown Organization [id number]:[facility] [place] [address] [place] [address] Laboratory Report Ordering Provider Test Date Status BONNIE SCHOFIELD 11/08/2024 08:31:41 Final Normal: <30 mg/g creatinine< br/>High: 30-300 mg/g creatinine
Very High: >300 mg/g creatinine
Nephrotic: >2200 mg/g creatinine Observation Date Value Abnormality Reference (Units ) Status Albumin, Urine 11/08/2024 08:31:41 <1.20 (mg/dL) Final Creatinine, Urine 11/08/2024 08:31:41 66 (mg/dL) Final Albumin/Creatinine [Mass Ratio] in Urine 11/08/2024 08:31:41 <18 <30 (mg/g Creat) Final Performing Location [facility] [place] [address] [place] [address]
--- OUTSIDE RECORDS SUMMARY | 2025-02-25 07:59 | External Medical Summary | Summary of Care ---
Author Name Unknown Organization [facility] Address [address] [place] [address] Phone [phone] Care Team Providers Care Carding Utility Tender Name Role Phone Laura Haq MD Primary Care Provider [phone] Reason for Visit * Reason Comments Outpatient Testing Encounter Details Date Type Department Care Team (Late st Contact Info) Description 11/08/2024 8:30 AM EST Laboratory Laboratory Scenery [facility] [place] [address] [place] [phone] [facility] Scen[facility] [address] [facility] [place] [address] HTN, goal below 130/80; Prediabetes; Mixed dyslipidemia; Fatty liver; Elevated ALT measurement; Acquired hypothyroidism Allergies Active Allergy Reactions Criticality Noted Date Comments Aspirin 02/15/2022 H/o hives on excedrin yrs ago per pt Ibuprofen 03/31/2009 Penicillins 10/31/2000 Sulfa Antibiotics 10/04/2002 documented as of this encounter (statuses as of 11/08/2024) Medications Loratadine 10 MG Oral Tablet (Claritin)Indicati [...] days 1 Each 1 11/09/19 24 Active Hydrocortisone 2.5 % External CreamIndications:S eborrheic [...] morning. 90 Tablet 3 02/27/20 24 Active Ezetimibe 10 MG Oral Tablet (Zetia)Indications :Left pontine CVA (HCC),Mixed dyslipidemia Take 1 Tablet by mouth in the morning. 90 Tablet 3 05/09/20 24 Active Additional Information Patient not taking.Reported on 09/03/2024 Atorvastatin Calcium 80 MG Oral Tablet (Lipitor)Indicatio ns:Left pontine CVA (HCC),Mixed dyslipidemia take 1 tablet by mouth every morning 90 Tablet 3 06/18/20 24 Active Ventolin HFA 108 (90 Base) MCG/ACT Inhalation Aerosol SolutionIndication s:Subacute cough Inhale 2 Puffs by mouth every 4 hours as needed for Wheezing. 18 g 2 09/03/20 24 Active Clopidogrel Bisulfate 75 MG Oral Tablet (pLAVix)Indication s:Left pontine CVA (HCC) TAKE 1 TABLET BY MOUTH EVERY DAY IN THE MORNING 90 Tablet 1 09/05/20 24 Active Azithromycin 250 MG Oral Tablet (Zithromax Z-Larry) Take two tablets by mouth on first day, then 1 tablet daily until gone 6 Tablet 09/11/20 24 Active documented as of this encounter (statuses as of 11/08/2024) Active Problems Problem Noted Date Diagnosed Date Superficial varicosities 05/08/2023 Age-related osteoporosis wit hout [...] as of this encounter (statuses as of 11/08/2024) Resolved Problems Problem Noted Date Diagnosed Date [...] as of this encounter (statuses as of 11/08/2024) Immunizations Name Administration Dates Next Due COVID-19 mRNA, LNP-s, No Pre serve, 2-Dose Series (Moderna) 12/28/2020,11/24/2020 COVID-19, mRNA, LNP-s, PF, B ooster, 100mcg/0.5mg (Moderna) 08/30/2021 Covid-19, Mrna, Lnp-s, Pf, B ivalent, 50 Mcg, IM, 12 yrs and above (Moderna) 08/08/2022 Pneumococcal Conjugate Vaccine, 20-valent (Prevn ar20) 11/07/2022 Seasonal Influenza, Quadrivalent Hd (Fluzone Hd) 11/17/2023,11/07/2022 [...] Department Care Team (Latest Contact Info) Description 11/11/2024 9:20 AM EST Office Visit General Internal Medicine [facility] [address] [place] [address] Laura Haq MD [address] [place] [id number] 11/25/2024 1:00 PM EST Hospital Encounter ENDO [facility], Endoscopy Room [facility] [address] [facility] [place] [phone] Lorene Ojeda MD [address] [place] [id number] 11/25/2024 1:00 PM EST - 11/25/2024 1:30 PM EST Surgery ENDO [facility], Endoscopy Room [facility] [address] [place] [phone] Lorene Ojeda MD [address] [place] [address] COLONOSCOPY FLEXIBLE PROXIMAL DIAGNOSTIC Pending Results Name Type Priority Associated Diagnoses Date /Time BASIC METABOLIC PANEL Lab Routine HTN, goal below 130/80 11/08/2024 8:31 AM EST HEMOGLOBIN A1C Lab Routine HTN, goal below 130/80 Prediabetes 11/08/2024 8:31 AM EST LIPID PANEL WITH DIRECT LDL IF TG IS HIGH Lab Routine Mixed dyslipidemia 11/08/2024 8:31 AM EST ALBUMIN / CREATININE RATIO, URINE Lab Routine HTN, goal below 130/80 11/08/2024 8:31 AM EST ALT Lab Routine Mixed dyslipidemia Fatty liver Elevated ALT measurement 11/08/2024 8:31 AM EST TSH WITH FREE T4 IF INDICATED Lab Routine Acquired hypothyroidism 11/08/2024 8:31 AM EST Scheduled Procedures Name Priority Associated Diagnoses Date/Ti me COLONOSCOPY FLEXIBLE PROXIMAL DIAGNOSTIC Recall Special screening for malignant neoplasms, colon 11/25/2024 1:00 PM EST Health Maintenance Due Date Last Done Comments [...] 2024 08/08/2022, 08/30/2021, 12/28/2020, Additional history exists Influenza Vaccine (FLU shot) (#1) 2024 11/17/2023, 11/07/2022 Depression Screening 11/09/2024 11/09/2023, 01/25/2016 (Discussed) DXA Scan 01/09/2025 01/09/2023 HbA1c 05/06/2025 05/06/2024, 0 05/2024, 05/03/2023, Additional history exists TSH 05/06/2025 05/06/2024, 0 05/2024, 05/03/2023, Additional history exists GFR 09/03/2025 09/03/2024, 0 05/2024, 11/06/2023, Additional history exists Mammogram 09/11/2025 09/11/2024, 3 10/2022, 11/19/2018, Additional history exists Albumin/Creatinine Ratio 11/06/2026 11/06/2023, 02/2022 Pneumococcal Vaccine: 50+ Years Completed 11/07/2022 VITAMIN D LEVEL ONCE IN A LIFETIME-USE SMARTSET# [id number] Completed 05/06/2024, 02/06/2023 HPV (Gardasil) Vaccine Aged Out No lo nger eligible based on patient's age to complete this topic Hepatitis B Vaccine Aged Out No longe r eligible based on patient's age to complete this topic MENINGOCOCCAL (MENACTRA/MENVEO) Aged Out No longer eligible based on patient's age to complete this topic documented as of this encounter Medical Devices Not on filedocumented as of this encounter Procedures Procedure Name Priority Date/Time Associated Diagnosis Comments DIFFERENTIAL, AUTOMATED Routine 11/08/2024 8:31 AM EST HTN, goal below 130/80 CBC Routine 11/08/2024 8:31 AM EST HTN, goal below 130/80 CBC Routine 11/08/2024 8:31 AM EST HTN, goal below 130/80 documented in this encounter Results * DIFFERENTIAL, AUTOMATED (11/08/2024 8:31 AM EST) WBC 7.14 4.00 - 10.80 K/uL 11/08/2024 8:47 AM EST [facility] 56-02 Neutrophils % 58.9 40.0 - 75.0 % 11/08/2024 8:47 AM EST [facility] 56-02 Lymphocytes % 28.4 18.0 - 42.0 % 11/08/2024 8:47 AM [facility] 56-02 Monocytes % 9.7 1.0 - 11.0 % 11/08/2024 8:47 AM [facility] 56-02 Eosinophils % 2.4 0.0 - 6.0 % 11/08/2024 8:47 AM [facility] 56-02 Basophils % 0.6 0.0 - 2.0 % 11/08/2024 8:47 AM [facility] 56-02 Absolute Neutrophils 4.21 1.80 - 7.70 K/uL 11/08/2024 8:47 AM [facility] 56-02 Absolute Lymphocytes 2.03 1.00 - 4.80 K/ul 11/08/2024 8:47 AM [facility] 56-02 Absolute Monocytes 0.69 0.00 - 1.10 K/uL 11/08/2024 8:47 AM [facility] 56-02 Absolute Eosinophils 0.17 0.00 - 0.70 K/uL 11/08/2024 8:47 AM [facility] 56-02 Absolute Basophils 0.04 0.00 - 0.20 K/uL 11/08/2024 8:47 AM [facility] 56-02 Blood Venous blood specimen / Unknown Venipuncture / Unknown 11/08/2024 8:31 AM EST 11/08/2024 8:31 AM EST us Laura Haq MD LAB BLOOD ORDERABLES Final Resul t [facility] [address] [place], [place] [id number] * CBC (11/08/2024 8:31 AM EST) WBC 7.14 4.00 - 10.80 K/uL 11/08/2024 8:47 AM [facility] 56-02 RBC 4.74 3.85 - 5.15 M/uL 11/08/2024 8:47 AM [facility] 56-02 HGB 14.3 12.0 - 15.3 g/dL 11/08/2024 8:47 AM [facility] 56-02 HCT 44.5 36.0 - 45.2 % 11/08/2024 8:47 AM [facility] 56- MCV 93.9 81.5 - 97.5 fL 11/08/2024 8:47 AM [facility] 56- MCH 30.2 27.0 - 34.0 pg 11/08/2024 8:47 AM [facility] 56- MCHC 32.1 32.0 - 36.0 g/dL 11/08/2024 8:47 AM [facility] 56- RDW 13.4 11.5 - 15.5 % 11/08/2024 8:47 AM [facility] 56- PLT 250 140 - 400 K/uL 11/08/2024 8:47 AM [facility] 56- MPV 10.8 6.6 - 11.1 fL 11/08/2024 8:47 AM [facility] 56- Blood Venous blood specimen / Unknown Venipuncture / Unknown 11/08/2024 8:31 AM EST 11/08/2024 8:31 AM EST us Laura Haq MD LAB BLOOD ORDERABLES Final Resul t [facility] [address] [facility] [address] documented in this encounter Visit Diagnoses Diagnosis HTN, goal below 130/80 Unspecified essential hypertension Prediabetes Other abnormal glucose Mixed dyslipidemia Mixed hyperlipidemia Fatty liver Other chronic nonalcoholic liver disease Elevated ALT measurement Nonspecific elevation of levels of transaminase or lactic acid dehydrogenase (LDH) Acquired hypothyroidism Unspecified hypothyroidism Special screening for malignant neoplasms, colon documented in this encounter Care Teams Carding Utility Tender Relationship Specialty Start Date End Date Laura Haq MD [address] [facility] [place] [address] PCP - General Internal Medicine 02/02/22 documented as of this encounter
--- OUTSIDE RECORDS SUMMARY | 2025-02-25 07:59 | External Medical Summary ---
Author Name Unknown Address Unknown Organization [id number][place] [place] [address] [facility] [address] Laboratory Report Ordering Provider Test Date Status BONNIE SCHOFIELD 11/08/2024 08:31:41 Final Observation Date Value Abnormality Reference (Units ) Status HbA1C 11/08/2024 08:31:41 6.3 Above high normal 4. 0-5.6 (%) Final The use of HbA1c to monitor glycemic status is based on normal hemoglobin and HbA composition. This test should not be used in patients with abnormal hemoglobin that affects the half life of the red blood cell or the in vivo glycation rates. Glucose, estimated average 11/08/2024 08:31:41 134 Above high normal <126 (mg/dL) Rajiv zee Performing Location [facility] [place] [address] [facility] [address]
--- OUTSIDE RECORDS SUMMARY | 2025-02-25 07:59 | External Medical Summary | Summary of Care ---
Author Name Unknown Organization [facility] Address [address] [place] [address] Phone [phone] Care Team Providers Care Vet Tech Name Role Phone Laura Haq MD Primary Care Provider [phone] Reason for Referral * (Within 10 days (routine)) - Authorized Specialty Diagnoses / Procedures Referred By Contac t Referred To Contact Radiology Diagnoses Elevated ALT measurement Procedures US ABDOMEN LIMITED Laura Haq MD [address] [facility] [place] [address] Phone: tel: fax: Referral ID Status Reason Start Date Expiration Date V isits Requested Visits Authorized [id number] Authorized 11/11/2024 999 999 Reason for Visit * Reason Comments Follow Up Encounter Details Date Type Department Care Team (Latest Contact Info) Description 11/11/2024 9:20 AM EST Office Visit General Internal Medicine Tatiana [facility]raft [place] [address] [place] [phone] Laura Haq MD [address] [place] [address] [id number] HTN, goal below 130/80*; PFO (patent foramen ovale); Left pontine CVA (HCC); Mixed dyslipidemia; Acquired hypothyroidism; Fatty liver; Elevated ALT measurement; Flu vaccine need; Obesity, Class I, BMI 30.0-34.9 (see actual BMI); Age-related osteoporosis without current pathological fracture; History of acute sinusitis; Prediabetes; Primary osteoarthritis of both knees; Microscopic hematuria; Postmenopausal atrophic vaginitis; Need for influenza vaccination; White coat syndrome with diagnosis of hypertension Allergies Active Allergy Reactions Criticality Noted Date Comments Aspirin 02/15/2022 H/o hives on excedrin yrs ago per pt Ibuprofen 03/31/2009 Penicillins 10/31/2000 Sulfa Antibiotics 10/04/2002 documented as of this encounter (statuses as of 11/11/2024) Medications Loratadine 10 MG Oral Tablet (Claritin)Indicati ons:Cellulitis of chest wall,Rash without hives Take 1 Tablet by mouth daily as needed (hives). x1-2 wks then as needed-otc 30 Tablet 5 09/16/20 21 Active Vitamin D (Cholecalciferol) 50 MCG (2000 UT) Oral CapsuleIndications :Age-related osteoporosis without current [...] 11/11/2024. 90 Tablet 3 11/11/19 25 Active Ezetimibe 10 MG Oral Tablet (Zetia)Indications :Left pontine CVA (HCC),Mixed dyslipidemia Take 1 Tablet by mouth in the morning. 90 Tablet 3 05/09/20 24 025 Discontin ued(Refil l) Cefdinir 300 MG Oral Capsule (Omnicef)Indicatio ns:Other acute recurrent sinusitis Take 1 Capsule by mouth in the morning and 1 Capsule before bedtime. Do all this for 10 days. 20 Capsule 07/14/20 24 025 Discontin ued(End of Procedure ) Cefdinir 300 MG Oral Capsule (Omnicef) Take 1 Capsule by mouth in the morning and 1 Capsule before bedtime. Do all this for 21 days. 42 Capsule 08/05/20 24 025 Discontin ued(End of Procedure ) Azithromycin 250 MG Oral Tablet (Zithromax Z-Larry) Take two tablets by mouth on first day, then 1 tablet daily until gone 6 Tablet 09/11/20 24 025 Discontin ued(End of Procedure ) documented as of this encounter (statuses as of 11/11/2024) Active Problems Problem Noted Date Diagnosed Date [...] as of this encounter (statuses as of 11/11/2024) Resolved Problems Problem Noted Date Diagnosed Date [...] as of this encounter (statuses as of 11/11/2024) Immunizations Name Administration Dates Next Due COVID-19 [...] on file documented as of this encounter Last Filed Vital Signs Vital Sign Reading Time Taken Comments Blood Pressure 156/78 11/11/2024 9:24 AM EST Pulse 74 11/11/2024 9:24 AM EST Temperature 36.4 °C (97.5 °F) 11/11/2024 9:24 AM ES T Respiratory Rate - - Oxygen Saturation 99% 11/11/2024 9:24 AM EST Inhaled Oxygen Concentration - - Weight 78.1 kg (172 lb 3.2 oz) 11/11/2024 9:24 A M EST Height - - Body Mass Index 29.54 09/11/2024 9:53 AM EST documented in this encounter Progress Notes * Laura Haq MD - 11/11/2024 9:27 AM EST SUBJECTIVE: Priya Church is a 66 year old female. Chief Complaint Patient presents with Follow Up Nursing Notes: Brit[facility] Shah, [facility] 11/11/24 0928 Signed Pt is here today for 6 month follow up pt is doing well pt would like to talk about flu vaccine HPI: 6 mth f/u Wt Readings from Last 8 Encounters: 11/11/24 172 lb 3.2 oz (78.1 kg) 09/11/24 166 lb 8 oz (75.5 kg) 09/03/24 169 lb 6.4 oz (76.8 kg) 07/31/24 170 lb 12.8 oz (77.5 kg) 06/18/24 174 lb 6.4 oz (79.1 kg) 05/09/24 174 lb 11.2 oz (79.2 kg) 02/19/24 173 lb (78.5 kg) 11/09/23 172 lb 4.8 oz (78.2 kg) BP Readings from Last 6 Encounters: 11/11/24 156/78 09/03/24 155/78 06/18/24 144/76 05/09/24 136/72 02/19/24 140/82 11/09/23 138/72 [employer] eval 02/02/22 PMH: Hypothyroidism, prediabetes, dyslipidemia, hypertension, obesity, fatty liver., seasonal allergies in the spring, superficial spider veins in her leg, without leg edema, asx bunion H/o hysterectomy 2nd uterine prolapse > rectocele repair July [address] Ying. S/P laparoscopic appendectomy for perforated appendicitis on 01/19/22 by Pavel ALMANZA acute lacunar infarct of the left aspect of the wilda 02/08/2022, started on Plavix, atorvastatin 80 mg Home BP 125-130/75-80>135-140/80 Chjjnkylfuj-zwtgqy-0/19/2014., -- is [place] 11/25/24 No DEXA on file, on VD 1k/d-- DEXA>01/09/23>>>-0.9/-2.1--HR - 10 yr FRAX 18/3.2%>- , pt will start reg exercise program, is taking Vd 2k/d, will check level in January.if changes mind will call to start alendronate. --she decided to hold off. VD 02/19=41 -05/22--still defers med. Dexa TBS Mammogram at [facility] negative October 2018, Neg 05/29/23=;M--09/11/2024 H/o hysterectomy; H/o rectocele repair, sometimes feeling incomplete evacuation-- Had f/u Radha- in January.-,had f/u 06/21-notes n/a and she will send Nonsmoker, rare use of alcohol, no drug use. 12/2021>CT A/P -enlarged and thickened appendix to 1.4 cm with surrounding inflammation in the cecum,-bladder and sigmoid area. -, --ac appendicitis; small hiatal hernia, hepatic steatosis, 2 x 4 mm nodules right lower lobe, patient states aware of this for many years. 02/07/22>hosp CVA> EKG-NSR at 88, nonspecific ST-T changes in lateral leads. Labs-normal CBC, CMP except sugar 150, Mg 2, troponin negative, UA concentrated. LDL 145, A1c 6.2%. Chest x-ray negative. CT head, neg CTA head and neck negative., apical emphysema MRI head-1.4 cm subacute lacunar infarct of the left aspect of the wilda. Evaluated by Neurology, started on Plavix 75 mg daily, atorvastatin 80 mg daily, history of hives with aspirin, Echo with bubble study positive for PFO. , EF >70%, Gr 1 DD, mild A sclerosis Hence Doppler of lower extremity negative for DVT, superficial thrombus in the right cephalic vein superior to the IV line.. 02/15/22-ZIO-NSR, no arrhythmia Seen 04/01/22 with sx xs fatigue. No abdominal pain, blood in the stool or black tarry stools. No chest pain or diaphoresis. No palpitations or dizziness.-only changed last hospitalization was increasing dose of atorvastatin, she denies any myalgia. Has not been sleeping properly due to worrying --stat labs-normal CK,CBC, CMP except sugar after lunch 204, borderline elevation of AST/ALT, A1c, LDL added on-6.2%, 71._dec statin 80mg4d/wk, 40mg 3d/wk 05/20--fatigue is much improved. Cardiology and neurology notes reviewed. No follow-up recommended. 10/2022--had granddtr born 6 wks premature and was in the NICU, she was taking care of other grand kids then. Is planning to go to [place] later this year and is worried about flying on the plane. Has been trying to work on diet and exercise but knows can do better. No chest pain palpitations shortness of breath or weakness or numbness of the extremities. Labs reviewed, after much discussion willing to increase atorvastatin back to 80 mg daily, repeat LDL, ALT in 3 months and remaining labs in 6 months. TSH slight trending slightly high but still within normal range had been taking biotin. She was taking it For hair growth states she does not feel she needs it anymore and will discontinue, will follow up with labs in 6 months. Inc atorvastatin to 80mg>improved LDL 05/22-LDL above goal, discussed options of changing atorvastatin to rosuvastatin 40 mg or addition of Zetia with continued low-cholesterol low carb diet, agreeable to start Zetia, did not st coq10 Sumanth chaudhari [facility] 11/23--LDL >70did not st zetia yet, willing to start -home blood pressure is normal, cardiac, respiratory, ENT rev of systems negative. c/o VV left leg--mild STS at ankles, no sig edema--sup VV on exam Defers vasc referral If edema/discomfort try otc compression socks H/o hysterectomy age 34 uterine prolapse; H/o rectocele repair 07/2020, sometimes feeling incomplete evacuation-- Had f/u Radha- in January. And had f/u 06/21-notes n/a and she will send 06/2146-HPK-[id number] vaginal mucosa, vaginal shortened due to surgery, rectocele repair intact H/o UTI- On 05/26/23-had called office with symptoms of UTI, urinalysis positive for infection, pharmacist had treated her with Macrobid >>culture added but not done then but done recently with the urinealbumin to creatinine ratio -and growing Klebsiella, she denies any UTI symptoms, will repeat UA. States on 10/17/2023 she had left-sided abdominal pain with chills, then felt better, did not have any GI or symptoms. 11/09/23 ur c/s + Klebiella-given Macrobid 11/27/23- UA positive for Klebsiella UTI, based on prior sensitivity start Cipro twice daily for 7 days. Continue stay well hydrated. Start Estrace cream 12/10/2023 as per prescription. 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 Has not had any symptoms of dysuria frequency or urgency or hematuria, no abdominal pain nausea vomiting or diarrhea. She is not sexually active, denies any vaginal discharge orbleeding. Had urinated about 1-1/2 hours ago, would hold off on repeating a urine unless she is having symptoms or in April with her next lab work. --exam- loss of rugations with atrophic vaginal mucosa, short and due to previous surgery, rectocele repair intact , No prolapse( 06/2184-[id number] vaginal mucosa, vaginal shortened due to surgery, rectocele repair intact) --hold off on starting Estrace unless she has another UTI, continue stay well hydrated, recommend doing Kegel exercises for symptoms of urgency 05/22-no symptoms of UTI, when she submitted urine sample she had urinated before coming into the office and was able to give only a small sample, urine culture is negative, urine was concentrated with few RBC, WBC and bacteria. Last CT abdomen and pelvis on 01/16/2022 reviewed, no abnormality of thekidney except for few parapelvic cysts slightly larger on the left. Willing to get ultrasound of the kidneys and repeat a urine after adequate hydration and clean-catch sample, if abnormal urine sediment persists will refer to Urology for evaluation. 11/23>.09/10/24--Renal ultrasound evaluation of microhematuria-multiple bilateral cysts in the region of the kidney-(also noted on CT 01/16/2022;) Largest right kidney measures 1.1 cm x 1.1 cm x 2.1cm and largest left kidney measures 2.3 cm x 1.5 cm x 1.9 cm. No kidney stones bladder was under distended -- repeat a urine as advised after adequate hydration and clean-catch sample, if abnormal urine sediment persists will refer to Urology for evaluation. --UA not sub yet 02/20 also complains of pain on the right lateral aspect of the hip for the last month, present on waking up or initially on getting up after sitting for a long time, symptoms improve with walking, nopain in the groin, no falls or injuries.- adv rx for GR Tr bursitis 05/22--saw ortho in February--was adv PT., sx better 11/23-- Saw [facility] 11/06/24---OA wero--is getting gel inj to Rt weekly 11/23--in 08/22 saw ent for ac sinusitis and dec hearing left and the n f/u DrPatel> treated withDoxy and Cefdinir x 2, completed Cefdinir 2 weeks ago. Had culture of sinus drainage and had H influ positive.pt was then prescribed cefdinit FOR 3 WEEKS at that time. Pt was advised ENT f/u in 3 weeks after the treatment. She also received prednisone. --had fu 09/22 given zpak and cxr nml--had left TM effusion--ct Claritin, nasacort did not help --no ear sx now 11/23--is leaving 12/05-08/23 with adult kids to [place] --will be in [place] december and January Rx Shingrix sent to the pharmacy 02/18; 05/21;11/22 Tdap due 2022--Rx sent 11/07/2022, 11/22 -discussed to get TDap and shingrix at 11/23 Had covid inf in jun 2023-mild sx. Discussed about covid booster, RSV vaccine Willing to get Flu vac today Immunization History Administered Date(s) Administered COVID-19 mRNA, LNP-s, No Preserve, 2-Dose Series (Moderna) 11/24/2020, 12/28/2020 COVID-19, mRNA, LNP-s, PF, Booster, 100mcg/0.5mg (Moderna) 08/30/2021 Covid-19, Mrna, Lnp-s, Pf, Bivalent, 50 Mcg, IM, 12 yrs and above (Moderna) 08/08/2022 Pneumococcal Conjugate Vaccine, 20-valent ([id number]) 11/07/2022 Seasonal Influenza, Quadrivalent Hd (Fluzone Hd) 11/07/2022, 11/17/2023 TDAP (age 10 and older)(Boostrix) 12/05/2012 Will stop biotin 11/07/2022 Discussed labs TSH Results: Lab Results Component Value Date/Time TSH - [facility] 2.17 11/08/2024 08:31 AM TSH - [facility] 1.22 05/06/2024 08:29 AM TSH - [facility] 3.21 11/06/2023 07:21 AM TSH - [facility] 1.59 11/26/2020 07:11 AM TSH - [facility] 2.28 11/13/2019 07:30 AM TSH - [facility] 1.68 02/04/2019 09:35 AM Hemoglobin AIC Results: Lab Results Component Value Date/Time HEMOGLOBIN A1C - [facility] 6.3 (H) 11/08/2024 08:31 AM HEMOGLOBIN A1C - [facility] 6.1 (H) 05/06/2024 08:29 AM HEMOGLOBIN A1C - [facility] 6.2 (H) 11/06/2023 07:21 AM HEMOGLOBIN A1C - [facility] 5.9 (H) 05/25/2020 10:23 AM HEMOGLOBIN A1C - [facility] 6.3 (H) 11/13/2019 07:30 AM HEMOGLOBIN A1C - [facility] 5.8 08/11/2015 07:56 AM alb /cr neg , nml cbc 11/22, alb cr neg 11/23 Hemoglobin Results: Lab Results Component Value Date/Time HGB 14.3 11/08/2024 08:31 AM HGB 13.8 09/03/2024 03:24 PM HGB 14.3 11/06/2023 07:21 AM HGB 14 02/10/2022 12:00 AM HGB 14.2 11/13/2019 07:30 AM HGB 14.9 02/04/2019 09:35 AM HGB 15.3 04/18/2018 12:00 AM HGB 14.4 04/16/2018 08:19 AM ALT Results: Lab Results Component Value Date/Time ALT - [facility] 55 (H) 11/08/2024 08:31 AM ALT - [facility] 26 09/03/2024 03:24 PM ALT - [facility] 41 (H) 05/06/2024 08:29 AM ALT - [facility] 19 08/05/2020 03:38 PM ALT - [facility] 26 02/04/2019 09:35 AM ALT - [facility] 33 04/16/2018 08:19 AM AST Results: Lab Results Component Value Date/Time AST - [facility] 25 09/03/2024 03:24 PM AST - [facility] 23 11/06/2023 07:21 AM AST - [facility] 23 11/02/2022 07:39 AM AST - [facility] 18 08/05/2020 03:38 PM AST - [facility] 18 02/04/2019 09:35 AM AST - [facility] 21 04/16/2018 08:19 AM Results for orders placed or performed in visit on 11/08/24 BASIC METABOLIC PANEL Result Value Ref Range BUN 20 6 - 20 mg/dL CREATININE 0.8 0.5 - 1.0 mg/dL EGFR 84 >=60 mL/min SODIUM 142 135 - 146 mmol/L POTASSIUM 4.3 3.5 - 5.1 mmol/L CHLORIDE 104 98 - 107 mmol/L CO2 26 22 - 32 mmol/L ANION GAP 12 7 - 15 mmol/L GLUCOSE 106 70 - 120 mg/dL CALCIUM 9.7 8.4 - 10.2 mg/dL HEMOGLOBIN A1C Result Value Ref Range Hemoglobin A1C 6.3 (H) 4.0 - 5.6 % Estimated Average Glucose 134 (H) <126 mg/dL LIPID PANEL WITH DIRECT LDL IF TG IS HIGH Result Value Ref Range Triglycerides 78 <=174 mg/dL Cholesterol 167 <200 mg/dL HDL Cholesterol 74 >49 mg/dL Non-HDL Cholesterol 93 <=159 mg/dL LDL Cholesterol 77 <=129 mg/dL ALBUMIN / CREATININE RATIO, URINE Result Value Ref Range Albumin, Random Urine <1.20 mg/dL Creatinine, Random Urine 66 mg/dL Albumin / Creatinine Ratio, Urine <18 <30 mg/g Creat ALT Result Value Ref Range ALT 55 (H) 10 - 35 U/L TSH WITH FREE T4 IF INDICATED Result Value Ref Range TSH 2.17 0.27 - 4.20 uIU/mL CBC Result Value Ref Range WBC 7.14 4.00 - 10.80 K/uL RBC 4.74 3.85 - 5.15 M/uL HGB 14.3 12.0 - 15.3 g/dL HCT 44.5 36.0 - 45.2 % MCV 93.9 81.5 - 97.5 fL MCH 30.2 27.0 - 34.0 pg MCHC 32.1 32.0 - 36.0 g/dL RDW 13.4 11.5 - 15.5 % PLT 250 140 - 400 K/uL MPV 10.8 6.6 - 11.1 fL DIFFERENTIAL, AUTOMATED Result Value Ref Range WBC 7.14 4.00 - 10.80 K/uL Neutrophils % 58.9 40.0 - 75.0 % Lymphocytes % 28.4 18.0 - 42.0 % Monocytes % 9.7 1.0 - 11.0 % Eosinophils % 2.4 0.0 - 6.0 % Basophils % 0.6 0.0 - 2.0 % Absolute Neutrophils 4.21 1.80 - 7.70 K/uL Absolute Lymphocytes 2.03 1.00 - 4.80 K/ul Absolute Monocytes 0.69 0.00 - 1.10 K/uL Absolute Eosinophils 0.17 0.00 - 0.70 K/uL Absolute Basophils 0.04 0.00 - 0.20 K/uL Patient Active Problem List Diagnosis Chronic rhinitis Acquired hypothyroidism Fatty liver Obesity, Class I, BMI 30.0-34.9 (see actual BMI) HTN, goal below 130/80 Seborrheic dermatitis Dermatitis of both ear canals Prediabetes Mixed dyslipidemia Bunion Left pontine CVA (HCC) PFO (patent foramen ovale) Age-related osteoporosis without current pathological fracture Superficial varicosities Current Outpatient Medications Medication Sig Dispense Refill amLODIPine Besylate 5 MG Oral Tablet (Norvasc) Take 1 Tablet by mouth in the morning. 90 Tablet 3 Atorvastatin Calcium 80 MG Oral Tablet (Lipitor) take 1 tablet by mouth every morning 90 Tablet 3 Azithromycin 250 MG Oral Tablet (Zithromax Z-Larry) Take two tablets by mouth on first day, then 1 tablet daily until gone 6 Tablet 0 Cefdinir 300 MG Oral Capsule (Omnicef) Take 1 Capsule by mouth in the morning and 1 Capsule before bedtime. Do all this for 10 days. 20 Capsule 0 Cefdinir 300 MG Oral Capsule (Omnicef) Take 1 Capsule by mouth in the morning and 1 Capsule before bedtime. Do all this for 21 days. 42 Capsule 0 Clopidogrel Bisulfate 75 MG Oral Tablet (pLAVix) TAKE 1 TABLET BY MOUTH EVERY DAY IN THE MORNING 90Tablet 1 Ezetimibe 10 MG Oral Tablet (Zetia) Take 1 Tablet by mouth in the morning. 90 Tablet 3 Hydrocortisone 2.5 % External Cream Apply to areas of redness on face nightly for 10 days, then only on weekends 30 g 1 Ketoconazole 2 % External Cream Apply to rash on face each morning 30 g 3 Ketoconazole 2 % External Shampoo (Nizoral) Lather into scalp three times per week in shower, then rinse 120 mL 11 Levothyroxine Sodium 100 MCG Oral Tablet (Levoxyl) TAKE 1 TABLET BY MOUTH EVERY MORNING 30 MINUTES BEFORE BREAKFAST OR OTHER MEDICATIONS 90 Tablet 3 Loratadine 10 MG Oral Tablet (Claritin) Take 1 Tablet by mouth daily as needed (hives). x1-2 wks then as needed-otc 30 Tablet 5 Ventolin HFA 108 (90 Base) MCG/ACT Inhalation Aerosol Solution Inhale 2 Puffs by mouth every 4 hours as needed for Wheezing. 18 g 2 Vitamin D (Cholecalciferol) 50 MCG (2000 UT) Oral Capsule Take by mouth. Zoster Vac Recomb Adjuvanted 50 MCG/0.5ML Intramuscular Suspension Reconstituted (Shingrix) Inject 0.5 mL into a large muscle now and repeat dose in 60 to 180 days 1 Each 1 No current facility-administered medications for this visit. Review of patient's allergies indicates: Allergen Reactions Aspirin H/o hives on excedrin yrs ago per pt Ibuprofen Penicillins Sulfa Antibiotics Social History Tobacco Use Smoking status: Never Smokeless tobacco: Never Vaping Use Vaping status: Never Used Substance Use Topics Alcohol use: Yes Comment: rare Drug use: No OBJECTIVE: BP 156/78 (BP Site: Left Arm, BP Position: Sitting) | Pulse 74 | Temp 97.5 °F (36.4 °C) | Wt 172 lb 3.2 oz (78.1 kg) | SpO2 99% | BMI 29.54 kg/m² | BSA 1.88 m² PHYSICAL EXAM: General: alert, healthy, no distress, well developed ENT-NML OP--no no narrowing of the oropharynx Neck: supple, no adenopathy, thyroid Not enlarged without nodularity Heart: regular rhythm and rate,No murmurs. Lungs: lungs clear to auscultation Extremities: no edema STS left ankle , Sup varicosities martin below medial knee and medal ankle Abdomen: Soft, non-tender, normal bowel sounds, no masses or organomegaly Neuro: alert, gait normal, motor normal ASSESSMENT/PLAN: HTN, goal below 130/80 (Primary) - BASIC METABOLIC PANEL; Future; Expected date: 05/11/2025 PFO (patent foramen ovale) Left pontine CVA (HCC) - LDL CHOLESTEROL (DIRECT MEASURE); Future; Expected date: 05/11/2025 - LDL CHOLESTEROL (DIRECT MEASURE); Future; Expected date: 02/09/2025 - Ezetimibe 10 MG Oral Tablet (Zetia); Take 1 Tablet by mouth in the morning. Start 11/11/2024. Mixed dyslipidemia - LDL CHOLESTEROL (DIRECT MEASURE); Future; Expected date: 05/11/2025 - LDL CHOLESTEROL (DIRECT MEASURE); Future; Expected date: 02/09/2025 - Ezetimibe 10 MG Oral Tablet (Zetia); Take 1 Tablet by mouth in the morning. Start 11/11/2024. Acquired hypothyroidism - TSH WITH FREE T4 IF INDICATED; Future; Expected date: 05/11/2025 Fatty liver - LDL CHOLESTEROL (DIRECT MEASURE); Future; Expected date: 02/09/2025 Elevated ALT measurement - US ABDOMEN LIMITED; Future; Expected date: 11/11/2024 - ALT; Future; Expected date: 05/11/2025 - LDL CHOLESTEROL (DIRECT MEASURE); Future; Expected date: 02/09/2025 Flu vaccine need Obesity, Class I, BMI 30.0-34.9 (see actual BMI) Age-related osteoporosis without current pathological fracture History of acute sinusitis Prediabetes - HEMOGLOBIN A1C; Future; Expected date: 05/11/2025 - BASIC METABOLIC PANEL; Future; Expected date: 05/11/2025 Primary osteoarthritis of both knees Microscopic hematuria Postmenopausal atrophic vaginitis --ct current meds, home BP better; -add zetia (did not st in May 22),Therapeutic lifestyle changes. - repeat urine after adequate hydration and clean-catch sample, if urine sediment persists refer toUrology., is not sexually active -Next DEXA scan in December, continue weight-bearing exercises has refused medications for osteoporosis. -Await colonoscopy this year. -Discussed vaccines due and when she gets it at the pharmacy to let us know so we can update the chart. 40 min total time spent with patient, time spent reviewing subspecialty notes, diagnostic studies done, follow-up orders/medication refills,over 1/2 time spent in counseling, coordinating care. Follow Up: Return in about 6 months (around 05/11/2025), or if symptoms worsen or fail to improve, for Return with Physician, Fasting Labs 2-5 Days Before Next Visit. | For: Return with Physician, Fasting Labs 2-5 Days Before Next Visit | Check-out note: -Urine soon, LDL 3 mths, other labs 6 mths - [place] dexa in january (This note was completed using the dictation program Fluency Direct. As such, there may be misspellings, word substitutions, or other variations that should not change the essence of the clinical content of this encounter note. If there is need for further clarification, please direct questions to the provider listed above.) Patient and / caregiver verbalizes understanding of above instructions and agrees with plan of care. Laura Haq MD 11/11/2024 documented in this encounter Nursing Notes * Britney Shah CCMA - 11/11/2024 9:23 AM EST Pt is here today for 6 month follow up pt is doing well pt would like to talk about flu vaccine documented in this encounter Plan of Treatment Upcoming Encounters Date Type Department Care Team (Latest Contact Info) Description 11/25/2024 1:00 PM EST Hospital Encounter [facility], Endoscopy Room [facility] [address] [place] [phone] Lorene Ojeda MD [address] [place] [id number] 11/25/2024 1:00 PM EST - 11/25/2024 1:30 PM EST Surgery ENDO [facility], Endoscopy Room [facility] [address] [place] [id number] Lorene Ojeda MD [address] [place] [id number] COLONOSCOPY FLEXIBLE PROXIMAL DIAGNOSTIC Scheduled Orders Name Type Priority Associated Diagnoses Orde r Schedule US ABDOMEN LIMITED Medical Imaging Routine Elevated ALT measurement Expected: 11/11/2024, Expires: 12/12/2025 TSH WITH FREE T4 IF INDICATED Lab Routine Acquired hypothyroidism Expected: 05/11/2025 (Approximate), Expires: 11/11/2025 ALT Lab Routine Elevated ALT measurement Expected: 05/11/2025 (Approximate), Expires: 11/11/2025 HEMOGLOBIN A1C Lab Routine Prediabetes Expected: 05/11/2025 (Approximate), Expires: 11/11/2025 LDL CHOLESTEROL (DIRECT MEASURE) Lab Routine Left pontine CVA (HCC) Mixed dyslipidemia Expected: 05/11/2025 (Approximate), Expires: 11/11/2025 BASIC METABOLIC PANEL Lab Routine HTN, goal below 130/80 Prediabetes Expected: 05/11/2025 (Approximate), Expires: 11/11/2025 LDL CHOLESTEROL (DIRECT MEASURE) Lab Routine Left pontine CVA (HCC) Mixed dyslipidemia Fatty liver Elevated ALT measurement Expected: 02/09/2025 (Approximate), Expires: 11/11/2025 Scheduled Procedures Name Priority Associated Diagnoses Date/Ti [...] 11/19/2018, Additional history exists GFR 11/08/2025 11/08/2024, 02/2024, 05/06/2024, Additional history exists HbA1c 11/08/2025 11/08/2024, 05/2024, 11/06/2023, Additional history exists TSH 11/08/2025 11/08/2024, 05/2024, 11/06/2023, Additional history exists Albumin/Creatinine Ratio 11/08/2027 025, 11/06/2023, 05/03/2022 Pneumococcal Vaccine: 50+ Years Completed 11/07/2022 VITAMIN D LEVEL ONCE IN A LIFETIME-USE SMARTSET# [id number] Completed 05/06/2024, 02/06/2023 Influenza Vaccine (FLU shot) [...] as of this encounter Visit Diagnoses Diagnosis HTN, goal below 130/80- Primary Unspecified essential hypertension PFO (patent foramen ovale) Ostium secundum type atrial septal defect Left pontine CVA (HCC) Unspecified cerebral artery occlusion with cerebral infarction Mixed dyslipidemia Mixed hyperlipidemia Acquired hypothyroidism Unspecified hypothyroidism Fatty liver Other chronic nonalcoholic liver disease Elevated ALT measurement Nonspecific elevation of levels of transaminase or lactic acid dehydrogenase (LDH) Flu vaccine need Need for prophylactic vaccination and inoculation against influenza Obesity, Class I, BMI 30.0-34.9 (see actual BMI) Obesity, unspecified Age-related osteoporosis without current pathological fracture Senile osteoporosis History of acute sinusitis Personal history of other diseases of respiratory system Prediabetes Other abnormal glucose Primary osteoarthritis of both knees Primary localized osteoarthrosis, lower leg Microscopic hematuria Postmenopausal atrophic vaginitis Need for influenza vaccination Need for prophylactic vaccination and inoculation against influenza White coat syndrome with diagnosis of hypertension Special screening for malignant neoplasms, colon documented in this encounter Care Teams Vet Tech Relationship Specialty Start Date End Date Laura Haq MD [address] [place] [place] [address] PCP - General Internal Medicine 02/02/22 documented as of this encounter"
--- OUTSIDE RECORDS SUMMARY | 2025-02-25 07:59 | External Medical Summary ---
Author Name Unknown Address Unknown Organization K09:[facility] [address] Laboratory Report Ordering Provider Test Date Status BONNIE SCHOFIELD 11/08/2024 08:31:41 Final Observation Date Value Abnormality Reference (Units ) Status WBC, Total 11/08/2024 08:31:41 7.14 4.00-10.8 0 (K/uL) Final RBC 11/08/2024 08:31:41 4.74 3.85-5.15 (M/uL) Final Hemoglobin 11/08/2024 08:31:41 14.3 12.0-15.3 (g/dL) Final HCT 11/08/2024 08:31:41 44.5 36.0-45.2 (%) Final MCV 11/08/2024 08:31:41 93.9 81.5-97.5 (fL) Final MCH 11/08/2024 08:31:41 30.2 27.0-34.0 (pg) Final MCHC 11/08/2024 08:31:41 32.1 32.0-36.0 (g/dL) Final RDW 11/08/2024 08:31:41 13.4 11.5-15.5 (%) Final Platelets 11/08/2024 08:31:41 250 140-400 (K /uL) Final MPV 11/08/2024 08:31:41 10.8 6.6-11.1 ( fL) Final Performing Location [facility] [address]
--- OUTSIDE RECORDS SUMMARY | 2025-02-25 07:59 | External Medical Summary ---
Author Name Unknown Address Unknown Organization K01:[facility] [place] [address] [facility] [address] Laboratory Report Ordering Provider Test Date Status BONNIE SCHOFIELD 11/08/2024 08:31:41 Final Observation Date Value Abnormality Reference (Units ) Status Triglyceride 11/08/2024 08:31:41 78 <=174 ( mg/dL) Final Triglyceride Reference Range s (mg/dL):
<150 Acceptable
150-174 Borderline high
175-499 High
>=500 Very high Cholesterol 11/08/2024 08:31:41 167 <200 (mg /dL) Final Total Cholesterol Reference Ranges (mg/dL):
<200 Desirable
200-239 Borderline high
>=240 High HDL 11/08/2024 08:31:41 74 >49 (mg/dL ) Final HDL Cholesterol Reference Ra nges (mg/dL):
>=60 High (Desirable)
<50 Low (Undesirable) For Females
<40 Low (Undesirable) For Males NON-HDL CHOLESTEROL 11/08/2024 08:31:41 93 <=159 (mg/dL) Final Non-HDL Cholesterol Referenc e Range (mg/dL):
<100 Target level for high risk ASCVD patient
<130 Optimal for general population
130-159 Near optimal for general population
160-189 Borderline High
190-219 High
>=220 Very High LDL, (calculated) 11/08/2024 08:31:41 77 <= 129 (mg/dL) Final LDL Cholesterol Reference Ra nges (mg/dL):
<70 Target level for high risk ASCVD patient
<100 Optimal for general population
100-129 Near optimal for general population
130-159 Borderline high
160-189 High
>=190 Very high Performing Location [facility] [place] [address] [facility] [address]
--- OUTSIDE RECORDS SUMMARY | 2025-02-25 07:59 | External Medical Summary ---
Author Name Unknown Address Unknown Organization K09:[facility] [address] Laboratory Report Ordering Provider Test Date Status BONNIE SCHOFIELD 11/08/2024 08:31:41 Final Observation Date Value Abnormality Reference (Units ) Status BUN 11/08/2024 08:31:41 20 6-20 (mg/dL) Final Creatinine 11/08/2024 08:31:41 0.8 0.5-1.0 (mg/dL) Final Glomerular filtration rate/1.73 sq M.predicted [Volume Rate/Area] in Serum, Plasma or Blood by Creatinine-based formula (CKD-EPI) 11/08/2024 08:31:41 84 >=60 (mL/min) Final eGFR is calculated based on the CKD-EPI 2020 equation. Sodium 11/08/2024 08:31:41 142 135-146 (m mol/L) Final Potassium 11/08/2024 08:31:41 4.3 3.5-5.1 (m mol/L) Final Cl 11/08/2024 08:31:41 104 98-107 (mm ol/L) Final CO2 11/08/2024 08:31:41 26 22-32 (mmo l/L) Final Anion gap 11/08/2024 08:31:41 12 7-15 (mmol /L) Final Glucose 11/08/2024 08:31:41 106 70-120 (mg /dL) Final Calcium 11/08/2024 08:31:41 9.7 8.4-10.2 ( mg/dL) Final Performing Location [facility] [address]
--- OUTSIDE RECORDS SUMMARY | 2025-02-25 07:59 | External Medical Summary ---
Author Name Unknown Address Unknown Organization K09:[facility] [place] [address] Laboratory Report Ordering Provider Test Date Status BONNIE SCHOFIELD 11/08/2024 08:31:41 Final Observation Date Value Abnormality Reference (Units ) Status ALT (Alanine aminotransferase) 11/08/2024 08:31:41 55 Above high normal 10-35 (U/L) Final Performing Location [facility] [place] [address]
--- OUTSIDE RECORDS SUMMARY | 2025-02-25 07:59 | External Medical Summary ---
Author Name Unknown Address Unknown Organization K09:[facility] [place] [address] Laboratory Report Ordering Provider Test Date Status BONNIE SCHOFIELD 11/08/2024 08:31:41 Final Observation Date Value Abnormality Reference (Units ) Status SYNC LEUKOCYTES IN BLOOD BY AUTOMATED COUNT 11/08/2024 08:31:41 7.14 4.00-10.80 (K/uL) Final Segs 11/08/2024 08:31:41 58.9 40.0-75.0 (%) Final Lymphs % 11/08/2024 08:31:41 28.4 18.0-42.0 (%) Final Monos 11/08/2024 08:31:41 9.7 1.0-11.0 (%) Final Eosinophils 11/08/2024 08:31:41 2.4 0.0-6.0 (%) Final Basos 11/08/2024 08:31:41 0.6 0.0-2.0 (%) Final Absolute Segs 11/08/2024 08:31:41 4.21 1.80-7.70 (K/uL) Final Lymphs, absolute 11/08/2024 08:31:41 2.03 1.00-4.80 (K/ul) Final Monos, Abs 11/08/2024 08:31:41 0.69 0.00-1.10 (K/uL) Final Eos, Abs 11/08/2024 08:31:41 0.17 0.00-0.70 (K/uL) Final Basos, Abs 11/08/2024 08:31:41 0.04 0.00-0.20 (K/uL) Final Performing Location [facility] [place] [address]
--- OUTSIDE RECORDS SUMMARY | 2025-02-25 07:59 | External Medical Summary | Continuity of Care Document ---
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 Name Role Phone Chon Santillan Primary Care Physician [phone] Encounter [facility] [id number] Date(s): 11/06/24 - 11/06/24 [facility] [address] [place], [place] [address]A [facility] [address] [place] [address] Encounter Diagnosis Bilateral primary osteoarthritis of knee(Discharge Diagnosis) - 11/06/24 Discharge Disposition: Home or Self Care Attending Physician: CRISTINO Ponce, Ludin Tariq Allergies, Adverse Reactions, Alerts Substance Criticality Severity [...] R knee. Please ship to physician's office: [facility] [place] [address], Stop: 11/27/24 12:07:00 PM EST, Pharmacy: [facility] Start Date: 11/06/24 Stop Date: 11/27/24 Status: Ordered hydrocortisone 2.5% topical cream Start: 01/08/19 5:09:00 PM EDT, See Instructions, Disp# 20 g, Refills: 1, Apply in a thin film to the affected skin at the eyebrows once daily as needed, do NOT apply to eyelashes, Pharmacy: [facility] Start Date: 01/08/19 Status: Ordered levothyroxine [...] 2, To red rash BID PRN, Pharmacy: [facility] Start Date: 07/31/17 Status: Ordered Vitamin D3 Start: 08/10/20 11:50:00 AM EDT, 2,000 Int_Unit =, PO, Daily Start Date: 08/10/20 Status: Ordered Mental Status 11/06/24 Barriers to Learning one year None evide nt Mandatory Health Literacy Documentation Yes Health Literacy Communication Barriers N ever Primary Language Arabic Problem List Condition Confirmation Course Effective Dates [...] Diagnosis Diagnosis Type Effective Dates Health Status Clinical Service Informant Bilateral primary osteoarthritis of knee Discharge Diagnosis 11/06/24 Procedures Procedure Date Related Diagnosis Body Site Status Posterior colporrhaphy 08/17/20 Co mpleted Hysterectomy 1 Completed [address] Social History Social History Type Response Smoking Status Never smoked cigaret yao Sex Female Sex Representation Female (finding) Patient Care team information Care Team Personnel Name: DO Santillan Shane D Position: Referring DIRECT Member Role: Primary Care Provider Address: [address] [place] [id number] Care Team Related Persons Name: VANCE LEAL
[2025-02-25] MEDS: SODIUM CHLORIDE 0.9% 1,000 ML IV STA (08:11)
[2025-02-25 08:22] LABS: Basophils # (auto) 0.05 K/uL (0.00-0.20); Basophils % (auto) 0.3 %; Eosinophils # (auto) 0.02 K/uL (0.00-0.50); Eosinophils % (auto) 0.1 %; Hematocrit (blood only) 42.1 % (37.0-47.0); Hemoglobin 14.7 g/dl (12.0-16.0); Immature Granulocytes # (auto) 0.09 K/uL (0.01-0.20); Immature Granulocytes % (auto) 0.5 %; Lymphocytes % (auto) 5.4 %; Mean Corpuscular Hemoglobin 30.6 pg (25.0-34.0); Mean Corpuscular Hgb Conc 34.9 g/dL (32.0-36.0); Mean Corpuscular Volume 87.5 fL (80.0-100.0); Mean Platelet Volume 10.6 fL (9.4-12.4); Monocytes # (auto) 1.24 K/uL (0.11-0.59); Monocytes % (auto) 7.5 %; Neutrophils # (auto) 14.24 K/uL (1.40-6.50); Neutrophils % (auto) 86.2 %; Platelet Count 240 K/uL (130-400); RDW Coefficient of Variation 13.2 % (11.5-14.5); RDW Standard Deviation 42.6 fL (36.4-46.3); Red Blood Count 4.81 M/uL (4.20-5.40); White Blood Count 16.54 K/ul (4.8-10.8)
[2025-02-25 08:41] LABS: Albumin Globulin Ratio 1.1 (0.9-2); Albumin Level 3.8 gm/dl (3.4-5.0); BUN Creatinine Ratio 29.5 (10-20); Bilirubin,Total 1.6 mg/dl (0.2-1.0); Calcium 8.9 mg/dl (8.6-10.3); Creatinine Clr Calc Pharmacy 62.6 ml/min; Globulin 3.5 gm/dl (2.5-4.0); Potassium 3.9 mmol/L (3.5-5.1); Total Protein 7.3 gm/dl (6.0-8.3)
[2025-02-25 08:48] LABS: Troponin I High Sensitivity 17.8 pg/ml (0-14)
[2025-02-25] MEDS: OPTIRAY 320 100ml IV ONE (09:14)
--- NOTE | 2025-02-25 09:22 | Emergency Department Note ---
Impression & Plan Acute calculous cholecystitis, Dilated cbd, acquired ED Provider Note NAME: EDILBERTO LEAL AGE: 69 SEX: F : 1955 ARRIVES VIA: Walk-In INFORMANT: Patient, ED PROVIDER(S): Waleska Collazo MD CHIEF COMPLAINT: Abdominal pain, food poisoning HPI: This is a 69-year-old female presenting for abdominal pain/food poisoning. Patient notes that on Monday night she began having signs of food poisoning with severe nausea and vomiting. She had 1 episode of diarrhea. She has had no diarrhea since then but has a persistent nausea. She has eaten only 5 minutes of water and bland foods. Has not really ate much food in this time. She states she feels extremely weak. She has pain in her epigastrium. She took Tums with only minimal relief. She is having persistent pain and nausea with vomiting ROS: See above HPI for pertinent positives & negatives. A total of 10 systems reviewed and were otherwise negative. PAST MEDICAL HISTORY: See Below PAST SURGICAL HISTORY: See Below FAMILY HISTORY: See Below SOCIAL HISTORY: See Below HOME MEDICATIONS: See Below ALLERGIES: See Below VITALS: See Below PHYSICAL EXAMINATION: General: resting comfortably in no acute distress Head: Normocephalic and atraumatic Eyes: Normal inspection, extraocular muscles intact Ear, nose, throat: Normal external exam Neck: Normal range of motion Respiratory: lungs clear to auscultation bilaterally Cardiovascular: Regular rate/rhythm, no murmur GI: Midepigastric abdominal pain Extremities: nontender, moves all extremities Neuro: The patient awake and alert, appropriately conversive, no focal deficits, symmetric faces Skin: Warm, dry, and intact MEDICAL DECISION MAKING: This is a 69-year-old female present for abdominal pain/food poisoning. Patient overall appears clinically well with reassuring vital signs. Initially tachycardic which has since improved. She has significant tender to the epigastric region. Will check basic blood work, LFTs and lipase. Will do CT imaging as a result of this pain that is persistent. Consider diverticulitis, SBO, cholecystitis. - Patient blood work is abnormal with a leukocytosis of 16.54. She has left wrist within normal limits. Her troponin is elevated at 17.8. -ECG independently interpreted by me with sinus tachycardia, rate of 111, normal axis, normal [place], normal QRS, normal QTc, no ST segment elevations consistent with STEMI criteria -The blood work does reveal signs of acute severe cholecystitis with cholelithiasis including 1.3 cm gallstone in the gallbladder neck. She also has biliary ductal dilation and a probable small 4 mm gallstone in the distal CBD. -Discussed care with [facility] for gastroenterology, under Dr. Thomas, who states they will evaluate for ERCP needs. -Discussed care with [facility] for general surgery, Dr. Mcginnis, who will evaluate for need for surgery. Recommend admission to hospitalist -Discussed with [facility] for hospitalist service under Dr. Ervin, for admission. - Patient ordered for ceftriaxone and Flagyl. -Will need the patient at this time Differential diagnosis: Gastroenteritis, cholecystitis, pancreatitis, SBO, bowel perforation, volvulus Independent History obtained from: Diagnostics interpreted by me: ECG: See above Cardiac Monitoring: An order was placed for continuous cardiac monitoring. The monitor shows a rate of 91 with sinus rhythm. Past Med/Surg History Problem List (Updated 02/25/25 @ 15:01 by Waleska Collazo MD) Dilated cbd, acquired (Acute) Acute calculous cholecystitis (Acute) Sepsis Cholelithiasis Dilation of biliary tract Cholecystitis Hypercholesteremia Prediabetes Hypothyroidism Hypertension (Acute) Medical History (Updated 02/25/25 @ 15:01 by Waleska Collazo MD) Urinary urgency Stroke Ambulatory dysfunction Lacunar infarct, acute Pulmonary nodule Hepatic steatosis Menopause Arthritis Encounter for pre-operative examination Abdominal pain Acute appendicitis Rectocele Surgical History S/P appy History of vaginal hysterectomy with anterior and posterior repair x 2, second in 07/2020 History of tonsillectomy H/O oral surgery Tooth extraction Family History Mother Lung cancer Hypothyroidism Father Diabetes Hypertension Sister Hypothyroidism Denies family history of Ovarian cancer Breast cancer Colorectal cancer Social History (Updated 02/25/25 @ 12:05 by SUSAN Arita) Smoking Status: Never smoker Second Hand Exposure: No; Do You Dip or Chew Tobacco: No; Hx Alcohol Use: No Hx Substance Use: No Preferred Language: Georgian Communication Ability: Effective Hire Car Driver Required: No Beliefs That Will Affect Care: None Current Living Situation: Spouse Current Living Situation Comment: Other Information That Helps Us Care for You: No Feels Safe at Home: Yes Safety Concerns: Feels Safe At This Time Assistive Devices: Contacts and Glasses Allergies Allergies Allergy/AdvReac Type Severity Reaction Status Date / Time ibuprofen Allergy Mild rash, hives Verified 06/19/23 13:26 Penicillins Allergy Mild rash, hives Verified 06/19/23 13:26 Sulfa (Sulfonamide Allergy Unknown rash, hives Verified 06/19/23 13:26 Antibiotics) aspirin Allergy Unknown Verified 06/19/23 13:26 Home Meds Home Medications Medication Instructions Recorded Confirmed amlodipine 5 mg tablet 5 mg PO QDL 02/25/20 02/25/25 biotin 1 mg capsule 1 mg PO HS 01/18/22 02/25/25 cholecalciferol (vitamin D3) 25 1,000 mcg PO QAM 01/18/22 02/25/25 mcg (1,000 unit) tablet (Vitamin D3) levothyroxine 100 mcg tablet 100 mcg PO DAILYBB 01/18/22 02/25/25 loratadine 10 mg tablet (Claritin) 10 mg PO DAILY PRN allergies 01/18/22 02/25/25 ezetimibe 10 mg tablet 10 mg PO DAILY 02/25/25 02/25/25 Previous Rx's Medication Instructions Recorded atorvastatin 40 mg tablet 80 mg (2 x 40 mg) PO QAM #60 tabs 02/10/22 clopidogrel 75 mg tablet 75 mg PO QAM #30 tabs 02/10/22 Results & Data (ED) Vital Signs Vital Signs - 24 hr 02/25/25 07:51 02/25/25 08:24 02/25/25 08:25 Temperature 37.0 C Temperature Source Oral Pulse Rate 122 H 91 H 92 H Pulse Rate from SpO2 Sensor 91 H Pulse Rhythm Regular Pulse Strength Normal Respiratory Rate 18 20 Respiratory Effort / Characteristics Non-Labored Spontaneous Respiratory Depth Normal Respiratory Pattern Regular Blood Pressure 148/85 H Blood Pressure Mean 106 Blood Pressure Position Sitting Pulse Oximetry 99 93 Oxygen Delivery Method Room Air Room Air Sepsis Recent Fever Within 48 Hours No Sepsis New/Unexplained Change in Mental Status N/A Sepsis Action Taken by Nursing No Action Required 02/25/25 08:42 02/25/25 09:00 02/25/25 09:00 Temperature Temperature Source Pulse Rate 89 87 Pulse Rate from SpO2 Sensor 88 86 Pulse Rhythm Pulse Strength Respiratory Rate 27 H 32 H Respiratory Effort / Characteristics Respiratory Depth Respiratory Pattern Blood Pressure 148/79 H Blood Pressure Mean 103 Blood Pressure Position Pulse Oximetry 93 93 Oxygen Delivery Method Room Air Room Air Sepsis Recent Fever Within 48 Hours Sepsis New/Unexplained Change in Mental Status Sepsis Action Taken by Nursing 02/25/25 09:30 02/25/25 09:30 02/25/25 09:45 Temperature Temperature Source Pulse Rate 81 80 Pulse Rate from SpO2 Sensor 81 81 Pulse Rhythm Pulse Strength Respiratory Rate 27 H 27 H Respiratory Effort / Characteristics Respiratory Depth Respiratory Pattern Blood Pressure 136/75 Blood Pressure Mean 102 Blood Pressure Position Pulse Oximetry 91 91 Oxygen Delivery Method Room Air Room Air Sepsis Recent Fever Within 48 Hours Sepsis New/Unexplained Change in Mental Status Sepsis Action Taken by Nursing 02/25/25 10:11 02/25/25 10:15 Temperature Temperature Source Pulse Rate 85 Pulse Rate from SpO2 Sensor 86 Pulse Rhythm Pulse Strength Respiratory Rate 25 H Respiratory Effort / Characteristics Respiratory Depth Respiratory Pattern Blood Pressure 169/88 H Blood Pressure Mean 128 Blood Pressure Position Pulse Oximetry 92 Oxygen Delivery Method Room Air Sepsis Recent Fever Within 48 Hours Sepsis New/Unexplained Change in Mental Status Sepsis Action Taken by Nursing Laboratory Data 02/25/25 08:05 02/25/25 08:05 Lab Results 02/25/25 Range/Units 08:05 WBC 16.54 H (4.8-10.8) K/ul RBC 4.81 (4.20-5.40) M/uL Hgb 14.7 (12.0-16.0) g/dl Hct 42.1 (37.0-47.0) % MCV 87.5 (80.0-100.0) fL MCH 30.6 (25.0-34.0) pg MCHC 34.9 (32.0-36.0) g/dL RDW Std Deviation 42.6 (36.4-46.3) fL RDW Coeff of Abilio 13.2 (11.5-14.5) % Plt Count 240 (130-400) K/uL MPV 10.6 (9.4-12.4) fL Immature Gran % (Auto) 0.5 % Neut % (Auto) 86.2 % Lymph % (Auto) 5.4 % Divide % (Auto) 7.5 % Eos % (Auto) 0.1 % Baso % (Auto) 0.3 % Neut # (Auto) 14.24 H (1.40-6.50) K/uL Lymph # (Auto) 0.90 L (1.20-3.40) K/uL Divide # (Auto) 1.24 H (0.11-0.59) K/uL Eos # (Auto) 0.02 (0.00-0.50) K/uL Baso # (Auto) 0.05 (0.00-0.20) K/uL Immature Gran # (Auto) 0.09 (0.01-0.20) K/uL Sodium 134 L (136-145) mmol/L Potassium 3.9 (3.5-5.1) mmol/L Chloride 101 (98-107) mmol/L Carbon Dioxide 23 (21-32) mmol/L Anion Gap 10 (3-11) BUN 26 H (6-23) mg/dl Creatinine 0.88 (0.6-1.2) mg/dl Est Cr Clr Drug Dosing 62.6 ml/min eGFR 70.65 BUN/Creatinine Ratio 29.5 H (10-20) Glucose 144 H (70-99(Fasting)) mg/dl Calcium 8.9 (8.6-10.3) mg/dl Total Bilirubin 1.6 H (0.2-1.0) mg/dl AST 27 (13-39) U/L ALT 24 (7-52) U/L Alkaline Phosphatase 65 (34-104) U/L Troponin I High Sens 17.8 H (0-14) pg/ml Total Protein 7.3 (6.0-8.3) gm/dl Albumin 3.8 (3.4-5.0) gm/dl Globulin 3.5 (2.5-4.0) gm/dl Albumin/Globulin Ratio 1.1 (0.9-2) Lipase 29 (11-82) U/L Administered Medications Sodium Chloride (Nss) 1,000 mls @ 75 mls/hr IV .[id number] [facility] Stop: 02/26/25 01:19 Last Admin: 02/25/25 13:35 Dose: 75 mls/hr Documented By: FRANCES Acetaminophen (Ofirmev) 1,000 mg in 100 mls @ 400 mls/hr IV Q8H PRN PRN Reason: Mild Pain (Scale 1, 2, 3) Stop: 02/28/25 11:50 Last Infusion: 02/25/25 14:17 Dose: Infused Documented By: Admin: 02/25/25 13:35 Dose: 400 mls/hr Documented By: FRANCES Discontinued Medications Sodium Chloride (Nss) 1,000 mls @ 999 mls/hr IV .Q1H1M STA Stop: 02/25/25 09:04 Last Infusion: 02/25/25 10:08 Dose: Infused Documented By: Admin: 02/25/25 08:11 Dose: 999 mls/hr Documented By: LIZBETH Ceftriaxone Sodium (Rocephin) 2,000 mg in 50 mls @ 100 mls/hr IV NOW STA Stop: 02/25/25 10:17 Last Infusion: 02/25/25 10:46 Dose: Infused Documented By: Admin: 02/25/25 10:08 Dose: 100 mls/hr Documented By: LIZBETH Metronidazole (Flagyl) 500 mg in 100 mls @ 100 mls/hr IV NOW STA; Protocol Stop: 02/25/25 11:31 Last Infusion: 02/25/25 11:46 Dose: Infused Documented By: Admin: 02/25/25 10:46 Dose: 100 mls/hr Documented By: LIZBETH Ioversol (Optiray 320 100ml) 94 ml IV ONCE ONE Stop: 02/25/25 09:14 Last Admin: 02/25/25 09:14 Dose: 94 ml Documented By: ANICETO Imaging Data Radiologist's Impression: Abdomen/Pelvis CT 02/25/25 08:58 CT SCAN OF THE ABDOMEN AND PELVIS WITH IV CONTRAST CLINICAL HISTORY: Abdominal pain and weakness. COMPARISON STUDY: CT of the abdomen and pelvis January 18, 2022. TECHNIQUE: Following the IV administration of 112 cc of Optiray 320, CT scan of the abdomen and pelvis is performed from the lung bases to the proximal femora. Images are reviewed in the axial, sagittal, and coronal planes. IV contrast was administered without complication. A dose lowering technique was utilized adhering to the principles of ALARA. CT DOSE: 1291.13 mGy.cm FINDINGS: Lung bases: The size of the heart is normal. There is no pericardial effusion. The lung bases are clear. Liver: The liver morphology is normal and there are no hepatic lesions. There is mild intra and extra hepatic biliary ductal dilatation. The common bile duct measures 1.2 cm in caliber. There is a probable small 4 mm calcified stone within the distal common bile duct and image 132 of 377 Gallbladder: The gallbladder is moderately distended. There is a 1.3 cm gallstone within the gallbladder neck. There is moderate gallbladder wall thickening with extensive pericholecystic inflammation. Spleen: Normal in size and attenuation. Pancreas: There are no pancreatic lesions. No pancreatic ductal dilatation is present. Adrenal glands: Unremarkable. Kidneys: There are no renal lesions. There is no hydronephrosis. The kidneys enhance symmetrically. There are bilateral renal parapelvic cysts. Abdominal vasculature: The caliber of the abdominal aorta is normal. Major vasculature is patent. Bowel: The caliber and wall thickness of small and large bowel are normal. Diverticula of the second portion the duodenum are present. Peritoneum: There is no intraperitoneal free air or abdominal ascites. Lymphadenopathy: None. Skeletal structures: No lytic or blastic lesions are seen. IMPRESSION: 1. Findings consistent with severe acute cholecystitis. Cholelithiasis, including a 1.3 cm gallstone within the gallbladder neck with moderate gallbladder wall thickening and pericholecystic inflammation. 2. Mild biliary ductal dilatation. Probable small 4 mm gallstone within the distal common bile duct. No CT evidence for acute pancreatitis. 3. Diverticula of the second portion of the duodenum. ACT 112: Negative or not required by law. Electronically signed by: Adria Garcia M.D. 02/25/2025 9:36 AM Discharge Plan Visit Data Chief Complaint: Abdominal Pain Stated Complaint: ABD PAIN, RECENT FOOD POISONING ED Provider: Waleska Collazo Discharge Problem: Acute calculous cholecystitis, Dilated cbd, acquired Patient Disposition: Admitted As Inpatient Discharge Instructions Interventions: ED Discharge Assessment Last Done: 02/25/25 13:31
--- NOTE | 2025-02-25 09:38 | CT Scan Report ---
CT SCAN OF THE ABDOMEN AND PELVIS WITH IV CONTRAST CLINICAL HISTORY: Abdominal pain and weakness. COMPARISON STUDY: CT of the abdomen and pelvis January 18, 2022. TECHNIQUE: Following the IV administration of 112 cc of Optiray 320, CT scan of the abdomen and pelv is is performed from the lung bases to the proximal femora. Images are reviewed in the axial, sagitta l, and coronal planes. IV contrast was administered without complication. A dose lowering technique w as utilized adhering to the principles of ALARA. CT DOSE: 1291.13 mGy.cm FINDINGS: Lung bases: The size of the heart is normal. There is no pericardial effusion. The lung bases are marcus ar. Liver: The liver morphology is normal and there are no hepatic lesions. There is mild intra and extra hepatic biliary ductal dilatation. The common bile duct measures 1.2 cm in caliber. There is a proba ble small 4 mm calcified stone within the distal common bile duct and image 132 of 377 Gallbladder: The gallbladder is moderately distended. There is a 1.3 cm gallstone within the gallblad sydnie neck. There is moderate gallbladder wall thickening with extensive pericholecystic inflammation. Spleen: Normal in size and attenuation. Pancreas: There are no pancreatic lesions. No pancreatic ductal dilatation is present. Adrenal glands: Unremarkable. Kidneys: There are no renal lesions. There is no hydronephrosis. The kidneys enhance symmetrically. T here are bilateral renal parapelvic cysts. Abdominal vasculature: The caliber of the abdominal aorta is normal. Major vasculature is patent. Bowel: The caliber and wall thickness of small and large bowel are normal. Diverticula of the second portion the duodenum are present. Peritoneum: There is no intraperitoneal free air or abdominal ascites. Lymphadenopathy: None. Skeletal structures: No lytic or blastic lesions are seen. IMPRESSION: 1. Findings consistent with severe acute cholecystitis. Cholelithiasis, including a 1.3 cm gallstone within the gallbladder neck with moderate gallbladder wall thickening and pericholecystic inflammatio n. 2. Mild biliary ductal dilatation. Probable small 4 mm gallstone within the distal common bile duct. No CT evidence for acute pancreatitis. 3. Diverticula of the second portion of the duodenum. ACT 112: Negative or not required by law. Electronically signed by: Adria Garcia M.D. 02/25/2025 9:36 AM
[2025-02-25] MEDS: cefTRIAXone SODIUM 2,000 MG/50 ML BAG IV STA (10:08)
[2025-02-25] MEDS: metroNIDAZOLE 500 MG/100 ML BAG IV STA (10:46)
--- NOTE | 2025-02-25 10:59 | History & Physical Report ---
Date of Service February 25, 2025 Assessment & Plan (1) Sepsis: (2) Cholecystitis: (3) Cholelithiasis: (4) Dilation of biliary tract: (5) Hypertension: (6) Hypothyroidism: (7) Hypercholesteremia: Plan 69 year old female with PMH significant for HTN, dyslipidemia, prediabetes, hypothyroidism, and history of CVA who presented to the ED this morning with abdominal pain since Monday and was found to have severe acute cholecystitis. Sepsis Patient meets criteria given leukocytosis, HRs >90, RRs >20 Continue MIVF and IV antibiotics as below Blood cultures pending Cholecystitis Cholelithiasis Dilation of biliary tract CT abdomen revealed severe acute cholecystitis; cholelithiasis with 1.3cm gallstone, moderate wall thickening, pericholecystic inflammation; mild biliary ductal dilatation with probable 4mm gallstone within common bile duct Received 1L NS in the ED, rocephin and flagyl Plan: -Continue MIVF at 75mL/hr -Continue Rocephin daily and Flagyl tid -Pain control with IV tylenol for mild and IV morphine for moderate to severe -IV zofran as needed for nausea -GI and surgery consulted: appreciate recs -NPO and holding plavix Elevated troponin Likely secondary to sepsis EKG without evidence of ischemia 17.8 and 20.6 Trend q6hr Hypertension Continue amlodipine per home dosing Hypothyroidism Continue levothyroxine per home dosing Hypercholesteremia Continue atorvastatin and zetia per home dosing History of CVA Holding Plavix until post procedure Patient with anxiety regarding post procedure anticoagulation because CVA occurred shortly after appendectomy and patient did not have post op anticoagulation DVT Prophylaxis: SCDs until post procedure Code Status: FULL CODE - As per discussion at bedside with the patient. PCP: Dr Laura Haq MD Disposition: admit to tele Patient seen in collaboration with Dr Ervin. Please see addendum. I spent a total of 75 minutes coordinating, documenting and providing care for this patient excluding time spent in the performance of separately billed services or time spent by another provider/QHP. Admission and Anticipated Discharge Date Admission Date: 02/25/2025 History of Present Illness Chief Complaint: abdominal pain Primary Care Provider: Laura Haq MD 69 year old female with PMH significant for HTN, dyslipidemia, prediabetes, hypothyroidism, and history of CVA who presented to the ED this morning with abdominal pain since Monday. Patient notes that she went out to eat on Monday and around 1914 had to [place] home with acute onset of vomiting and diarrhea. She attributed her symptoms to food poisoning but then developed severe RUQ pain that has been constant since Monday night. She rates the pain as 9/10 and notes it occasionally radiates to her back. She has associated nausea and chills but did not take her temperature to evaluate for fever. She has not vomited or had diarrhea since Monday evening. She reports profound fatigue and notes she was sleeping all day Monday and Monday. She has been eating a bland diet and re ports poor hydration. She denies chest pain, SOB, and dysuria. Allergies Allergy/AdvReac Type Severity Reaction Status Date / Time ibuprofen Allergy Mild rash, hives Verified 06/19/23 13:26 Penicillins Allergy Mild rash, hives Verified 06/19/23 13:26 Sulfa (Sulfonamide Allergy Unknown rash, hives Verified 06/19/23 13:26 Antibiotics) aspirin Allergy Unknown Verified 06/19/23 13:26 Home Medications Medication Instructions Recorded Confirmed Type amlodipine 5 mg tablet 5 mg PO QDL 02/25/20 02/25/25 History biotin 1 mg capsule 1 mg PO HS 01/18/22 02/25/25 History cholecalciferol (vitamin D3) 25 1,000 mcg PO QAM 01/18/22 02/25/25 History mcg (1,000 unit) tablet (Vitamin D3) levothyroxine 100 mcg tablet 100 mcg PO DAILYBB 01/18/22 02/25/25 History loratadine 10 mg tablet (Claritin) 10 mg PO DAILY PRN allergies 01/18/2201/29 History atorvastatin 40 mg tablet 80 mg (2 x 40 mg) PO QAM #60 tabs 02/10/22 02/25/25 Rx clopidogrel 75 mg tablet 75 mg PO QAM #30 tabs 02/10/22 02/25/25 Rx ezetimibe 10 mg tablet 10 mg PO DAILY 02/25/25 02/25/25 History Past Med/Surg History Problem List (Updated 02/25/25 @ 15:01 by Waleska Collazo MD) Dilated cbd, acquired (Acute) Acute calculous cholecystitis (Acute) Sepsis Cholelithiasis Dilation of biliary tract Cholecystitis Hypercholesteremia Prediabetes Hypothyroidism Hypertension (Acute) Medical History (Updated 02/25/25 @ 15:01 by Waleska Collazo MD) Urinary urgency Stroke Ambulatory dysfunction Lacunar infarct, acute Pulmonary nodule Hepatic steatosis Menopause Arthritis Encounter for pre-operative examination Abdominal pain Acute appendicitis Rectocele Surgical History S/P appy History of vaginal hysterectomy with anterior and posterior repair x 2, second in 07/2020 History of tonsillectomy H/O oral surgery Tooth extraction Family History Mother Lung cancer Hypothyroidism Father Diabetes Hypertension Sister Hypothyroidism Denies family history of Ovarian cancer Breast cancer Colorectal cancer Social History (Updated 02/25/25 @ 12:05 by SUSAN Arita) Smoking Status: Never smoker Second Hand Exposure: No; Do You Dip or Chew Tobacco: No; Hx Alcohol Use: No Hx Substance Use: No Preferred Language: Amharic Communication Ability: Effective 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 Beliefs That Will Affect Care: None Current Living Situation: Spouse Current Living Situation Comment: Other Information That Helps Us Care for You: No Feels Safe at Home: Yes Safety Concerns: Feels Safe At This Time Assistive Devices: Contacts and Glasses Review of Systems Review of Systems: All systems reviewed & are unremarkable except as noted in HPI & below Physical Exam Physical Exam: General/Psych: WD/WN, sitting up in bed, NAD, conversing easily, euthymic affect Head: normocephalic, atraumatic Eyes: normal inspection, PERRL, conjunctivae pink, anicteric sclerae ENT: external ear and nose normal, oropharynx normal Neck: normal visual inspection, trachea midline, no thyromegaly Respiratory: normal respiratory effort, lungs clear to auscultation, no wheeze/rales/rhonchi, no accessory muscle use Cardiovascular: regular rate and rhythm, no murmur/rub/gallop, no JVD Extremities: no cyanosis or clubbing, normal peripheral pulses, no BLE edema Abdomen/GI: normal bowel sounds, soft, tenderness on palpation of RUQ, +Angel sign Neurologic/MSK: A+Ox3, motor strength 5/5, moves all extremities Skin: no rashes, normal color, warm and dry Results & Data Results & Data Vital Signs (Past 12 Hours) Vital Signs Temp Pulse Resp BP Pulse Ox O2 Del Method 02/25/25 10:15 85 25 H 92 Room Air 02/25/25 10:11 169/88 H 02/25/25 09:45 80 27 H 91 Room Air 02/25/25 09:30 81 27 H 91 Room Air 02/25/25 09:30 136/75 02/25/25 09:00 87 32 H 93 Room Air 02/25/25 09:00 148/79 H 02/25/25 08:42 89 27 H 93 Room Air 02/25/25 08:25 92 H 02/25/25 08:24 91 H 20 93 Room Air 02/25/25 07:51 37.0 C 122 H 18 148/85 H 99 Room Air Laboratory Results Short CBC 02/25/25 Range/Units 08:05 WBC 16.54 H (4.8-10.8) K/ul Hgb 14.7 (12.0-16.0) g/dl Hct 42.1 (37.0-47.0) % Plt Count 240 (130-400) K/uL BMP 02/25/25 08:05 Sodium 134 L Potassium 3.9 Chloride 101 Carbon Dioxide 23 BUN 26 H Creatinine 0.88 Glucose 144 H Calcium 8.9 Liver Function 02/25/25 Range/Units 08:05 Total Bilirubin 1.6 H (0.2-1.0) mg/dl AST 27 (13-39) U/L ALT 24 (7-52) U/L Alkaline Phosphatase 65 (34-104) U/L Albumin 3.8 (3.4-5.0) gm/dl I have independently reviewed and interpreted patient's admitting labs including CBC, CMP, lipase and troponin. Diagnostic Findings Abdomen/Pelvis CT 02/25/25 08:58 CT SCAN OF THE ABDOMEN AND PELVIS WITH IV CONTRAST CLINICAL HISTORY: Abdominal pain and weakness. COMPARISON STUDY: CT of the abdomen and pelvis January 18, 2022. TECHNIQUE: Following the IV administration of 112 cc of Optiray 320, CT scan of the abdomen and pelvis is performed from the lung bases to the proximal femora. Images are reviewed in the axial, sagittal, and coronal planes. IV contrast was administered without complication. A dose lowering technique was utilized adhering to the principles of ALARA. CT DOSE: 1291.13 mGy.cm FINDINGS: Lung bases: The size of the heart is normal. There is no pericardial effusion. The lung bases are clear. Liver: The liver morphology is normal and there are no hepatic lesions. There is mild intra and extra hepatic biliary ductal dilatation. The common bile duct measures 1.2 cm in caliber. There is a probable small 4 mm calcified stone within the distal common bile duct and image 132 of 377 Gallbladder: The gallbladder is moderately distended. There is a 1.3 cm gallstone within the gallbladder neck. There is moderate gallbladder wall thickening with extensive pericholecystic inflammation. Spleen: Normal in size and attenuation. Pancreas: There are no pancreatic lesions. No pancreatic ductal dilatation is present. Adrenal glands: Unremarkable. Kidneys: There are no renal lesions. There is no hydronephrosis. The kidneys enhance symmetrically. There are bilateral renal parapelvic cysts. Abdominal vasculature: The caliber of the abdominal aorta is normal. Major vasculature is patent. Bowel: The caliber and wall thickness of small and large bowel are normal. Dive rticula of the second portion the duodenum are present. Peritoneum: There is no intraperitoneal free air or abdominal ascites. Lymphadenopathy: None. Skeletal structures: No lytic or blastic lesions are seen. IMPRESSION: 1. Findings consistent with severe acute cholecystitis. Cholelithiasis, including a 1.3 cm gallstone within the gallbladder neck with moderate gallbladder wall thickening and pericholecystic inflammation. 2. Mild biliary ductal dilatation. Probable small 4 mm gallstone within the distal common bile duct. No CT evidence for acute pancreatitis. 3. Diverticula of the second portion of the duodenum. ACT 112: Negative or not required by law. Electronically signed by: Adria Garcia M.D. 02/25/2025 9:36 AM ECG Additional Comments: I have independently reviewed and interpreted patient's admitting EKG which revealed: sinus tachycardia at a rate of 111bpm, QTc 405 Code Status & VTE Plan Code Status Full Code Supervising Physician Co-Signing Physician Notes Patient seen and examined independently. Discussed with above provider. Patient presents to the hospital with right upper quadrant pain. Findings suggestive of acute cholecystitis 2 with possible common bile duct stone. GI and surgery on consult for possible ERCP and laparoscopic cholecystectomy. Continue IV antibiotics, IV fluids, n.p.o. for midnight for possible ERCP. I have reviewed the advanced practitioner's documentation, and I agree with, and take responsibility for the plan of care I spent a total of 30 minutes coordinating, documenting, and providing care for this patient excluding time spent in the performance of separately billed services. All of the aforementioned completed while collaborating with the assigned advanced practitioner for a full treatment plan (5) Hypertension Hypertension type: unspecified Qualified Code(s): I10 - Essential (primary) hypertension
--- NOTE | 2025-02-25 11:01 | Gastrointestinal Consultation ---
Date of Consultation February 25, 2025 Assessment & Plan (1) Cholecystitis: 69 year old female with history HTN, hypothyroidism, hypothyroidism, lacunar infarct on Plavix admitted w/ abd pain, nausea/vomiting and chills since Monday. CT w/ severe acute cholecystitis, cholelithiasis, 1.3 cm gallstone within the gallbladder neck, biliary ductal dilation w/ CBD 1.2 cm and a probable small 4 mm gallstone within the distal common bile duct. - Maintain NPO status - Appreciate general surgery consultation - Will review CT w/ attending - MRCP vs ERCP - Risks, benefits, alternatives discussed - Hold Plavix - Agree w/ IV ABX - Trend LFTs I spent a total of 60 minutes on the date of service in review of patient's record, and previously obtained information in person and appropriate medical visit, discussion and education of plan, with patient and/or caregiver, placing orders for tests/referral/procedures as medically necessary and documentation of pertinent clinical information in patient's medical records for their visit today. We appreciate assistance in the management of any serological abn ormality and corrections to include: hemoglobin >7, INR <2, platelets >50,000, potassium levels >3.5 but <5.3, and sodium levels within 5 points of the reference range prior to endoscopic evaluation. (2) Dilation of biliary tract: Supervising Physician Co-Signing Physician Notes I saw and examined this patient with our nurse practitioner and agree with her assessment and plan. Clinical picture consistent with acute cholecystitis based on imaging and symptoms. Unlikely related to her initial symptoms of vomiting and diarrhea after eating out. Abnormal LFTs could be related to a common bile duct stone or extrinsic compression from her gallbladder. Will review CT scan and if CBD stone is confirmed we will proceed with ERCP in a.m. If imaging is equivocal will consider MRCP first. History of Present Illness Reason for Consultation: CBD dilation, cholecystitis Requesting Physician: Waleska Collazo MD Attending Physician: Waleska Collazo MD History of Present Illness 69 year old female with history HTN, hypothyroidism, hypothyroidism, lacunar infarct on Plavix admitted w/ abd pain, nausea/vomiting and chills since Monday. Pt was seen and evaluated, chart reviewed. Suggests she was w/ family at dinner when she developed abd pain, nausea/vomiting and diarrhea. At onset she believed her symptoms were infectious, however, nausea/vomiting and diarrhea resolved and abd pain w/ report of chills persisted. CT w/ severe acute cholecystitis, cholelithiasis, 1.3 cm gallstone within the gallbladder neck, biliary ductal dilation w/ CBD 1.2 cm and a probable small 4 mm gallstone within the distal common bile duct. Last dose of Plavix was 02/24 WBC 16.54 Tbili 1.6 AST 27 ALT 24 ALKP 65 Lipase 29 CTAP 2024: Findings consistent with severe acute cholecystitis. Cholelithiasis, including a 1.3 cm gallstone within the gallbladder neck with moderate gallbladder wall thickening and pericholecystic inflammation. Mild biliary ductal dilatation. Probable small 4 mm gallstone within the distal common bile duct. No CT evidence for acute pancreatitis. Allergies Allergy/AdvReac Type Severity Reaction Status Date / Time ibuprofen Allergy Mild rash, hives Verified 06/19/23 13:26 Penicillins Allergy Mild rash, hives Verified 06/19/23 13:26 Sulfa (Sulfonamide Allergy Unknown rash, hives Verified 06/19/23 13:26 Antibiotics) aspirin Allergy Unknown Verified 06/19/23 13:26 Home Medications Medication Instructions Recorded Confirmed Type amlodipine 5 mg tablet 5 mg PO QDL 02/25/20 02/25/25 History biotin 1 mg capsule 1 mg PO HS 01/18/22 02/25/25 History cholecalciferol (vitamin D3) 25 1,000 mcg PO QAM 01/18/22 02/25/25 History mcg (1,000 unit) tablet (Vitamin D3) levothyroxine 100 mcg tablet 100 mcg PO DAILYBB 01/18/22 02/25/25 History loratadine 10 mg tablet (Claritin) 10 mg PO DAILY PRN allergies 01/18/22 02/25/25 History atorvastatin 40 mg tablet 80 mg (2 x 40 mg) PO QAM #60 tabs 02/10/22 02/25/25 Rx clopidogrel 75 mg tablet 75 mg PO QAM #30 tabs 02/10/22 02/25/25 Rx ezetimibe 10 mg tablet 10 mg PO DAILY 02/25/25 02/25/25 History Patient History Medical History (Updated 02/25/25 @ 12:07 by SUSAN Arita) Urinary urgency Stroke Ambulatory dysfunction Lacunar infarct, acute Pulmonary nodule Hepatic steatosis Menopause Arthritis Encounter for pre-operative examination Abdominal pain Acute appendicitis Rectocele Surgical History S/P appy History of vaginal hysterectomy with anterior and posterior repair x 2, second in 07/2020 History of tonsillectomy H/O oral surgery Tooth extraction Family History Mother Lung cancer Hypothyroidism Father Diabetes Hypertension Sister Hypothyroidism Denies family history of Ovarian cancer Breast cancer Colorectal cancer Social History (Updated 02/25/25 @ 12:05 by SUSAN Arita) Smoking Status: Never smoker Second Hand Exposure: No; Do You Dip or Chew Tobacco: No; Hx Alcohol Use: No Hx Substance Use: No Preferred Language: Sinhala Communication Ability: Effective 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 Physical Exam Constitutional: WD/WN, vitals as above Respiratory: normal respiratory effort, lungs clear to auscultation Cardiovascular: RRR, no murmur, no edema Gastrointestinal (Abdomen): Inspection/Auscultation: normal bowel sounds Percussion/Palpation: + abdomen tender and abdomen soft; no guarding and abdomen not rigid Skin: no rashes, warm and dry Results & Data Vital Signs (Past 12 Hours) Vital Signs Temp Pulse Resp BP Pulse Ox O2 Del Method 02/25/25 10:15 85 25 H 92 Room Air 02/25/25 10:11 169/88 H 02/25/25 09:45 80 27 H 91 Room Air 02/25/25 09:30 81 27 H 91 Room Air 02/25/25 09:30 136/75 02/25/25 09:00 87 32 H 93 Room Air 02/25/25 09:00 148/79 H 02/25/25 08:42 89 27 H 93 Room Air 02/25/25 08:25 92 H 02/25/25 08:24 91 H 20 93 Room Air 02/25/25 07:51 98.6 F 122 H 18 148/85 H 99 Room Air Laboratory Results 02/25/25 Range/Units 08:05 WBC 16.54 H (4.8-10.8) K/ul RBC 4.81 (4.20-5.40) M/uL Hgb 14.7 (12.0-16.0) g/dl Hct 42.1 (37.0-47.0) % MCV 87.5 (80.0-100.0) fL MCH 30.6 (25.0-34.0) pg MCHC 34.9 (32.0-36.0) g/dL RDW Std Deviation 42.6 (36.4-46.3) fL RDW Coeff of Abilio 13.2 (11.5-14.5) % Plt Count 240 (130-400) K/uL MPV 10.6 (9.4-12.4) fL Immature Gran % (Auto) 0.5 % Neut % (Auto) 86.2 % Lymph % (Auto) 5.4 % [place] % (Auto) 7.5 % Eos % (Auto) 0.1 % Baso % (Auto) 0.3 % Neut # (Auto) 14.24 H (1.40-6.50) K/uL Lymph # (Auto) 0.90 L (1.20-3.40) K/uL [place] # (Auto) 1.24 H (0.11-0.59) K/uL Eos # (Auto) 0.02 (0.00-0.50) K/uL Baso # (Auto) 0.05 (0.00-0.20) K/uL Immature Gran # (Auto) 0.09 (0.01-0.20) K/uL Sodium 134 L (136-145) mmol/L Potassium 3.9 (3.5-5.1) mmol/L Chloride 101 (98-107) mmol/L Carbon Dioxide 23 (21-32) mmol/L Anion Gap 10 (3-11) BUN 26 H (6-23) mg/dl Creatinine 0.88 (0.6-1.2) mg/dl Est Cr Clr Drug Dosing 62.6 ml/min eGFR 70.65 BUN/Creatinine Ratio 29.5 H (10-20) Glucose 144 H (70-99(Fasting)) mg/dl Calcium 8.9 (8.6-10.3) mg/dl Total Bilirubin 1.6 H (0.2-1.0) mg/dl AST 27 (13-39) U/L ALT 24 (7-52) U/L Alkaline Phosphatase 65 (34-104) U/L Troponin I High Sens 17.8 H (0-14) pg/ml Total Protein 7.3 (6.0-8.3) gm/dl Albumin 3.8 (3.4-5.0) gm/dl Globulin 3.5 (2.5-4.0) gm/dl Albumin/Globulin Ratio 1.1 (0.9-2) Lipase 29 (11-82) U/L PG Care Time/CCT Total # of Minutes Spent Total Time Spent with Patient: Total time spent is greater than 50% in coordination of care (as documented) at patient's floor/unit and/or counseling patient: Coding Level of Care Code 32405 INT INP/OBS CARE MIN Diagnoses Cholecystitis K81.9 Dilation of biliary tract K83.8
[2025-02-25] MEDS ORDERED: MoRPHine SULFATE 2 MG/ML CARP IV PRN ×2 (11:51→17:18)
[2025-02-25] MEDS ORDERED: LORATADINE 10 MG TAB PO PRN (13:05)
[2025-02-25] MEDS: ACETAMINOPHEN 1,000 MG/100 ML VIAL IV PRN (13:35)
[2025-02-25] MEDS: SODIUM CHLORIDE 0.9% 1,000 ML IV SCH (13:35)
--- NOTE | 2025-02-25 16:52 | Surgery Consultation ---
Date of Consultation February 25, 2025 Assessment & Plan (1) Acute calculous cholecystitis: (2) Dilated cbd, acquired: 69 yo female with 4 day history of abdominal pain, nausea and vomiting thought secondary due food poisoning but RUQ pain persistent and CT scan showing severe acute cholecystitis with possible choledocholithiasis. WBC of 16k and t. bili slightly elevated. Abdominal examination with RUQ tenderness to palpation. No jaundice. Scheduled for ERCP tomorrow. Last dose of Plavix was yesterday. Discussed with patient given her severe cholecystitis, recent dose of plavix and 4 days of symptoms she would be at increased risk of surgical intervention at this time. Would like to cool gallbladder off and plan for outpatient cholecystectomy in 6 weeks pending ERCP findings tomorrow, clinical improvement of symptoms, improvement of leukocytosis and remains afebrile on IV abx. Would recommend at least 3 days of IV abx given severe cholecystitis on imaging. Will closely follow along. Continue medical management. Continue pain management as needed. Continue to hold Plavix for ERCP tomorrow. Okay for clears liquids then NPO after midnight. Dr. Reza has seen and examined pt, agrees with above. History of Present Illness Reason for Consultation: Acute calculous cholecystitis Requesting Physician: Emilio Ervin MD Attending Physician: Emilio Ervin MD History of Present Illness Priya is a 69 yo female with history of hypertension, hypothyroidism, pred iabetes, hypercholesterolemia, and stroke who presented to ED with increasing abdominal pain, in setting of nausea, vomiting, abdominal pain, and weakness that started on Monday after eating beef and chips. States she thought it was food poisoning as her son and daughter in law also had some similar symptoms but then she felt very weak and fatigued over weekend and then right upper abdominal pain increased in severity and did not improve. She is on Plavix for history of stroke 3 weeks after her appendectomy a few years ago. Last dose of Plavix was yesterday. Currently no vomiting but still having moderate amount of pain. Hard to change positions due to the pain. Gi has seen patient and plan for ERCP tomorrow. Allergies Allergy/AdvReac Type Severity Reaction Status Date / Time ibuprofen Allergy Mild rash, hives Verified 06/19/23 13:26 Penicillins Allergy Mild rash, hives Verified 06/19/23 13:26 Sulfa (Sulfonamide Allergy Unknown rash, hives Verified 06/19/23 13:26 Antibiotics) aspirin Allergy Unknown Verified 06/19/23 13:26 Home Medications Medication Instructions Recorded Confirmed Type amlodipine 5 mg tablet 5 mg PO QDL 02/25/20 02/25/25 History biotin 1 mg capsule 1 mg PO HS 01/18/22 02/25/25 History cholecalciferol (vitamin D3) 25 1,000 mcg PO QAM 01/18/22 02/25/25 History mcg (1,000 unit) tablet (Vitamin D3) levothyroxine 100 mcg tablet 100 mcg PO DAILYBB 01/18/22 02/25/25 History loratadine 10 mg tablet (Claritin) 10 mg PO DAILY PRN allergies 01/18/22 02/25/25 History atorvastatin 40 mg tablet 80 mg (2 x 40 mg) PO QAM #60 tabs 02/10/22 02/25/25 Rx clopidogrel 75 mg tablet 75 mg PO QAM #30 tabs 02/10/22 02/25/25 Rx ezetimibe 10 mg tablet 10 mg PO DAILY 02/25/25 02/25/25 History Patient History Medical History (Updated 02/25/25 @ 15:01 by Waleska Collazo MD) Urinary urgency Stroke Ambulatory dysfunction Lacunar infarct, acute Pulmonary nodule Hepatic steatosis Menopause Arthritis Encounter for pre-operative examination Abdominal pain Acute appendicitis Rectocele Surgical History S/P appy History of vaginal hysterectomy with anterior and posterior repair x 2, second in 07/2020 History of tonsillectomy H/O oral surgery Tooth extraction Family History Mother Lung cancer Hypothyroidism Father Diabetes Hypertension Sister Hypothyroidism Denies family history of Ovarian cancer Breast cancer Colorectal cancer Social History (Updated 02/25/25 @ 12:05 by SUSAN Arita) Smoking Status: Never smoker Second Hand Exposure: No; Do You Dip or Chew Tobacco: No; Hx Alcohol Use: No Hx Substance Use: No Preferred Language: Indonesian Communication Ability: Effective Caster Operator Required: No Beliefs That Will Affect Care: None Current Living Situation: Spouse Current Living Situation Comment: Other Information That Helps Us Care for You: No Feels Safe at Home: Yes Safety Concerns: Feels Safe At This Time Assistive Devices: Contacts and Glasses Review of Systems Review of Systems: All systems reviewed & are unremarkable except as noted in HPI & below Physical Exam Constitutional: WD/WN, vitals as above cooperative and comfortable; no acute distress and not ill appearing Respiratory: normal respiratory effort; no respiratory distress, no labored breathing and no retractions Gastrointestinal (Abdomen): Inspection/Auscultation: abdomen normal to inspection; abdomen not distended Percussion/Palpation: + abdomen tender (RUQ, positive [place]) and abdomen soft; no guarding, abdomen not rigid and abdomen not firm Skin: no rashes, warm and dry no jaundice Psychiatric: A+Ox3, euthymic affect Results & Data Vital Signs (Past 12 Hours) Vital Signs Temp Pulse Pulse Resp BP BP Pulse Ox 02/25/25 15:52 36.6 C 83 18 129/72 92 02/25/25 15:26 94 H 02/25/25 13:06 02/25/25 13:06 37.2 C 91 H 18 157/85 H 95 02/25/25 10:15 85 25 H 92 02/25/25 10:11 169/88 H 02/25/25 09:45 80 27 H 91 02/25/25 09:30 81 27 H 91 02/25/25 09:30 136/75 02/25/25 09:00 87 32 H 93 02/25/25 09:00 148/79 H 02/25/25 08:42 89 27 H 93 02/25/25 08:25 92 H 02/25/25 08:24 91 H 20 93 02/25/25 07:51 37.0 C 122 H 18 148/85 H 99 O2 Del Method 02/25/25 15:52 Room Air 02/25/25 15:26 02/25/25 13:06 Room Air 02/25/25 13:06 Room Air 02/25/25 10:15 Room Air 02/25/25 10:11 02/25/25 09:45 Room Air 02/25/25 09:30 Room Air 02/25/25 09:30 02/25/25 09:00 Room Air 02/25/25 09:00 02/25/25 08:42 Room Air 02/25/25 08:25 02/25/25 08:24 Room Air 02/25/25 07:51 Room Air Laboratory Results 02/25/25 02/25/25 Range/Units 12:15 08:05 WBC 16.54 H (4.8-10.8) K/ul RBC 4.81 (4.20-5.40) M/uL Hgb 14.7 (12.0-16.0) g/dl Hct 42.1 (37.0-47.0) % MCV 87.5 (80.0-100.0) fL MCH 30.6 (25.0-34.0) pg MCHC 34.9 (32.0-36.0) g/dL RDW Std Deviation 42.6 (36.4-46.3) fL RDW Coeff of Abilio 13.2 (11.5-14.5) % Plt Count 240 (130-400) K/uL MPV 10.6 (9.4-12.4) fL Immature Gran % (Auto) 0.5 % Neut % (Auto) 86.2 % Lymph % (Auto) 5.4 % [place] % (Auto) 7.5 % Eos % (Auto) 0.1 % Baso % (Auto) 0.3 % Neut # (Auto) 14.24 H (1.40-6.50) K/uL Lymph # (Auto) 0.90 L (1.20-3.40) K/uL [place] # (Auto) 1.24 H (0.11-0.59) K/uL Eos # (Auto) 0.02 (0.00-0.50) K/uL Baso # (Auto) 0.05 (0.00-0.20) K/uL Immature Gran # (Auto) 0.09 (0.01-0.20) K/uL Sodium 134 L (136-145) mmol/L Potassium 3.9 (3.5-5.1) mmol/L Chloride 101 (98-107) mmol/L Carbon Dioxide 23 (21-32) mmol/L Anion Gap 10 (3-11) BUN 26 H (6-23) mg/dl Creatinine 0.88 (0.6-1.2) mg/dl Est Cr Clr Drug Dosing 62.6 ml/min eGFR 70.65 BUN/Creatinine Ratio 29.5 H (10-20) Glucose 144 H (70-99(Fasting)) mg/dl Calcium 8.9 (8.6-10.3) mg/dl Total Bilirubin 1.6 H (0.2-1.0) mg/dl AST 27 (13-39) U/L ALT 24 (7-52) U/L Alkaline Phosphatase 65 (34-104) U/L Troponin I High Sens 20.6 H 17.8 H (0-14) pg/ml Total Protein 7.3 (6.0-8.3) gm/dl Albumin 3.8 (3.4-5.0) gm/dl Globulin 3.5 (2.5-4.0) gm/dl Albumin/Globulin Ratio 1.1 (0.9-2) Lipase 29 (11-82) U/L Diagnostic Findings CT SCAN OF THE ABDOMEN AND PELVIS WITH IV CONTRAST CLINICAL HISTORY: Abdominal pain and weakness. COMPARISON STUDY: CT of the abdomen and pelvis January 18, 2022. TECHNIQUE: Following the IV administration of 112 cc of Optiray 320, CT scan of the abdomen and pelvis is performed from the lung bases to the proximal femora. Images are reviewed in the axial, sagittal, and coronal planes. IV contrast was administered without complication. A dose lowering technique was utilized adhering to the principles of ALARA. CT DOSE: 1291.13 mGy.cm FINDINGS: Lung bases: The size of the heart is normal. There is no pericardial effusion. The lung bases are clear. Liver: The liver morphology is normal and there are no hepatic lesions. There is mild intra and extra hepatic biliary ductal dilatation. The common bile duct measures 1.2 cm in caliber. There is a probable small 4 mm calcified stone within the distal common bile duct and image 132 of 377 Gallbladder: The gallbladder is moderately distended. There is a 1.3 cm gallstone within the gallbladder neck. There is moderate gallbladder wall thickening with extensive pericholecystic inflammation. Spleen: Normal in size and attenuation. Pancreas: There are no pancreatic lesions. No pancreatic ductal dilatation is present. Adrenal glands: Unremarkable. Kidneys: There are no renal lesions. There is no hydronephrosis. The kidneys enhance symmetrically. There are bilateral renal parapelvic cysts. Abdominal vasculature: The caliber of the abdominal aorta is normal. Major vasculature is patent. Bowel: The caliber and wall thickness of small and large bowel are normal. Diverticula of the second portion the duodenum are present. Peritoneum: There is no intraperitoneal free air or abdominal ascites. Lymphadenopathy: None. Skeletal structures: No lytic or blastic lesions are seen. IMPRESSION: 1. Findings consistent with severe acute cholecystitis. Cholelithiasis, including a 1.3 cm gallstone within the gallbladder neck with moderate gallbladder wall thickening and pericholecystic inflammation. 2. Mild biliary ductal dilatation. Probable small 4 mm gallstone within the distal common bile duct. No CT evidence for acute pancreatitis. 3. Diverticula of the second portion of the duodenum. I personally reviewed CT scan images and agree with above findings
[2025-02-25] MEDS ORDERED: Nursing to Pharmacy Communication SCH (17:30)
[2025-02-25] MEDS: metroNIDAZOLE 500 MG/100 ML BAG IV SCH (18:15)
[2025-02-25 19:58] LABS: Appearance Urine Clear (Clear); Bacteria Urine Automated None Seen (None Seen); Bilirubin Urine Negative (Negative); Blood Urine 3+ (Negative); Cast Urine Automated 0-2 /lpf (0-2); Color Urine Dark Yellow; Epithelial Cell Urine Auto 0-2 /hpf (0-2); Glucose Urine UA Negative (Negative); Ketones Urine 1+ (Negative); Leukocyte Esterase Urine Negative (Negative); Nitrite Urine Positive (Negative); Protein Urine 1+ (Negative); RBC Urine Automated >20 /hpf (0-2); Specific Gravity Urine > 1.045 (1.000-1.030); Urobilinogen Urine Negative (Negative); WBC Urine Automated 0-5 /hpf (0-5); pH Urine 5.5 (4.5-7.5)
[2025-02-25] MEDS: ACETAMINOPHEN 1,000 MG/100 ML VIAL IV SCH (21:33)
[2025-02-26] MEDS: LEVOTHYROXINE SODIUM 100 MCG TABLET PO SCH (05:41)
[2025-02-26 06:20] LABS: Basophils # (auto) 0.06 K/uL (0.00-0.20); Basophils % (auto) 0.5 %; Eosinophils # (auto) 0.07 K/uL (0.00-0.50); Eosinophils % (auto) 0.5 %; Hemoglobin 12.1 g/dl (12.0-16.0); Immature Granulocytes # (auto) 0.08 K/uL (0.01-0.20); Immature Granulocytes % (auto) 0.6 %; Lymphocytes # (auto) 0.61 K/uL (1.20-3.40); Lymphocytes % (auto) 4.6 %; Mean Corpuscular Hemoglobin 29.5 pg (25.0-34.0); Mean Corpuscular Hgb Conc 33.6 g/dL (32.0-36.0); Mean Corpuscular Volume 87.8 fL (80.0-100.0); Mean Platelet Volume 10.5 fL (9.4-12.4); Monocytes % (auto) 9.8 %; Neutrophils # (auto) 11.08 K/uL (1.40-6.50); Platelet Count 199 K/uL (130-400); RDW Coefficient of Variation 13.4 % (11.5-14.5); RDW Standard Deviation 43.3 fL (36.4-46.3)
[2025-02-26 06:52] LABS: Albumin Globulin Ratio 1.1 (0.9-2); BUN Creatinine Ratio 21.9 (10-20); Bilirubin,Total 0.9 mg/dl (0.2-1.0); Calcium 7.9 mg/dl (8.6-10.3); Creatinine Clr Calc Pharmacy 84.4 ml/min; Globulin 2.7 gm/dl (2.5-4.0); Potassium 3.4 mmol/L (3.5-5.1); Total Protein 5.7 gm/dl (6.0-8.3)
--- NOTE | 2025-02-26 08:59 | Gastroenterology Progress Note ---
Date of Service February 26, 2025 Assessment & Plan (1) Cholecystitis: Plan: 69 year old female with history HTN, hypothyroidism, hypothyroidism, lacunar infarct on Plavix admitted w/ abd pain, nausea/vomiting and chills since Monday. CT w/ severe acute cholecystitis, cholelithiasis, 1.3 cm gallstone within the gallbladder neck, biliary ductal dilation w/ CBD 1.2 cm and a probable small 4 mm gallstone within the distal common bile duct. - Maintain NPO status for ERCP today - Risks, benefits, alternatives discussed - Indocin pre-procedure - Appreciate general surgery consultation - Hold Plavix - Agree w/ IV ABX - Trend LFTs We appreciate assistance in the management of any serological abnormality and corrections to include: hemoglobin >7, INR <2, platelets >50,000, potassium levels >3.5 but <5.3, and sodium levels within 5 points of the reference range prior to endoscopic evaluation. Thank you for allowing us to participate in the care of this patient. Please call with any acute changes, questions or concerns. Please see addendum below with additional recommendation from my supervising physician. (2) Dilation of biliary tract: Admission and Anticipated Discharge Date Admission Date: February 25, 2025 Supervising Physician Co-Signing Physician Notes I saw and examined this patient with our nurse practitioner and agree with her assessment and plan. Less pain today no fever hemodynamically stable. CT scan reviewed confirmed presence of a distal common bile duct stone approximately 4 mm. Will proceed with ERCP today. Subjective Pt was seen and evaluated, chart reviewed. Remains NPO for anticipated ERCP today. LFTs reviewed, improved. General surgery planning for OP CCY. ERCP discussed in details including risks/benefits. Questions answered. Review of Systems Review of Systems: All other findings negative except as noted in HPI. Physical Exam Constitutional: WD/WN, vitals as above Respiratory: normal respiratory effort, lungs clear to auscultation Cardiovascular: RRR, no murmur, no edema Gastrointestinal (Abdomen): normal bowel sounds, soft, nontender, no hepatosplenomegaly Skin: no rashes, warm and dry Results & Data Results & Data Vital Signs (Past 12 Hours) Vital Signs Temp Pulse Pulse Resp BP Pulse Ox O2 Del Method 02/26/25 07:18 98.2 F 75 18 120/74 98 Room Air 02/26/25 02:59 97.9 F 84 18 140/80 93 Room Air 02/25/25 22:35 97.9 F 97 H 18 138/72 92 Room Air 02/25/25 22:34 89 Laboratory Results 02/26/25 02/26/25 02/25/25 Range/Units 05:38 00:37 18:25 WBC 13.20 H (4.8-10.8) K/ul RBC 4.10 L (4.20-5.40) M/uL Hgb 12.1 (12.0-16.0) g/dl Hct 36.0 L (37.0-47.0) % MCV 87.8 (80.0-100.0) fL MCH 29.5 (25.0-34.0) pg MCHC 33.6 (32.0-36.0) g/dL RDW Std Deviation 43.3 (36.4-46.3) fL RDW Coeff of Abilio 13.4 (11.5-14.5) % Plt Count 199 (130-400) K/uL MPV 10.5 (9.4-12.4) fL Immature Gran % (Auto) 0.6 % Neut % (Auto) 84.0 % Lymph % (Auto) 4.6 % [place] % (Auto) 9.8 % Eos % (Auto) 0.5 % Baso % (Auto) 0.5 % Neut # (Auto) 11.08 H (1.40-6.50) K/uL Lymph # (Auto) 0.61 L (1.20-3.40) K/uL [place] # (Auto) 1.30 H (0.11-0.59) K/uL Eos # (Auto) 0.07 (0.00-0.50) K/uL Baso # (Auto) 0.06 (0.00-0.20) K/uL Immature Gran # (Auto) 0.08 (0.01-0.20) K/uL Sodium 137 (136-145) mmol/L Potassium 3.4 L (3.5-5.1) mmol/L Chloride 107 (98-107) mmol/L Carbon Dioxide 23 (21-32) mmol/L Anion Gap 7 (3-11) BUN 14 (6-23) mg/dl Creatinine 0.64 (0.6-1.2) mg/dl Est Cr Clr Drug Dosing 84.4 ml/min eGFR 95.01 BUN/Creatinine Ratio 21.9 H (10-20) Glucose 142 H (70-99(Fasting)) mg/dl Calcium 7.9 L (8.6-10.3) mg/dl Total Bilirubin 0.9 D (0.2-1.0) mg/dl AST 23 (13-39) U/L ALT 22 (7-52) U/L Alkaline Phosphatase 55 (34-104) U/L Troponin I High Sens 21.7 H 16.9 H (0-14) pg/ml Total Protein 5.7 L D (6.0-8.3) gm/dl Albumin 3.0 L (3.4-5.0) gm/dl Globulin 2.7 (2.5-4.0) gm/dl Albumin/Globulin Ratio 1.1 (0.9-2) Urine Color Urine Appearance (Clear) Urine pH (4.5-7.5) Ur Specific [place] (1.000-1.030) Urine Protein (Negative) Urine Glucose (UA) (Negative) Urine Ketones (Negative) Urine Blood (Negative) Urine Nitrite (Negative) Urine Bilirubin (Negative) Urine Urobilinogen (Negative) Ur Leukocyte Esterase (Negative) Urine WBC (Auto) (0-5) /hpf Urine RBC (Auto) (0-2) /hpf U Hyaline Cast (Auto) (0-2) /lpf U Epithel Cells (Auto) (0-2) /hpf Urine Bacteria (Auto) (None Seen) 02/25/25 02/25/25 Range/Units 18:15 12:15 WBC (4.8-10.8) K/ul RBC (4.20-5.40) M/uL Hgb (12.0-16.0) g/dl Hct (37.0-47.0) % MCV (80.0-100.0) fL MCH (25.0-34.0) pg MCHC (32.0-36.0) g/dL RDW Std Deviation (36.4-46.3) fL RDW Coeff of Abilio (11.5-14.5) % Plt Count (130-400) K/uL MPV (9.4-12.4) fL Immature Gran % (Auto) % Neut % (Auto) % Lymph % (Auto) % [place] % (Auto) % Eos % (Auto) % Baso % (Auto) % Neut # (Auto) (1.40-6.50) K/uL Lymph # (Auto) (1.20-3.40) K/uL [place] # (Auto) (0.11-0.59) K/uL Eos # (Auto) (0.00-0.50) K/uL Baso # (Auto) (0.00-0.20) K/uL Immature Gran # (Auto) (0.01-0.20) K/uL Sodium (136-145) mmol/L Potassium (3.5-5.1) mmol/L Chloride (98-107) mmol/L Carbon Dioxide (21-32) mmol/L Anion Gap (3-11) BUN (6-23) mg/dl Creatinine (0.6-1.2) mg/dl Est Cr Clr Drug Dosing ml/min eGFR BUN/Creatinine Ratio (10-20) Glucose (70-99(Fasting)) mg/dl Calcium (8.6-10.3) mg/dl Total Bilirubin (0.2-1.0) mg/dl AST (13-39) U/L ALT (7-52) U/L Alkaline Phosphatase (34-104) U/L Troponin I High Sens 20.6 H (0-14) pg/ml Total Protein (6.0-8.3) gm/dl Albumin (3.4-5.0) gm/dl Globulin (2.5-4.0) gm/dl Albumin/Globulin Ratio (0.9-2) Urine Color Dark Yellow Urine Appearance Clear (Clear) Urine pH 5.5 (4.5-7.5) Ur Specific [place] > 1.045 H (1.000-1.030) Urine Protein 1+ H (Negative) Urine Glucose (UA) Negative (Negative) Urine Ketones 1+ H (Negative) Urine Blood 3+ H (Negative) Urine Nitrite Positive A (Negative) Urine Bilirubin Negative (Negative) Urine Urobilinogen Negative (Negative) Ur Leukocyte Esterase Negative (Negative) Urine WBC (Auto) 0-5 (0-5) /hpf Urine RBC (Auto) >20 H (0-2) /hpf U Hyaline Cast (Auto) 0-2 (0-2) /lpf U Epithel Cells (Auto) 0-2 (0-2) /hpf Urine Bacteria (Auto) None Seen (None Seen) PG Care Time/CCT Total # of Minutes Spent Total Time Spent with Patient: Total time spent is greater than 50% in coordination of care (as documented) at patient's floor/unit and/or counseling patient: Coding Level of Care Code None Diagnoses Cholecystitis K81.9 Dilation of biliary tract K83.8
[2025-02-26] MEDS: ATORVASTATIN 40 MG TAB PO SCH (09:20)
[2025-02-26] MEDS: amLODIPine BESYLATE 5 MG TAB PO SCH (09:21)
[2025-02-26] MEDS: CHOLECALCIFEROL 25 MCG (1000 UNITS) TAB PO SCH (09:21)
[2025-02-26] MEDS: EZETIMIBE 10 MG TAB PO SCH (09:21)
--- NOTE | 2025-02-26 10:09 | Hospitalist Progress Note ---
Date of Service February 26, 2025 Assessment & Plan (1) Acute calculous cholecystitis: (2) Sepsis: (3) Choledocholithiasis with acute cholecystitis: (4) Prediabetes: (5) Hypothyroidism: (6) Hypertension: (7) History of stroke without residual deficits: (8) Hypokalemia: Plan Patient with acute sepsis due to acute calculus cholecystitis and possible choledocholithiasis. Continue antibiotics Reviewed GI consultation, anticipating ERCP today Reviewed surgical consultation anticipating treating with antibiotics and elective cholecystectomy in a few weeks Hold Plavix for ERCP. Would recommend resuming Plavix after ERCP if it is going to be multiple weeks until patient undergoes cholecystectomy. Would recommend that holding the Plavix 3 to 4 days prior to cholecystectomy. at bedside updated the plan of care. Both patient and agreeable. Continue other medications Replace potassium Admission and Anticipated Discharge Date Admission Date: February 25, 2025 Subjective Patient's pain is a little bit better. Able to ambulate around in the room. Anticipating ERCP today. Physical Exam Physical Exam: Constitutional: Alert, nontoxic HEENT: Mucous membranes moist. Lungs: Clear to auscultation, decreased, no wheezes rales or rhonchi CV: S1-S2, regular Abdomen: Soft, minimal right upper quadrant tenderness, no guarding, no rigidity, no distention Extremities: No significant edema Neuro: No focal deficits Psych: Cooperative, normal mood Results & Data Results & Data Vital Signs (Past 12 Hours) Vital Signs Temp Pulse Pulse Resp BP Pulse Ox O2 Del Method 02/26/25 07:18 36.8 C 75 18 120/74 98 Room Air 02/26/25 02:59 36.6 C 84 18 140/80 93 Room Air 02/25/25 22:35 36.6 C 97 H 18 138/72 92 Room Air 02/25/25 22:34 89 Diagnostic Findings Reviewed imaging, laboratory and diagnostic studies. Pertinent findings as belo w. WBCs 13.2, improved Hemoglobin 12.1 199 Platelets potassium 3.4 Creatinine 0.64 Glucose 142 (6) Hypertension Hypertension type: unspecified Qualified Code(s): I10 - Essential (primary) hypertension
[2025-02-26] MEDS: cefTRIAXone SODIUM 2,000 MG/50 ML BAG IV SCH (10:16)
[2025-02-26] MEDS: POTASSIUM CHLORIDE CRTAB 20 MEQ TABCR PO STA (10:30)
[2025-02-26] MEDS: NSS + 20MEQ KCL 20 MEQ/1,000 ML BAG IV SCH (10:30)
[2025-02-26] MEDS: ONDANSETRON INJ 2 MG/ML 2 ML VIAL IV PRN (10:36)
--- NOTE | 2025-02-26 11:56 | Surgery Progress Note ---
Date of Service February 26, 2025 Assessment & Plan (1) Acute calculous cholecystitis: (2) Dilated cbd, acquired: Plan: 69 yo female with 4 day history of abdominal pain, nausea and vomiting thought secondary due food poisoning but RUQ pain persistent and CT scan showing severe acute cholecystitis with possible choledocholithiasis. WBC of 16k and t. bili slightly elevated. Abdominal examination with RUQ tenderness to palpation. No jaundice. Last dose of Plavix was Monday. Discussed with patient given her severe cholecystitis, recent dose of plavix and 4 days of symptoms she would be at increased risk of surgical intervention at this time. Would like to cool gallbladder off and plan for outpatient cholecystectomy in 6 weeks pending ERCP findings tomorrow, clinical improvement of symptoms, improvement of leukocytosis and remains afebrile on IV abx. Would recommend at least 3 days of IV abx given severe cholecystitis on imaging. 02/26/2025 avss leukocytosis improved to 13k (16K) abdominal pain improving no n,v Plan: Await ERCP findings today Continue IV abx Continue medical management. Continue pain management as needed. Continue to hold Plavix for ERCP today. Will closely follow along. Dr. Reza has seen and examined pt, agrees with above. Admission and Anticipated Discharge Date Admission Date: February 25, 2025 Subjective feeling better today pain is improving, able to ambulate and move around more no fevers, or chills no n,v hungry going for ERCP today Physical Exam Constitutional: WD/WN, vitals as above cooperative and comfortable; no acute distress and not ill appearing Respiratory: normal respiratory effort; no respiratory distress, no labored breathing and no retractions Gastrointestinal (Abdomen): Inspection/Auscultation: abdomen normal to inspection; abdomen not distended Percussion/Palpation: + abdomen tender (RUQ on deep palpation) and abdomen soft; no guarding, abdomen not rigid and abdomen not firm Skin: no rashes, warm and dry no jaundice Psychiatric: A+Ox3, euthymic affect Results & Data Vital Signs (Past 12 Hours) Vital Signs Temp Pulse Resp BP Pulse Ox O2 Del Method 02/26/25 11:10 37.4 C 74 17 123/60 93 Room Air 02/26/25 07:18 36.8 C 75 18 120/74 98 Room Air 02/26/25 02:59 36.6 C 84 18 140/80 93 Room Air Laboratory Results 02/26/25 02/26/25 02/25/25 Range/Units 05:38 00:37 18:25 WBC 13.20 H (4.8-10.8) K/ul RBC 4.10 L (4.20-5.40) M/uL Hgb 12.1 (12.0-16.0) g/dl Hct 36.0 L (37.0-47.0) % MCV 87.8 (80.0-100.0) fL MCH 29.5 (25.0-34.0) pg MCHC 33.6 (32.0-36.0) g/dL RDW Std Deviation 43.3 (36.4-46.3) fL RDW Coeff of Abilio 13.4 (11.5-14.5) % Plt Count 199 (130-400) K/uL MPV 10.5 (9.4-12.4) fL Immature Gran % (Auto) 0.6 % Neut % (Auto) 84.0 % Lymph % (Auto) 4.6 % [place] % (Auto) 9.8 % Eos % (Auto) 0.5 % Baso % (Auto) 0.5 % Neut # (Auto) 11.08 H (1.40-6.50) K/uL Lymph # (Auto) 0.61 L (1.20-3.40) K/uL [place] # (Auto) 1.30 H (0.11-0.59) K/uL Eos # (Auto) 0.07 (0.00-0.50) K/uL Baso # (Auto) 0.06 (0.00-0.20) K/uL Immature Gran # (Auto) 0.08 (0.01-0.20) K/uL Sodium 137 (136-145) mmol/L Potassium 3.4 L (3.5-5.1) mmol/L Chloride 107 (98-107) mmol/L Carbon Dioxide 23 (21-32) mmol/L Anion Gap 7 (3-11) BUN 14 (6-23) mg/dl Creatinine 0.64 (0.6-1.2) mg/dl Est Cr Clr Drug Dosing 84.4 ml/min eGFR 95.01 BUN/Creatinine Ratio 21.9 H (10-20) Glucose 142 H (70-99(Fasting)) mg/dl Calcium 7.9 L (8.6-10.3) mg/dl Total Bilirubin 0.9 D (0.2-1.0) mg/dl AST 23 (13-39) U/L ALT 22 (7-52) U/L Alkaline Phosphatase 55 (34-104) U/L Troponin I High Sens 21.7 H 16.9 H (0-14) pg/ml Total Protein 5.7 L D (6.0-8.3) gm/dl Albumin 3.0 L (3.4-5.0) gm/dl Globulin 2.7 (2.5-4.0) gm/dl Albumin/Globulin Ratio 1.1 (0.9-2) Urine Color Urine Appearance (Clear) Urine pH (4.5-7.5) Ur Specific [place] (1.000-1.030) Urine Protein (Negative) Urine Glucose (UA) (Negative) Urine Ketones (Negative) Urine Blood (Negative) Urine Nitrite (Negative) Urine Bilirubin (Negative) Urine Urobilinogen (Negative) Ur Leukocyte Esterase (Negative) Urine WBC (Auto) (0-5) /hpf Urine RBC (Auto) (0-2) /hpf U Hyaline Cast (Auto) (0-2) /lpf U Epithel Cells (Auto) (0-2) /hpf Urine Bacteria (Auto) (None Seen) 02/25/25 02/25/25 Range/Units 18:15 12:15 WBC (4.8-10.8) K/ul RBC (4.20-5.40) M/uL Hgb (12.0-16.0) g/dl Hct (37.0-47.0) % MCV (80.0-100.0) fL MCH (25.0-34.0) pg MCHC (32.0-36.0) g/dL RDW Std Deviation (36.4-46.3) fL RDW Coeff of Abilio (11.5-14.5) % Plt Count (130-400) K/uL MPV (9.4-12.4) fL Immature Gran % (Auto) % Neut % (Auto) % Lymph % (Auto) % [place] % (Auto) % Eos % (Auto) % Baso % (Auto) % Neut # (Auto) (1.40-6.50) K/uL Lymph # (Auto) (1.20-3.40) K/uL [place] # (Auto) (0.11-0.59) K/uL Eos # (Auto) (0.00-0.50) K/uL Baso # (Auto) (0.00-0.20) K/uL Immature Gran # (Auto) (0.01-0.20) K/uL Sodium (136-145) mmol/L Potassium (3.5-5.1) mmol/L Chloride (98-107) mmol/L Carbon Dioxide (21-32) mmol/L Anion Gap (3-11) BUN (6-23) mg/dl Creatinine (0.6-1.2) mg/dl Est Cr Clr Drug Dosing ml/min eGFR BUN/Creatinine Ratio (10-20) Glucose (70-99(Fasting)) mg/dl Calcium (8.6-10.3) mg/dl Total Bilirubin (0.2-1.0) mg/dl AST (13-39) U/L ALT (7-52) U/L Alkaline Phosphatase (34-104) U/L Troponin I High Sens 20.6 H (0-14) pg/ml Total Protein (6.0-8.3) gm/dl Albumin (3.4-5.0) gm/dl Globulin (2.5-4.0) gm/dl Albumin/Globulin Ratio (0.9-2) Urine Color Dark Yellow Urine Appearance Clear (Clear) Urine pH 5.5 (4.5-7.5) Ur Specific [place] > 1.045 H (1.000-1.030) Urine Protein 1+ H (Negative) Urine Glucose (UA) Negative (Negative) Urine Ketones 1+ H (Negative) Urine Blood 3+ H (Negative) Urine Nitrite Positive A (Negative) Urine Bilirubin Negative (Negative) Urine Urobilinogen Negative (Negative) Ur Leukocyte Esterase Negative (Negative) Urine WBC (Auto) 0-5 (0-5) /hpf Urine RBC (Auto) >20 H (0-2) /hpf U Hyaline Cast (Auto) 0-2 (0-2) /lpf U Epithel Cells (Auto) 0-2 (0-2) /hpf Urine Bacteria (Auto) None Seen (None Seen)
[2025-02-26] MEDS ORDERED: ONDANSETRON INJ 2 MG/ML 2 ML VIAL ONE (13:39)
[2025-02-26] MEDS ORDERED: LIDOCAINE 2% 2 ML VIAL/AMP(20MG/ML) INFIL ONE (13:39)
[2025-02-26] MEDS ORDERED: ROCURONIUM BROMIDE 10 MG/ML 5 ML VIAL IV ONE (13:39)
[2025-02-26] MEDS ORDERED: SUGAMMADEX SODIUM 200 MG/2 ML VIAL IV ONE (13:39)
[2025-02-26] MEDS ORDERED: DEXAMETHASONE SOD INJ 4 MG/ML VIAL ONE (13:39)
[2025-02-26] MEDS ORDERED: fentaNYL citrate PF 100 MCG/2 ML VIAL ONE ×2 (13:39→14:49)
[2025-02-26] MEDS ORDERED: MIDAZOLAM HCL 1 MG/ML 2ML VIAL ONE (13:39)
[2025-02-26] MEDS ORDERED: PROPOFOL IV EMULSION 10 MG/ML 20 ML VIAL IV ONE (13:39)
--- NOTE | 2025-02-26 13:51 | Anesthesiology Consultation ---
Date of Service February 26, 2025 Assessment & Plan ASA ASA3 Proposed Anesthesia Anesthesia Type: General Risk / Benefits Reviewed With: PT / POA / Parent / Guardian, Accepts Plan and Informed Consent Obtained History Surgery Operation Date: 02/26/25 07:00 Proposed Procedures p Endoscopic Retrograde Cholangiopancreatogram - Manolo Thomas MD Height/Weight Height: 5 ft 6 in Weight: 74.5 kg Allergies Allergy/AdvReac Type Severity Reaction Status Date / Time ibuprofen Allergy Mild rash, hives Verified 06/19/23 13:26 Penicillins Allergy Mild rash, hives Verified 06/19/23 13:26 Sulfa (Sulfonamide Allergy Unknown rash, hives Verified 06/19/23 13:26 Antibiotics) aspirin Allergy Unknown Verified 06/19/23 13:26 Medications Home Medications Medication Instructions Recorded Confirmed Last Taken amlodipine 5 mg tablet 5 mg PO QDL 02/25/20 02/25/25 02/07/22 biotin 1 mg capsule 1 mg PO HS 01/18/22 02/25/25 02/07/22 cholecalciferol (vitamin D3) 25 1,000 mcg PO QAM 01/18/22 02/25/25 02/07/22 mcg (1,000 unit) tablet (Vitamin D3) levothyroxine 100 mcg tablet 100 mcg PO DAILYBB 01/18/22 02/25/25 02/07/22 loratadine 10 mg tablet (Claritin) 10 mg PO DAILY PRN allergies 01/18/22 02/25/25 02/07/22 atorvastatin 40 mg tablet 80 mg (2 x 40 mg) PO QAM #60 tabs 02/10/22 02/25/25 Unknown clopidogrel 75 mg tablet 75 mg PO QAM #30 tabs 02/10/22 02/25/25 Unknown ezetimibe 10 mg tablet 10 mg PO DAILY 02/25/25 02/25/25 Unknown Active Medications Generic Name Dose Route Start Last Admin Trade Name Freq PRN Reason Stop Dose Admin Amlodipine Besylate 5 mg 02/26/25 09:00 02/26/25 09:21 Amlodipine Besylate 5 Mg Tab PO 03/28/25 08:59 5 mg QAM BHANU Administration Atorvastatin Calcium 80 mg 02/26/25 09:00 02/26/25 09:20 Atorvastatin 40 Mg Tab PO 03/28/25 08:59 80 mg QAM BHANU Administration Ezetimibe 10 mg 02/26/25 09:00 02/26/25 09:21 Ezetimibe 10 Mg Tab PO 03/28/25 08:59 10 mg DAILY BHANU Administration Metronidazole 500 mg in 100 mls @ 100 mls/hr 02/25/25 18:45 02/26/25 12:35 Flagyl IV 03/07/25 18:44 Infused Q8H BHANU Infusion Protocol Ceftriaxone Sodium 2,000 mg in 50 mls @ 100 mls/hr 02/26/25 10:00 02/26/25 12:35 Rocephin IV 03/08/25 09:59 Infused Q24H BHANU Infusion Acetaminophen 1,000 mg in 100 mls @ 400 mls/hr 02/25/25 17:30 02/26/25 05:54 Ofirmev IV 02/28/25 17:29 Infused Q8H BHANU Infusion Potassium Chloride/Sodium Chloride 20 meq in 1,000 mls @ 100 mls/hr 02/26/25 10:15 02/26/25 10:30 Normal Saline W/20 Meq Kcl IV 02/27/25 10:14 100 mls/hr .Q10H BHANU Administration Levothyroxine Sodium 100 mcg 02/26/25 06:30 02/26/25 05:41 Levothyroxine Sodium 100 Mcg Tablet PO 03/28/25 06:29 100 mcg DAILYBB BHANU Administration Ondansetron HCl 4 mg 02/25/25 11:51 02/26/25 10:36 Ondansetron Inj 2 Mg/Ml 2 Ml Vial IV 03/27/25 11:50 4 mg Q6H PRN Administration Nausea And Vomiting Vitamin D 25 mcg 02/26/25 09:00 02/26/25 09:21 Cholecalciferol 25 Mcg (1000 Units) Tab PO 03/28/25 08:59 25 mcg QAM BHANU Administration NPO Date Last Intake of Fluids: 02/26/25 Time Last Intake of Fluids: 00:00 Date Last Intake of Solids: 02/26/25 Time Last Intake of Solids: 00:00 Past Medical History Medical History Urinary urgency Stroke Ambulatory dysfunction Lacunar infarct, acute Pulmonary nodule Hepatic steatosis Menopause Arthritis Encounter for pre-operative examination Abdominal pain Acute appendicitis Rectocele Exercise / Class Metabolic Activity II 4-5 Yardwork/Stairs/Walk up hill Past Family History Family History Mother Lung cancer Hypothyroidism Father Diabetes Hypertension Sister Hypothyroidism Denies family history of Ovarian cancer Breast cancer Colorectal cancer Past Surgical History Surgical History S/P appy History of vaginal hysterectomy with anterior and posterior repair x 2, second in 07/2020 History of tonsillectomy H/O oral surgery Tooth extraction Past Anesthesia History No Hx of Anesthesia Complications and No Family Hx of Anesthesia Complications History of PONV No Hx of PONV and No Hx of Motion Sickness Social History Smoking Status: Never smoker Do You Dip or Chew Tobacco: No Hx Alcohol Use: No Alcohol type: wine alcohol intake frequency: holidays/special occasions only Hx Substance Use: No substance use type: does not use Review of Systems denies fever/cough/ colds/ chest pain/ SOB/ JESSENIA denies JESSENIA Physical Exam Vital Signs Last Vital Signs Temp 37.4 C 02/26/25 11:10 Pulse 74 02/26/25 11:10 Resp 17 02/26/25 11:10 BP 123/60 02/26/25 11:10 Pulse Ox 93 02/26/25 11:10 O2 Del Method Room Air 02/26/25 11:10 ENMT Mouth: no TMJ abnormality and no dentition abnormality Thyromental Distance: > or= 3.5 Finger Breadths Mallampati Class: II Neck neck extension not limited Respiratory normal respiratory effort; no respiratory distress Auscultation: lungs clear to auscultation bilaterally Cardiovascular Rate/Rhythm: regular rate and regular rhythm Neurologic moves all extremities Psychiatric Orientation: alert and oriented x 3 Testing Laboratory Results 02/26/25 05:38 02/26/25 05:38 Urine Color Dark Yellow 02/25/25 18:15 Urine Appearance Clear (Clear) 02/25/25 18:15 Urine pH 5.5 (4.5-7.5) 02/25/25 18:15 Ur Specific [place] > 1.045 (1.000-1.030) H 02/25/25 18:15 Urine Protein 1+ (Negative) H 02/25/25 18:15 Urine Glucose (UA) Negative (Negative) 02/25/25 18:15 Urine Ketones 1+ (Negative) H 02/25/25 18:15 Urine Nitrite Positive (Negative) A 02/25/25 18:15 Ur Leukocyte Esterase Negative (Negative) 02/25/25 18:15 Urine WBC (Auto) 0-5 /hpf (0-5) 02/25/25 18:15 Urine RBC (Auto) >20 /hpf (0-2) H 02/25/25 18:15 U Hyaline Cast (Auto) 0-2 /lpf (0-2) 02/25/25 18:15 U Epithel Cells (Auto) 0-2 /hpf (0-2) 02/25/25 18:15 Urine Bacteria (Auto) None Seen (None Seen) 02/25/25 18:15
[2025-02-26] MEDS: LACTATED RINGER'S 1,000 ML IV SCH (14:11)
[2025-02-26] MEDS ORDERED: SUCCINYLCHOLINE CHLORIDE 20 MG/ML 10 ML VIAL IV ONE (14:28)
--- NOTE | 2025-02-26 15:17 | GI REPORT ---
[facility] Patient: EDILBERTO LEAL : 1955 Sex at : Female Age: 69 Years Procedure: ERCP Date: 02/26/2025 Attending Physician: Manolo Thomas MD Referring MD: Souleymane Gan DO Indications: - Bile duct stone(s) Medications: - General Anesthesia Complications: - No immediate complications. Estimated Blood Loss: - Estimated blood loss: None. Procedure: - Prior to the procedure, a History and Physical was performed, and patient medications, allergies and sensitivities were reviewed. The patient's tolerance of previous anesthesia was reviewed. - The risks and benefits of the procedure and the sedation options and risks were discussed with the patient. All questions were answered and informed consent was obtained. - The ercp scope was introduced through the mouth and advanced to the duodenum and used to locate the major papilla. - The ERCP was technically difficult and complex due to challenging cannulation because of abnormal anatomy. - The patient tolerated the procedure well. Findings: - The health services coordinator film was normal. 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 Unable to access ampulla due to location. Procedure terminated without successful cannulation. 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 Unable to access ampulla due to location. Procedure terminated without successful cannulation. Recommendation: - Return patient to [facility] for [facility] care. - Clear liquid diet today. - Continue present medications. Recommend MRCP to confirm presence of CBD stone. Procedure Code(s): - 48145, Esophagogastroduodenoscopy, flexible, transoral; diagnostic, including collection of specimen(s) by brushing or washing, when performed (separate procedure) Diagnosis Code(s): - K80.50, Calculus of bile duct without cholangitis or cholecystitis without obstruction CPT(R) - 2023 copyright [employer]. All Rights Reserved. The CPT codes, CCI edits and ICD codes generated are intended as suggestions and were generated based on input data. These codes are preliminary and upon washer assembler review may be revised to meet current compliance and payer requirements. The provider is responsible for the final determination of appropriate codes, and modifiers. Manolo Thomas MD This document has been electronically signed. Note Initiated:02/26/2025 Note Completed:02/26/2025 3:16 PM [email or web address]\Results\[email or web address]\[id number]
--- NOTE | 2025-02-26 16:04 | Anesthesiology Progress Note ---
Date of Service February 26, 2025 Anesthesia Post Procedure Vital Signs Vital Signs: Temp Pulse Pulse Pulse Resp BP BP 02/26/25 15:40 37.4 C 101 H 22 143/69 H 02/26/25 15:30 102 H 22 154/69 H 02/26/25 15:20 104 H 20 155/74 H 02/26/25 15:14 36.1 C L 110 H 18 148/71 H 02/26/25 13:46 37.1 C 99 H 20 168/71 H 02/26/25 13:01 84 02/26/25 11:10 37.4 C 74 17 123/60 02/26/25 07:18 36.8 C 75 18 120/74 02/26/25 05:50 91 H 02/26/25 02:59 36.6 C 84 18 140/80 02/25/25 22:35 36.6 C 97 H 18 138/72 02/25/25 22:34 89 02/25/25 19:29 36.7 C 90 18 141/75 H Pulse Ox O2 Del Method O2 Flow Rate 02/26/25 15:40 92 Room Air 02/26/25 15:30 96 Oxymask 2 02/26/25 15:20 97 Oxymask 4 02/26/25 15:14 99 Oxymask 4 02/26/25 13:46 94 Room Air 02/26/25 13:01 02/26/25 11:10 93 Room Air 02/26/25 07:18 98 Room Air 02/26/25 05:50 02/26/25 02:59 93 Room Air 02/25/25 22:35 92 Room Air 02/25/25 22:34 02/25/25 19:29 96 Room Air Pain Intensity Right Abdomen: Pain Intensity: 9 Transfer of Care Handoff Completed per policy Notes Mental Status: alert / awake / arousable and participated in evaluation Patient Amnestic to Procedure: Yes Nausea / Vomiting: adequately controlled Pain: adequately controlled Airway Patency, RR, SpO2: stable & adequate BP & HR: stable & adequate Hydration State: stable & adequate Anesthetic Complications: no major complications apparent and Pt Satisfied with anesthetic care
[2025-02-26 18:10] VITALS: O2SAT 92
[2025-02-26] MEDS: ACETAMINOPHEN 1,000 MG/100 ML VIAL IV PRN (19:56)
--- NOTE | 2025-02-27 00:54 | Magnetic Resonance Report ---
Exam(s): MRI MRCP EXAM: MR Abdomen Without Intravenous Contrast, MRCP Protocol CLINICAL HISTORY: Reason for exam: unable to cannulate ampulla, eval for CBD stone. TECHNIQUE: Multiplanar magnetic resonance images of the abdomen without intravenous contrast using MRCP protocol. COMPARISON: No relevant prior studies available. FINDINGS: The gallbladder is distended and contains sludge. There is a stone in the neck of the gallbladder. There is also marked gallbladder wall thickening. The lower aspect of the common bile duct is dilated to at least 11 mm. The distended gallbladder appears to cause some mass-effect on the upper aspect of the common bile duct causing diffuse narrowing relative to the distal aspect. There is abnormal material in the distal common bile duct which may represent a combination of sludge and small stones. No pancreatic duct dilatation. The pancreas has a normal appearance. No abnormalities noted of the liver or spleen. Numerous parapelvic cysts in the kidneys. No hydronephrosis. Small amount of perinephric fluid. Very small pleural effusions. IMPRESSION: Acute cholecystitis. The gallbladder is distended with marked abnormal wall thickening. Sludge and stones are seen in the gallbladder with a stone in the neck of the gallbladder. Dilated common bile duct at 11 mm. Abnormal material in the distal common bile duct which may represent a combination of sludge and small stones. Electronically signed by: Joel Chavez MD 02/27/25 00:54 AM
[2025-02-27] MEDS ORDERED: Nursing to Pharmacy Communication SCH (04:30)
[2025-02-27 06:23] LABS: A calco-baum cmplx NotReported Not Detected (NotDetected); Bact fragilis Not Reported Not Detected (NotDetected); Blood Culture Id Panel See PCR Comment (NotDetected); C auris Not Reported Not Detected (NotDetected); Calbicans Not Reported Not Detected (NotDetected); Candida glabrata Not Reported Not Detected (NotDetected); Candida krusei Not Reported Not Detected (NotDetected); Cneoformans/gatti Not Reported Not Detected (NotDetected); Cparapsilosis Not Reported Not Detected (NotDetected); Ctropicalis Not Reported Not Detected (NotDetected); E cloacae compx Not Reported Not Detected (NotDetected); Efaecalis Not Reported Not Detected (NotDetected); Efaecium Not Reported Not Detected (NotDetected); Enterobacterales Not Reported Not Detected (NotDetected); Escherichia coli Not Reported Not Detected (NotDetected); H influenzae Not Reported Not Detected (NotDetected); K aerogenes Not Reported Not Detected (NotDetected); Koxytoca Not Reported Not Detected (NotDetected); Kpneumoniae grp Not Reported Not Detected (NotDetected); Lmonocyt Not Reported Not Detected (NotDetected); N meningitidis Not Reported Not Detected (NotDetected); P aeruginosa Not Reported Not Detected (NotDetected); Proteus spp Not Reported Not Detected (NotDetected); Salmonella spp Not Reported Not Detected (NotDetected); Staph lugdunensis Not Reported Not Detected (NotDetected); Staph spp. Not Reported DETECTED (NotDetected); Staphaureus Not Reported Not Detected (NotDetected); Staphepi Not Reported DETECTED (NotDetected); Staphylococcus spp. DETECTED (NotDetected); Stenmaltophilia Not Reported Not Detected (NotDetected); Strep agal(GrpB) Not Reported Not Detected (NotDetected); Strep pneum Not Reported Not Detected (NotDetected); Strep pyog (GrpA) Not Reported Not Detected (NotDetected); Strep spp Not Reported Not Detected (NotDetected); mecAC Resistant Gene DETECTED (NotDetected)
[2025-02-27 06:38] LABS: Staphylococcus epidermidis DETECTED (NotDetected)
[2025-02-27 06:46] LABS: Basophils # (auto) 0.07 K/uL (0.00-0.20); Basophils % (auto) 0.6 %; Eosinophils # (auto) 0.11 K/uL (0.00-0.50); Eosinophils % (auto) 0.9 %; Hematocrit (blood only) 34.1 % (37.0-47.0); Hemoglobin 11.4 g/dl (12.0-16.0); Immature Granulocytes # (auto) 0.15 K/uL (0.01-0.20); Immature Granulocytes % (auto) 1.2 %; Lymphocytes # (auto) 0.84 K/uL (1.20-3.40); Lymphocytes % (auto) 6.7 %; Mean Corpuscular Hemoglobin 29.8 pg (25.0-34.0); Mean Corpuscular Hgb Conc 33.4 g/dL (32.0-36.0); Mean Corpuscular Volume 89.3 fL (80.0-100.0); Mean Platelet Volume 10.1 fL (9.4-12.4); Monocytes # (auto) 1.12 K/uL (0.11-0.59); Monocytes % (auto) 8.9 %; Neutrophils # (auto) 10.27 K/uL (1.40-6.50); Neutrophils % (auto) 81.7 %; Platelet Count 197 K/uL (130-400); RDW Coefficient of Variation 13.9 % (11.5-14.5); RDW Standard Deviation 45.3 fL (36.4-46.3); Red Blood Count 3.82 M/uL (4.20-5.40); White Blood Count 12.56 K/ul (4.8-10.8)
[2025-02-27 07:09] LABS: Albumin Level 2.8 gm/dl (3.4-5.0); BUN Creatinine Ratio 14.5 (10-20); Bilirubin Direct 0.3 mg/dl (0-0.2); Bilirubin,Total 0.9 mg/dl (0.2-1.0); Calcium 7.7 mg/dl (8.6-10.3); Creatinine Clr Calc Pharmacy 78.3 ml/min; Potassium 3.5 mmol/L (3.5-5.1); Total Protein 5.3 gm/dl (6.0-8.3)
[2025-02-27 07:51] VITALS: BP 127/72; PULSE 84; RESP 18; TEMP 98.1
--- NOTE | 2025-02-27 09:22 | Gastroenterology Progress Note ---
Date of Service February 27, 2025 Assessment & Plan (1) Cholecystitis: Plan: 69 year old female with history HTN, hypothyroidism, hypothyroidism, lacunar infarct on Plavix admitted w/ abd pain, nausea/vomiting and chills since Monday. CT w/ severe acute cholecystitis, cholelithiasis, 1.3 cm gallstone within the gallbladder neck, biliary ductal dilation w/ CBD 1.2 cm and a probable small 4 mm gallstone within the distal common bile duct. S/P ERCP yesterday, however, incomplete examination as ampulla was deep in a diverticulum. MRCP w abnormal material in the distal common bile duct which may represent a combination of sludge and small stones. Blood cultures this AM now showing gram positive cocci. - Maintain NPO status - Transfer recommended to tertiary center - Hold Plavix - Continue w/ IV ABX - Trend LFTs I spent a total of 40 minutes on the date of service in review of patient's record, and previously obtained information in person and appropriate medical visit, discussion and education of plan, with patient and/or caregiver, placing orders for tests/referral/procedures as medically necessary and documentation of pertinent clinical information in patient's medical records for their visit today. (2) Dilation of biliary tract: Admission and Anticipated Discharge Date Admission Date: February 25, 2025 Supervising Physician Co-Signing Physician Notes I saw and examined this patient with our nurse practitioner and agree with her assessment and plan. Unable to access biliary tract endoscopically due to location of the ampulla deep in a diverticulum. MRI still confirms there is choledocholithiasis. Recommend transfer to tertiary care center for reattempt endoscopically or radiographically to obtain access to the biliary tree and removal of the common bile duct stones as well as to address her acute cholecystitis. Continue antibiotic therapy. Subjective Pt was seen and evaluated, chart reviewed. ERCP attempted yesterday, incomplete examination as ampulla was deep in a diverticulum. MRCP ordered, concern for persistent filling defect. Recommendation of transfer discussed. Blood cultures this AM now showing gram positive cocci. WBC 12.56 - on Flagyl/Ceftriaxone. Her LFTs are within normal range. MRCP: acute cholecystitis. The gallbladder is distended with marked abnormal wall thickening. Sludge and stones are seen in the gallbladder with a stone in the neck of the gallbladder.Dilated common bile duct at 11 mm. Ab normal material in the distal common bile duct which may represent a combination of sludge and small stones. Review of Systems Review of Systems: All other findings negative except as noted in HPI. Physical Exam Constitutional: WD/WN, vitals as above Respiratory: normal respiratory effort Cardiovascular: Rate/Rhythm: regular rate and regular rhythm Gastrointestinal (Abdomen): normal bowel sounds, soft, nontender, no hepatosplenomegaly Skin: no rashes, warm and dry Results & Data Results & Data Vital Signs (Past 12 Hours) Vital Signs Temp Pulse Pulse Resp BP BP Pulse Ox 02/27/25 07:40 98.1 F 84 18 127/72 92 02/26/25 21:43 99.3 F 88 20 110/66 92 O2 Del Method 02/27/25 07:40 Room Air 02/26/25 21:43 Room Air Laboratory Results 02/27/25 02/25/25 Range/Units 06:28 12:29 WBC 12.56 H (4.8-10.8) K/ul RBC 3.82 L (4.20-5.40) M/uL Hgb 11.4 L (12.0-16.0) g/dl Hct 34.1 L (37.0-47.0) % MCV 89.3 (80.0-100.0) fL MCH 29.8 (25.0-34.0) pg MCHC 33.4 (32.0-36.0) g/dL RDW Std Deviation 45.3 (36.4-46.3) fL RDW Coeff of Abilio 13.9 (11.5-14.5) % Plt Count 197 (130-400) K/uL MPV 10.1 (9.4-12.4) fL Immature Gran % (Auto) 1.2 % Neut % (Auto) 81.7 % Lymph % (Auto) 6.7 % [place] % (Auto) 8.9 % Eos % (Auto) 0.9 % Baso % (Auto) 0.6 % Neut # (Auto) 10.27 H (1.40-6.50) K/uL Lymph # (Auto) 0.84 L (1.20-3.40) K/uL [place] # (Auto) 1.12 H (0.11-0.59) K/uL Eos # (Auto) 0.11 (0.00-0.50) K/uL Baso # (Auto) 0.07 (0.00-0.20) K/uL Immature Gran # (Auto) 0.15 (0.01-0.20) K/uL Sodium 139 (136-145) mmol/L Potassium 3.5 (3.5-5.1) mmol/L Chloride 110 H (98-107) mmol/L Carbon Dioxide 26 (21-32) mmol/L Anion Gap 3 (3-11) BUN 10 (6-23) mg/dl Creatinine 0.69 (0.6-1.2) mg/dl Est Cr Clr Drug Dosing 78.3 ml/min eGFR 93.30 BUN/Creatinine Ratio 14.5 (10-20) Glucose 131 H (70-99(Fasting)) mg/dl Calcium 7.7 L (8.6-10.3) mg/dl Total Bilirubin 0.9 (0.2-1.0) mg/dl Direct Bilirubin 0.3 H (0-0.2) mg/dl AST 27 (13-39) U/L ALT 23 (7-52) U/L Alkaline Phosphatase 50 (34-104) U/L Total Protein 5.3 L (6.0-8.3) gm/dl Albumin 2.8 L (3.4-5.0) gm/dl Staphylococcus sp PCR DETECTED A (NotDetected) mecA/C-Methicil Resis Gene DETECTED A (NotDetected) Staph epidermidis (PCR) DETECTED A (NotDetected) Bld Cult ID Panel PCR See PCR Comment (NotDetected) PG Care Time/CCT Total # of Minutes Spent Total Time Spent with Patient: Total time spent is greater than 50% in coordination of care (as documented) at patient's floor/unit and/or counseling patient: Coding Level of Care Code 74987 SUB INP/OBS CARE 235MIN Diagnoses Cholecystitis K81.9 Dilation of biliary tract K83.8
--- NOTE | 2025-02-27 09:23 | Electrocardiogram Report ---
Test Reason : Blood Pressure : */* mmHG Vent. Rate : 111 BPM Atrial Rate : 111 BPM P-R Int : 130 ms QRS Dur : 76 ms QT Int : 298 ms P-R-T Axes : 28 30 11 degrees QTcB Int : 405 ms Sinus tachycardia Possible Left atrial enlargement Nonspecific ST abnormality Abnormal ECG When compared with ECG of 08-Feb-2022 11:27, No significant change was found Confirmed by Luis Carpenter ([id number]) on 02/27/2025 9:23:25 AM Referred By: REFERRED SELF Confirmed By: Luis Carpenter
--- NOTE | 2025-02-27 11:04 | Surgery Progress Note ---
Date of Service February 27, 2025 Assessment & Plan (1) Acute calculous cholecystitis: (2) Dilated cbd, acquired: Plan: 69 yo female with 4 day history of abdominal pain, nausea and vomiting thought secondary due food poisoning but RUQ pain persistent and CT scan showing severe acute cholecystitis with possible choledocholithiasis. WBC of 16k and t. bili slightly elevated. Abdominal examination with RUQ tenderness to palpation. No jaundice. Last dose of Plavix was Monday. Discussed with patient given her severe cholecystitis, recent dose of plavix and 4 days of symptoms she would be at increased risk of surgical intervention at this time. Would like to cool gallbladder off and plan for outpatient cholecystectomy in 6 weeks pending ERCP findings tomorrow, clinical improvement of symptoms, improvement of leukocytosis and remains afebrile on IV abx. Would recommend at least 3 days of IV abx given severe cholecystitis on imaging. 02/27/25 febrile yesterday 37.9 tmax, afebrile today leukocytosis improved to 12k (13 k, 16K) abdominal pain improving no n,v Plan: Transfer in process as MRCP showing dilated CBD and likely choledocholithiasis Continue IV abx Continue medical management. Continue pain management as needed. Continue to hold Plavix for ERCP today. Can follow-up with Dr. carroll 1-2 weeks after discharge to discuss surgical planning for elective outpatient cholecystectomy in 6 weeks. Will need two full weeks of IV and oral antibiotics. low fat diet on discharge recommended Admission and Anticipated Discharge Date Admission Date: February 25, 2025 Subjective feeling frustrated abdominal pain is slowly improving low grade fever last night no n,v transfer in process as ERCP unable to be completed yesterday due to diverticulum and unable to cannulate distal CBD. Physical Exam Constitutional: WD/WN, vitals as above cooperative and comfortable; no acute distress and not ill appearing Respiratory: normal respiratory effort; no respiratory distress and no labored breathing Gastrointestinal (Abdomen): Inspection/Auscultation: abdomen normal to inspection; abdomen not distended Percussion/Palpation: + abdomen tender (RUQ on deep palpation) and abdomen soft; no guarding, abdomen not rigid and abdomen not firm Skin: no rashes, warm and dry Psychiatric: Orientation: alert and oriented x 3 Results & Data Vital Signs (Past 12 Hours) Vital Signs Temp Pulse Resp BP Pulse Ox O2 Del Method 02/27/25 07:40 36.7 C 84 18 127/72 92 Room Air Laboratory Results 02/27/25 02/25/25 Range/Units 06:28 12:29 WBC 12.56 H (4.8-10.8) K/ul RBC 3.82 L (4.20-5.40) M/uL Hgb 11.4 L (12.0-16.0) g/dl Hct 34.1 L (37.0-47.0) % MCV 89.3 (80.0-100.0) fL MCH 29.8 (25.0-34.0) pg MCHC 33.4 (32.0-36.0) g/dL RDW Std Deviation 45.3 (36.4-46.3) fL RDW Coeff of Abilio 13.9 (11.5-14.5) % Plt Count 197 (130-400) K/uL MPV 10.1 (9.4-12.4) fL Immature Gran % (Auto) 1.2 % Neut % (Auto) 81.7 % Lymph % (Auto) 6.7 % [place] % (Auto) 8.9 % Eos % (Auto) 0.9 % Baso % (Auto) 0.6 % Neut # (Auto) 10.27 H (1.40-6.50) K/uL Lymph # (Auto) 0.84 L (1.20-3.40) K/uL [place] # (Auto) 1.12 H (0.11-0.59) K/uL Eos # (Auto) 0.11 (0.00-0.50) K/uL Baso # (Auto) 0.07 (0.00-0.20) K/uL Immature Gran # (Auto) 0.15 (0.01-0.20) K/uL Sodium 139 (136-145) mmol/L Potassium 3.5 (3.5-5.1) mmol/L Chloride 110 H (98-107) mmol/L Carbon Dioxide 26 (21-32) mmol/L Anion Gap 3 (3-11) BUN 10 (6-23) mg/dl Creatinine 0.69 (0.6-1.2) mg/dl Est Cr Clr Drug Dosing 78.3 ml/min eGFR 93.30 BUN/Creatinine Ratio 14.5 (10-20) Glucose 131 H (70-99(Fasting)) mg/dl Calcium 7.7 L (8.6-10.3) mg/dl Total Bilirubin 0.9 (0.2-1.0) mg/dl Direct Bilirubin 0.3 H (0-0.2) mg/dl AST 27 (13-39) U/L ALT 23 (7-52) U/L Alkaline Phosphatase 50 (34-104) U/L Total Protein 5.3 L (6.0-8.3) gm/dl Albumin 2.8 L (3.4-5.0) gm/dl Staphylococcus sp PCR DETECTED A (NotDetected) mecA/C-Methicil Resis Gene DETECTED A (NotDetected) Staph epidermidis (PCR) DETECTED A (NotDetected) Bld Cult ID Panel PCR See PCR Comment (NotDetected) Diagnostic Findings Exam(s): MRI MRCP EXAM: MR Abdomen Without Intravenous Contrast, MRCP Protocol CLINICAL HISTORY: Reason for exam: unable to cannulate ampulla, eval for CBD stone. TECHNIQUE: Multiplanar magnetic resonance images of the abdomen without intravenous contrast using MRCP protocol. COMPARISON: No relevant prior studies available. FINDINGS: The gallbladder is distended and contains sludge. There is a stone in the neck of the gallbladder. There is also marked gallbladder wall thickening. The lower aspect of the common bile duct is dilated to at least 11 mm. The distended gallbladder appears to cause some mass-effect on the upper aspect of the common bile duct causing diffuse narrowing relative to the distal aspect. There is abnormal material in the distal common bile duct which may represent a combination of sludge and small stones. No pancreatic duct dilatation. The pancreas has a normal appearance. No abnormalities noted of the liver or spleen. Numerous parapelvic cysts in the kidneys. No hydronephrosis. Small amount of perinephric fluid. Very small pleural effusions. IMPRESSION: Acute cholecystitis. The gallbladder is distended with marked abnormal wall thickening. Sludge and stones are seen in the gallbladder with a stone in the neck of the gallbladder. Dilated common bile duct at 11 mm. Abnormal material in the distal common bile duct which may represent a combination of sludge and small stones.
[2025-02-27] MEDS: ACETAMINOPHEN 500 MG TAB PO PRN (11:07)
--- NOTE | 2025-02-27 11:31 | Discharge Summary ---
Discharge Summary Date of Service February 27, 2025 Principal Dx & Hospital Course #1 = Principal Diagnosis (1) Acute calculous cholecystitis: (2) Sepsis: (3) Choledocholithiasis with acute cholecystitis: (4) Prediabetes: (5) Hypothyroidism: (6) Hypertension: (7) History of stroke without residual deficits: (8) Hypokalemia: Plan Patient is a 69-year-old female who presented to the emergency room with acute onset of abdominal pain, nausea and diarrhea. I am concerned that she had food poisoning came to the emergency room. In the emergency room laboratory studies and imaging was consistent with acute cholecystitis and choledocholithiasis. Patient was admitted to the hospital. She was placed on Rocephin and metronidazole for management of her acute cholecystitis. GI and surgical consultation was obtained. Was evaluated by surgery who recommended antibiotics and ERCP prior to considering any type of surgical intervention. Her Plavix was held at the time of admission for anticipated procedures. Patient was evaluated by GI. She underwent an attempted ERCP. 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 Follow-up MRCP confirmed gallstones, gall sludge as well as what appears to be sludge and balbina within the common bile duct. Patient's laboratory studies specifically her WBCs improved with antibiotic management. Her LFTs within normal range. Her abdominal pain improved with being kept NPO. Due to the fact that she continue to have obstruction and could not have procedure performed here patient transfer request was placed. We coordinated transfer the patient to [facility] under the service of Dr. Soler to evaluate evaluated by interventional gastroenterology there. Patient and were informed of the transfer. They are agreeable to going to place where the procedure could be done the quickest. Initial report is that potentially the ERCP could be done later on this afternoon if transportation can be arranged. Patient will then be transferred for ongoing care with further up discharge plans to be determined after procedures completed. Notes For Next Care Provider Medication Changes From Visit Ceftriaxone and metronidazole use to treatment of cholecystitis Plavix on hold for procedures Admission HPI Per Admitting Provider 69 year old female with PMH significant for HTN, dyslipidemia, prediabetes, hypothyroidism, and history of CVA who presented to the ED this morning with abdominal pain since Monday. Patient notes that she went out to eat on Monday and around 1914 had to [place] home with acute onset of vomiting and diarrhea. She attributed her symptoms to food poisoning but then developed severe RUQ pain that has been constant since Monday night. She rates the pain as 9/10 and notes it occasionally radiates to her back. She has associated nausea and chills but did not take her temperature to evaluate for fever. She has not vomited or had diarrhea since Monday evening. She reports profound fatigue and notes she was sleeping all day Monday and Monday. She has been eating a bland diet and reports poor hydration. She denies chest pain, SOB, and dysuria. Admission Exam Per Admitting Provider See H&P Discharge Exam Constitutional: Alert HEENT: Mucous membranes moist. Lungs: Clear to auscultation, decreased, no wheezes rales or rhonchi CV: S1-S2, regular Abdomen: Soft, nondistended, minimal right upper quadrant tenderness, no guarding or rigidity Extremities: No significant edema Neuro: No focal deficits Psych: Cooperative, normal mood Updated Medication List Medication Instructions Recorded Confirmed Type amlodipine 5 mg tablet 5 mg PO QDL 02/25/20 02/25/25 History biotin 1 mg capsule 1 mg PO HS 01/18/22 02/25/25 History cholecalciferol (vitamin D3) 25 1,000 mcg PO QAM 01/18/22 02/25/25 History mcg (1,000 unit) tablet (Vitamin D3) levothyroxine 100 mcg tablet 100 mcg PO DAILYBB 01/18/22 02/25/25 History loratadine 10 mg tablet (Claritin) 10 mg PO DAILY PRN allergies 01/18/22 02/25/25 History atorvastatin 40 mg tablet 80 mg (2 x 40 mg) PO QAM #60 tabs 02/10/22 02/25/25 Rx clopidogrel 75 mg tablet 75 mg PO QAM #30 tabs 02/10/22 02/25/25 Rx ezetimibe 10 mg tablet 10 mg PO DAILY 02/25/25 02/25/25 History ceftriaxone 2 gram solution for 2 g IV DAILY #1 ea 02/27/25 Rx injection Hospital Stay Data Consultations 02/25/25 10:50 ED Decision to Admit Stat 02/25/25 13:05 Consult Gastroenterology Routine Consult General Surgery Routine Procedures Performed Operation Date: 02/26/25 07:00 Actual Procedures p Endoscopic Retrograde Cholangiopancreato - Manolo Keisha Thomas MD Diagnostic Imagining Performed 02/25/25 08:58 CT abd pelvis IV con only Stat 02/26/25 12:00 FL ERCP biliary ductal Routine 02/26/25 15:07 MR MRCP Routine Reviewed imaging, laboratory and diagnostic studies. Pertinent findings as below. WBCs 12.5, improving Hemoglobin 11.4 Platelets of 197 Sodium 139 Potassium 3.5 Carbon dioxide 26 BUN 10 Creatinine 0.69 Calcium 7.7 Total bilirubin 0.9 Direct bilirubin 0.3 AST 27 ALT 23 Alk phos 50 MRCP shows acute cholecystitis with gallbladder distended and thickened. Sludge and stones seen within the gallbladder and the neck of the gallbladder. Common bile duct dilated to 11 mm with abnormal material in the distal common bile duct. ERCP report states that the ampulla was located deep within the complex diverticulum and unable to access ampulla and unable to perform a successful cannulation. Pending Results Patient Have Any Pending Studies at Discharge: Yes Discharge Instructions Given to Patient (Per Discharging Provider) You are being transferred to [facility]. They have an excellent luggage maker that is very skilled with the procedure that you need. Total Time Total Time Spent Total Time Spent (In Minutes): 42
== END 2025-02-27 13:14 | disposition short-term general hospital (02) | DRG 872 ==
LOC: ED 07:46 → 4W 11:42 → SUATTDRO 11:42 → 4W 13:31 → 3N 02-26 16:04 → 3W 02-26 18:08